=== PATIENT | female | born 1950 | race African-American/Black ===

== ENCOUNTER → 2016-10-09 | Outpatient (CLI) | payer MEDICARE ==
[~2016-10-09] MED LIST: HEPARIN SO5000 UNIT2 SUBQ; LEVEMIR FL100 UNIT/1 SUBQ; MAGNEBIND 3001 EACH PO; NORVASC5 MG ORAL; NOVOLOG100 UNITS1 SUBQ; ROCEPHIN 11 GM/50 ML IVPB
[2016-10-09 16:42] LABS: BASOPHILS % (AUTO) 1.4 % (0.0-2.0); EOSINOPHILS % (AUTO) 0.2 % (0.0-3.0); LYMPHOCYTES % (AUTO) 24.8 % (20.0-45.0); MEAN CORPUSCULAR HEMOGLOBIN 30.6 PG (27.0-31.0); MEAN CORPUSCULAR VOLUME 90 FL (80-99); MEAN PLATELET VOLUME 11.3 FL (6.5-10.1); MONOCYTES % (AUTO) 9.5 % (1.0-10.0); NEUTROPHILS % (AUTO) 64.1 % (45.0-75.0); PLATELET COUNT 177 K/UL (150-450); RED BLOOD COUNT 3.69 M/UL (4.20-5.40); RED CELL DISTRIBUTION WIDTH 11.8 % (11.6-14.8); WHITE BLOOD COUNT 5.4 K/UL (4.8-10.8)
[2016-10-09 16:56] LABS: HEMOGLOBIN A1C 6.2 % (< 6.0)
[2016-10-09 16:57] LABS: CALCIUM 10.1 mg/dL (8.6-10.2); CHOLESTEROL/HDL RATIO 1.8 (3.3-4.4); CREATININE 1.9 mg/dL (0.5-0.9); POTASSIUM 4.6 mEQ/L (3.4-4.9)
[2016-10-09 17:07] LABS: THYROID STIMULATING HORMONE 1.98 uIU/mL (0.300-4.500)
== END | disposition home or self-care (01) ==
LOC: LAB 16:18
DX: I10 Essential (primary) hypertension (principal); E11.9 Type 2 diabetes mellitus without complications
CPT/HCPCS: 36415; 80048; 80061; 83036; 84443; 85025

== ENCOUNTER → 2016-12-04 | Outpatient (CLI) | payer MEDICARE ==
[2016-12-04 14:31] LABS: APPEARANCE,URINE CLEAR; BASOPHILS % (AUTO) 1.1 % (0.0-2.0); EOSINOPHILS % (AUTO) 0.4 % (0.0-3.0); KETONES,URINE NEGATIVE (NEGATIVE); LEUKOCYTE ESTERASE ,URINE 1+ (NEGATIVE); MEAN CORPUSCULAR HEMOGLOBIN 28.6 PG (27.0-31.0); MEAN CORPUSCULAR HGB CONC 31.4 G/DL (32.0-36.0); MEAN CORPUSCULAR VOLUME 91 FL (80-99); MONOCYTES % (AUTO) 10.4 % (1.0-10.0); NEUTROPHILS % (AUTO) 59.1 % (45.0-75.0); NITRITE,URINE NEGATIVE (NEGATIVE); PH,URINE 5 (4.5-8.0); PLATELET COUNT 180 K/UL (150-450); PROTEIN,URINE 2+ (NEGATIVE); RED BLOOD COUNT 3.78 M/UL (4.20-5.40); RED CELL DISTRIBUTION WIDTH 12.3 % (11.6-14.8); UROBILINOGEN,URINE NORMAL MG/DL (0.0-1.0); WHITE BLOOD COUNT 4.5 K/UL (4.8-10.8)
[2016-12-04 14:39] LABS: BACTERIA,URINE FEW /HPF; RBC,URINE 0-2 /HPF (0 - 2); SQUAMOUS EPITHELIAL CELL,UR FEW /LPF (NONE/OCC); WBC,URINE 0-2 /HPF (0 - 2)
[2016-12-04 14:51] LABS: CALCIUM 10.1 mg/dL (8.6-10.2); CREATININE 1.7 mg/dL (0.5-0.9); GLOMERULAR FILTRATION RATE 36.5 mL/min (>60); PHOSPHORUS 3.5 mg/dL (2.5-4.8); POTASSIUM 4.5 mEQ/L (3.4-4.9)
[2016-12-05 11:12] LABS: CALCIUM 9.8 mg/dL (8.7-10.3); PTH INTACT 74 pg/mL (15-65)
== END | disposition home or self-care (01) ==
LOC: LAB 14:03
DX: I12.9 Hypertensive chronic kidney disease with stage 1 through stage 4 chronic kidney disease, or unspecified chronic kidney disease (principal); E11.9 Type 2 diabetes mellitus without complications
CPT/HCPCS: 36415; 80048; 81003; 83970; 84100; 85025

== ENCOUNTER 2017-08-12 13:09 | Outpatient (CLI) | payer MEDICARE ==
[2017-08-12 13:37] LABS: EOSINOPHILS % (AUTO) 0.6 % (0.0-3.0); LYMPHOCYTES % (AUTO) 23.2 % (20.0-45.0); MEAN CORPUSCULAR HEMOGLOBIN 28.7 PG (27.0-31.0); MEAN CORPUSCULAR HGB CONC 31.2 G/DL (32.0-36.0); MEAN CORPUSCULAR VOLUME 92 FL (80-99); MEAN PLATELET VOLUME 10.1 FL (6.5-10.1); MONOCYTES % (AUTO) 8.6 % (1.0-10.0); NEUTROPHILS % (AUTO) 66.6 % (45.0-75.0); PLATELET COUNT 188 K/UL (150-450); RED BLOOD COUNT 3.61 M/UL (4.20-5.40); RED CELL DISTRIBUTION WIDTH 11.1 % (11.6-14.8); WHITE BLOOD COUNT 5.3 K/UL (4.8-10.8)
[2017-08-12 13:48] LABS: HEMOGLOBIN A1C 6.8 % (4.3-6.0)
[2017-08-12 13:59] LABS: ANION GAP 8 mmol/L (5-15); CALCIUM 9.9 MG/DL (8.5-10.1); CARBON DIOXIDE 30 MMOL/L (21-32); CHLORIDE 104 MMOL/L (98-107); CHOLESTEROL 181 MG/DL (< 200); CHOLESTEROL/HDL RATIO 1.8 (3.3-4.4); CREATININE 1.9 MG/DL (0.55-1.30); GLOMERULAR FILTRATION RATE 31.9 mL/min (>60); POTASSIUM 5.2 MMOL/L (3.5-5.1); SODIUM 142 MMOL/L (136-145); THYROID STIMULATING HORMONE 2.163 uiU/mL (0.360-3.740)
== END 2017-08-12 15:09 | disposition home or self-care (01) ==
LOC: LAB 13:09
DX: N18.9 Chronic kidney disease, unspecified (principal)
CPT/HCPCS: 36415; 80048; 80061; 83036; 84443; 85025

== ENCOUNTER 2017-10-07 16:07 | Outpatient (CLI) | payer MEDICARE ==
[2017-10-07 17:09] LABS: BASOPHILS % (AUTO) 1.1 % (0.0-2.0); EOSINOPHILS % (AUTO) 0.5 % (0.0-3.0); HEMATOCRIT 31.9 % (37.0-47.0); HEMOGLOBIN 9.9 G/DL (12.0-16.0); MEAN CORPUSCULAR VOLUME 92 FL (80-99); MONOCYTES % (AUTO) 8.7 % (1.0-10.0); NEUTROPHILS % (AUTO) 70.8 % (45.0-75.0); PLATELET COUNT 189 K/UL (150-450); RED BLOOD COUNT 3.48 M/UL (4.20-5.40); RED CELL DISTRIBUTION WIDTH 11.1 % (11.6-14.8); WHITE BLOOD COUNT 5.4 K/UL (4.8-10.8)
[2017-10-07 17:30] LABS: ANION GAP 9 mmol/L (5-15); BLOOD UREA NITROGEN 41 mg/dL (7-18); CALCIUM 9.6 MG/DL (8.5-10.1); CARBON DIOXIDE 31 MMOL/L (21-32); CHLORIDE 103 MMOL/L (98-107); CHOLESTEROL 206 MG/DL (< 200); CREATININE 2.3 MG/DL (0.55-1.30); HDL CHOLESTEROL 105 MG/DL (40-60); POTASSIUM 4.4 MMOL/L (3.5-5.1); SODIUM 143 MMOL/L (136-145); TRIGLYCERIDES 31 MG/DL (30-150)
== END 2017-10-07 18:07 | disposition home or self-care (01) ==
LOC: LAB 16:07
DX: R53.83 Other fatigue (principal)
CPT/HCPCS: 36415; 80048; 80061; 83036; 84443; 85025

== ENCOUNTER → 2018-01-08 | Outpatient (CLI) | payer MEDICARE ==
[2018-01-08 14:52] LABS: APPEARANCE,URINE CLEAR; BILIRUBIN, URINE NEGATIVE (NEGATIVE); COLOR,URINE PALE YELLOW; GLUCOSE, URINE (UA) NEGATIVE (NEGATIVE); KETONES,URINE NEGATIVE (NEGATIVE); LEUKOCYTE ESTERASE ,URINE 1+ (NEGATIVE); NITRITE,URINE NEGATIVE (NEGATIVE); PH,URINE 6 (4.5-8.0); PROTEIN,URINE 2+ (NEGATIVE); UROBILINOGEN,URINE NORMAL MG/DL (0.0-1.0)
[2018-01-08 15:57] LABS: ANION GAP 8 mmol/L (5-15); BLOOD UREA NITROGEN 32 mg/dL (7-18); CALCIUM 9.4 MG/DL (8.5-10.1); CARBON DIOXIDE 30 MMOL/L (21-32); CHLORIDE 103 MMOL/L (98-107); CREATININE 1.5 MG/DL (0.55-1.30); PHOSPHORUS 3.6 MG/DL (2.5-4.9); SODIUM 140 MMOL/L (136-145)
== END | disposition home or self-care (01) ==
LOC: LAB 14:31
DX: N18.3 Chronic kidney disease, stage 3 (moderate) (principal); E08.22 Diabetes mellitus due to underlying condition with diabetic chronic kidney disease
CPT/HCPCS: 36415; 80048; 81001; 83970; 84100

== ENCOUNTER 2018-04-09 13:37 | Outpatient (CLI) | payer MEDICARE ==
[2018-04-09 14:58] LABS: BASOPHILS % (AUTO) 1.3 % (0.0-2.0); EOSINOPHILS % (AUTO) 0.7 % (0.0-3.0); HEMOGLOBIN 9.5 G/DL (12.0-16.0); LYMPHOCYTES % (AUTO) 22.5 % (20.0-45.0); MEAN CORPUSCULAR VOLUME 88 FL (80-99); MONOCYTES % (AUTO) 7.8 % (1.0-10.0); NEUTROPHILS % (AUTO) 67.8 % (45.0-75.0); PLATELET COUNT 187 K/UL (150-450); RED BLOOD COUNT 3.43 M/UL (4.20-5.40); RED CELL DISTRIBUTION WIDTH 10.7 % (11.6-14.8); WHITE BLOOD COUNT 5.2 K/UL (4.8-10.8)
[2018-04-09 15:12] LABS: ANION GAP 7 mmol/L (5-15); BLOOD UREA NITROGEN 42 mg/dL (7-18); CARBON DIOXIDE 27 MMOL/L (21-32); CHLORIDE 103 MMOL/L (98-107); CHOLESTEROL 172 MG/DL (< 200); CREATININE 1.7 MG/DL (0.55-1.30); HDL CHOLESTEROL 103 MG/DL (40-60); PHOSPHORUS 4.1 MG/DL (2.5-4.9); POTASSIUM 4.4 MMOL/L (3.5-5.1); SODIUM 137 MMOL/L (136-145); TRIGLYCERIDES 19 MG/DL (30-150)
[2018-04-09 15:17] LABS: CALCIUM 9.2 MG/DL (8.5-10.1)
[2018-04-12 15:56] LABS: APPEARANCE,URINE CLEAR; BILIRUBIN, URINE NEGATIVE (NEGATIVE); COLOR,URINE PALE YELLOW; GLUCOSE, URINE (UA) NEGATIVE (NEGATIVE); KETONES,URINE NEGATIVE (NEGATIVE); LEUKOCYTE ESTERASE ,URINE NEGATIVE (NEGATIVE); NITRITE,URINE NEGATIVE (NEGATIVE); PH,URINE 5 (4.5-8.0); PROTEIN,URINE NEGATIVE (NEGATIVE); UROBILINOGEN,URINE NORMAL MG/DL (0.0-1.0)
== END 2018-04-09 15:37 | disposition home or self-care (01) ==
LOC: LAB 13:37
DX: N18.3 Chronic kidney disease, stage 3 (moderate) (principal); R53.1 Weakness; E03.9 Hypothyroidism, unspecified; E11.22 Type 2 diabetes mellitus with diabetic chronic kidney disease
CPT/HCPCS: 36415; 80048; 80061; 81001; 83970; 84100; 85025; 87086; 87181

== ENCOUNTER 2018-05-14 14:39 | Emergency (ER) | payer MEDICARE ==
[~2018-05-14] VITALS: Ht 157.5 cm; Wt 53.5 kg
[2018-05-14] MEDS ORDERED: GLIPIZIDE5 G1 MC (14:46)
[2018-05-14 14:55] VITALS: BP 108/50
[2018-05-14 15:38] LABS: BASOPHILS % (AUTO) 0.8 % (0.0-2.0); HEMATOCRIT 32.5 % (37.0-47.0); HEMOGLOBIN 10.4 G/DL (12.0-16.0); LYMPHOCYTES % (AUTO) 25.8 % (20.0-45.0); MEAN CORPUSCULAR VOLUME 87 FL (80-99); MONOCYTES % (AUTO) 10.7 % (1.0-10.0); NEUTROPHILS % (AUTO) 61.8 % (45.0-75.0); PLATELET COUNT 168 K/UL (150-450); RED BLOOD COUNT 3.73 M/UL (4.20-5.40); WHITE BLOOD COUNT 5.5 K/UL (4.8-10.8)
[2018-05-14 15:45] VITALS: BP 111/57
[2018-05-14 15:50] LABS: ANION GAP 9 mmol/L (5-15); BLOOD UREA NITROGEN 42 mg/dL (7-18); CALCIUM 9.1 MG/DL (8.5-10.1); CARBON DIOXIDE 28 MMOL/L (21-32); CHLORIDE 103 MMOL/L (98-107); CREATININE 1.9 MG/DL (0.55-1.30); POTASSIUM 4.3 MMOL/L (3.5-5.1); SODIUM 140 MMOL/L (136-145)
[2018-05-14 15:55] LABS: ALANINE AMINOTRANSFERASE 19 U/L (12-78); ALBUMIN 3.8 G/DL (3.4-5.0); ALBUMIN/GLOBULIN RATIO 0.8 (1.0-2.7); ALKALINE PHOSPHATASE 85 U/L (46-116); ASPARTATE AMINO TRANSFERASE 26 U/L (15-37); BILIRUBIN,TOTAL 0.2 MG/DL (0.2-1.0)
--- NOTE | 2018-05-14 16:36 | Emergency Room Report ---
History of Present Illness General Chief Complaint: General Complaint Source: Patient Present Illness HPI 67-year-old female presents to ED for evaluation. Patient states she was sent here for lab work. Patient does not know which doctor sent her. Patient does not know what labs to draw. Patient states that she was seen in her PMD office a few days ago and was told to get repeat blood work. States "something about my kidneys". History of diabetes. Accu-Chek within normal limits. States she feels fine. Denies any weakness. No other aggravating relieving factors. Denies any other associated symptoms Allergies: Coded Allergies: SULFA (SULFONAMIDE ANTIBIOTICS) (Verified Allergy, Intermediate, Hives, ) CODEINE (Verified Adverse Reaction, Mild, vomiting, 08/12/13) Patient History Past Medical History: DM, HTN, CVA/TIA Past Surgical History: none Pertinent Family History: none Social History: Denies: smoking, alcohol use, drug use Now: No Immunizations: UTD Reviewed Nursing Documentation: PMH: Agreed; PSxH: Agreed Nursing Documentation-PMH Hx Cardiac Problems: Yes Hx Hypertension: Yes Hx Diabetes: Yes Hx Cancer: No Hx Gastrointestinal Problems: No Hx Neurological Problems: Yes Hx Cerebrovascular Accident: Yes Physical Exam Vital Signs Date Time Temp Pulse Resp B/P (MAP) Pulse Ox O2 Delivery O2 Flow Rate FiO2 05/14/18 14:40 98.5 71 18 108/50 99 Room Air 98.4 Sp02 EP Interpretation: reviewed, normal General Appearance: no apparent distress, alert, GCS 15, non-toxic Head: normocephalic, atraumatic Eyes: bilateral eye normal inspection, bilateral eye PERRL ENT: hearing grossly normal, normal pharynx, no angioedema, normal voice Neck: full range of motion, supple/symm/no masses Respiratory: chest non-tender, lungs clear, normal breath sounds, speaking full sentences Cardiovascular #1: regular rate, rhythm, no edema Cardiovascular #2: 2+ carotid (R), 2+ carotid (L), 2+ radial (R), 2+ radial (L) , 2+ dorsalis pedis (R), 2+ dorsalis pedis (L) Gastrointestinal: normal bowel sounds, non tender, soft, non-distended, no guarding, no rebound Rectal: deferred Genitourinary: normal inspection, no CVA tenderness Musculoskeletal: back normal, gait/station normal, normal range of motion, non- tender Neurologic: alert, oriented x3, responsive, motor strength/tone normal, sensory intact, speech normal Psychiatric: judgement/insight normal, memory normal, mood/affect normal, no suicidal/homicidal ideation Reflexes: 3+ bicep (R), 3+ bicep (L), 3+ tricep (R), 3+ tricep (L), 3+ knee (R) , 3+ knee (L) Skin: normal color, no rash, warm/dry, well hydrated Lymphatic: no adenopathy Medical Decision Making Diagnostic Impression: Primary Impression: renal insufficiency Additional Impression: Encounter for generalized patient complaints ER Course Hospital Course 67-year-old female referred to ED for lab draw. history of diabetes Differential diagnoses include: dehydration, hyperglycemia, DKA Clinical course Patient placed on stretcher. On termite helper. After initial history and physical I ordered labs Labs-glucose WNL, no anion gap, bicarbonate normal, Cr 1.9. no leukocytosis. On prior lab draw in March creatinine 1.7. Patient made aware of findings. States she'll follow-up with her PMD i. I feel this is a highly complex case requiring extensive working including EKG/Rhythm strip, Xray/CT/US, Blood/urine lab work, repeat exams while in ED, and administration of strong opiates/narcotics for pain control, admission to hospital or close patient follow up. diagnosis -renal insufficiency, encounter for generalized patient complaints Stable and discharged to home. Followup with PMD. Return to ED if symptoms recur or worsen Labs Test 05/14/18 15:25 White Blood Count 5.5 K/UL (4.8-10.8) Red Blood Count 3.73 M/UL (4.20-5.40) Hemoglobin 10.4 G/DL (12.0-16.0) Hematocrit 32.5 % (37.0-47.0) Mean Corpuscular Volume 87 FL (80-99) Mean Corpuscular Hemoglobin 27.9 PG (27.0-31.0) Mean Corpuscular Hemoglobin Concent 32.1 G/DL (32.0-36.0) Red Cell Distribution Width 11.0 % (11.6-14.8) Platelet Count 168 K/UL (150-450) Mean Platelet Volume 11.0 FL (6.5-10.1) Neutrophils (%) (Auto) 61.8 % (45.0-75.0) Lymphocytes (%) (Auto) 25.8 % (20.0-45.0) Monocytes (%) (Auto) 10.7 % (1.0-10.0) Eosinophils (%) (Auto) 1.0 % (0.0-3.0) Basophils (%) (Auto) 0.8 % (0.0-2.0) Sodium Level 140 MMOL/L (136-145) Potassium Level 4.3 MMOL/L (3.5-5.1) Chloride Level 103 MMOL/L (98-107) Carbon Dioxide Level 28 MMOL/L (21-32) Anion Gap 9 mmol/L (5-15) Blood Urea Nitrogen 42 mg/dL (7-18) Creatinine 1.9 MG/DL (0.55-1.30) Estimat Glomerular Filtration Rate 31.9 mL/min (>60) Glucose Level 72 MG/DL (74-106) Calcium Level 9.1 MG/DL (8.5-10.1) Total Bilirubin 0.2 MG/DL (0.2-1.0) Aspartate Amino Transf (AST/SGOT) 26 U/L (15-37) Alanine Aminotransferase (ALT/SGPT) 19 U/L (12-78) Alkaline Phosphatase 85 U/L (46-116) Total Protein 8.3 G/DL (6.4-8.2) Albumin 3.8 G/DL (3.4-5.0) Globulin 4.5 g/dL Albumin/Globulin Ratio 0.8 (1.0-2.7) Last Vital Signs Date Time Temp Pulse Resp B/P (MAP) Pulse Ox O2 Delivery O2 Flow Rate FiO2 05/14/18 15:45 98.4 18 111/57 99 Room Air 98.4 05/14/18 14:40 71 Status: improved Disposition: HOME, SELF-CARE Condition: Stable Patient Instructions: Diabetes and Exercise Harshal Hardwick MD May 14, 2018 16:36
== END 2018-05-14 15:46 | disposition home or self-care (01) ==
LOC: EMR 15:20
DX: N28.9 Disorder of kidney and ureter, unspecified (principal); E11.9 Type 2 diabetes mellitus without complications; I10 Essential (primary) hypertension; Z86.73 Personal history of transient ischemic attack (TIA), and cerebral infarction without residual deficits
CPT/HCPCS: 36415; 80053; 85025; 99283

== ENCOUNTER 2018-11-10 20:51 | Inpatient (IN) | payer MEDICARE ==
[~2018-11-10] VITALS: Ht 160 cm; Wt 55.3 kg
[~2018-11-10 20:51] MED LIST changes: +GLIPIZIDE5 G1 MC
[2018-11-10 21:05] VITALS: BP 104/68
--- NOTE | 2018-11-10 21:05 | NUR ---
ED Nurse Note: Pt states she had chest pressure and SOB 1 hour ago. Pt states no pain now, and she just wants to check out herself.. pt connect to monitor with vital signs within normal limits. ermd on bedside. will continue to monitor.
--- NOTE | 2018-11-10 21:39 | Emergency Room Report ---
History of Present Illness General Chief Complaint: Chest Pain Source: Patient Present Illness HPI Patient present with complaints of midsternal chest pain and heaviness reports that it happened about one hour prior to arrival Patient was standing when she felt this discomfort Reports that after sitting and rest slowly started to dissipate Denies any active pain Denies any dyspnea or shortness of breath denies any vomiting or diarrhea Denies any change with position Pain was 4 out of 10 heavy Denies any other radiation Allergies: Coded Allergies: SULFA (SULFONAMIDE ANTIBIOTICS) (Verified Allergy, Intermediate, Hives, ) CODEINE (Verified Adverse Reaction, Mild, vomiting, 08/12/13) Patient History Past Medical History: see triage record Pertinent Family History: none Now: No Reviewed Nursing Documentation: PMH: Agreed; PSxH: Agreed Nursing Documentation-PMH Hx Cardiac Problems: Yes Hx Hypertension: Yes Hx Diabetes: Yes Hx Cancer: No Hx Gastrointestinal Problems: No Hx Neurological Problems: Yes Hx Cerebrovascular Accident: Yes Review of Systems All Other Systems: negative except mentioned in HPI Physical Exam Vital Signs Date Time Temp Pulse Resp B/P (MAP) Pulse Ox O2 Delivery O2 Flow Rate FiO2 11/10/18 20:56 98.6 81 18 104/68 99 Room Air Sp02 EP Interpretation: reviewed, normal General Appearance: well appearing, no apparent distress Head: normocephalic, atraumatic Eyes: bilateral eye PERRL, bilateral eye EOMI ENT: hearing grossly normal, normal pharynx, TMs + canals normal, uvula midline Neck: full range of motion, supple, no meningismus, no bony tend Respiratory: lungs clear, normal breath sounds, no rhonchi, no respiratory distress, no retraction, no accessory muscle use Cardiovascular #1: normal peripheral pulses, regular rate, rhythm, no edema, no gallop, no JVD, no murmur Gastrointestinal: normal bowel sounds, non tender, soft, no mass, no organomegaly, non-distended, no guarding, no hernia, no pulsatile mass, no rebound Genitourinary: no CVA tenderness Musculoskeletal: normal inspection Neurologic: oriented x3, responsive, director mobile media solutions III-XII nml as tested, motor strength/ tone normal, sensory intact Psychiatric: mood/affect normal Skin: normal color, no rash, warm/dry, palpation normal Lymphatic: normal inspection, no adenopathy Medical Decision Making Diagnostic Impression: Primary Impression: ACS (acute coronary syndrome) Additional Impression: Hypertensive urgency ER Course Patient is a fairly complex patient with multiple differential to consideration including but not limited to cardiac cardiopulmonary and vascular emergencies Patient's blood work reveals renal insufficiency at this time remains pain-free and otherwise asymptomatic given a description of the pain and presentation given the EKG patient admitted for further care Labs Test 11/10/18 21:20 White Blood Count 6.4 K/UL (4.8-10.8) Red Blood Count 3.94 M/UL (4.20-5.40) Hemoglobin 11.1 G/DL (12.0-16.0) Hematocrit 35.0 % (37.0-47.0) Mean Corpuscular Volume 89 FL (80-99) Mean Corpuscular Hemoglobin 28.1 PG (27.0-31.0) Mean Corpuscular Hemoglobin Concent 31.6 G/DL (32.0-36.0) Red Cell Distribution Width 11.5 % (11.6-14.8) Platelet Count 188 K/UL (150-450) Mean Platelet Volume 8.8 FL (6.5-10.1) Neutrophils (%) (Auto) 58.3 % (45.0-75.0) Lymphocytes (%) (Auto) 29.2 % (20.0-45.0) Monocytes (%) (Auto) 10.0 % (1.0-10.0) Eosinophils (%) (Auto) 1.1 % (0.0-3.0) Basophils (%) (Auto) 1.4 % (0.0-2.0) Sodium Level 139 MMOL/L (136-145) Potassium Level 4.5 MMOL/L (3.5-5.1) Chloride Level 102 MMOL/L (98-107) Carbon Dioxide Level 30 MMOL/L (21-32) Anion Gap 8 mmol/L (5-15) Blood Urea Nitrogen 26 mg/dL (7-18) Creatinine 1.7 MG/DL (0.55-1.30) Estimat Glomerular Filtration Rate 36.2 mL/min (>60) Glucose Level 122 MG/DL (74-106) Calcium Level 9.7 MG/DL (8.5-10.1) Total Bilirubin 0.3 MG/DL (0.2-1.0) Aspartate Amino Transf (AST/SGOT) 24 U/L (15-37) Alanine Aminotransferase (ALT/SGPT) 22 U/L (12-78) Alkaline Phosphatase 93 U/L (46-116) Total Creatine Kinase 112 U/L (26-308) Creatine Kinase MB 0.7 NG/ML (0.0-3.6) Creatine Kinase MB Relative Index 0.6 Troponin I 0.000 ng/mL (0.000-0.056) Total Protein 8.1 G/DL (6.4-8.2) Albumin 3.6 G/DL (3.4-5.0) Globulin 4.5 g/dL Albumin/Globulin Ratio 0.8 (1.0-2.7) EKG Diagnostic Results Rate: normal Rhythm: NSR ST Segments: other - Nonspecific ST/T-wave changes Rhythm Strip Diag. Results EP Interpretation: yes Rate: 66 Rhythm: NSR, no PVC's, no ectopy Chest X-Ray Diagnostic Results Chest X-Ray Diagnostic Results : Chest X-Ray Ordered: Yes # of Views/Limited/Complete: 1 View Indication: Chest Pain EP Interpretation: Yes Interpretation: no consolidation, no effusion, no pneumothorax Impression: No acute disease Electronically Signed by: Venus Watson DO Last Vital Signs Date Time Temp Pulse Resp B/P (MAP) Pulse Ox O2 Delivery O2 Flow Rate FiO2 11/10/18 20:56 98.6 81 18 104/68 99 Room Air Status: improved Disposition: ADMITTED INPATIENT Condition: Serious Venus Watson DO Nov 10, 2018 21:39
[2018-11-10 21:40] LABS: BASOPHILS % (AUTO) 1.4 % (0.0-2.0); EOSINOPHILS % (AUTO) 1.1 % (0.0-3.0); HEMOGLOBIN 11.1 G/DL (12.0-16.0); LYMPHOCYTES % (AUTO) 29.2 % (20.0-45.0); MEAN CORPUSCULAR VOLUME 89 FL (80-99); NEUTROPHILS % (AUTO) 58.3 % (45.0-75.0); PLATELET COUNT 188 K/UL (150-450); RED BLOOD COUNT 3.94 M/UL (4.20-5.40); RED CELL DISTRIBUTION WIDTH 11.5 % (11.6-14.8); WHITE BLOOD COUNT 6.4 K/UL (4.8-10.8)
[2018-11-10 21:46] LABS: ANION GAP 8 mmol/L (5-15); BLOOD UREA NITROGEN 26 mg/dL (7-18); CALCIUM 9.7 MG/DL (8.5-10.1); CARBON DIOXIDE 30 MMOL/L (21-32); CHLORIDE 102 MMOL/L (98-107); CREATININE 1.7 MG/DL (0.55-1.30); POTASSIUM 4.5 MMOL/L (3.5-5.1); SODIUM 139 MMOL/L (136-145)
[2018-11-10 22:00] LABS: ALANINE AMINOTRANSFERASE 22 U/L (12-78); ALBUMIN 3.6 G/DL (3.4-5.0); ALBUMIN/GLOBULIN RATIO 0.8 (1.0-2.7); ALKALINE PHOSPHATASE 93 U/L (46-116); ASPARTATE AMINO TRANSFERASE 24 U/L (15-37); BILIRUBIN,TOTAL 0.3 MG/DL (0.2-1.0); CKMB 0.7 NG/ML (0.0-3.6); CREATINE KINASE 112 U/L (26-308)
[2018-11-10] MEDS ORDERED: Enalaprilat 2.5mg/2ml Inj IV ONE (23:30)
[2018-11-10 23:37] VITALS: BP 155/61
[2018-11-10] MEDS ORDERED: JANUVIA100 MG ORAL (23:39)
[2018-11-10] MEDS ORDERED: STARLIX120 MG ORAL (23:39)
[2018-11-10] MEDS ORDERED: VITAMIN D400 INTLU ORAL (23:39)
--- NOTE | 2018-11-10 23:58 | NUR ---
pt was admitted to the ed, pt transfered to tele, report given to halima velasco.
--- NOTE | 2018-11-10 23:59 | NUR ---
NURSE NOTES: Received report from Jaxson Correia RN. Patient transferred to TELE floor from ED, arrived via gurney and transferred to bed with minimal staff assist. Belongings received and checked at bedside with accompanying ED RN and patient. Cardiac monitoring placed per protocol. No complaints of discomfort or chest pain noted at this time, head to toe assessment done at bedside. Will notify primary physician MD Tiffany for admit orders. Will continue to monitor
[2018-11-11] VITALS: BP 104/68
--- NOTE | 2018-11-11 01:30 | NUR ---
NURSE NOTES: Called and left message for MD Tiffany. regarding admit orders. Awaiting call back, will F/U.
[2018-11-11] MEDS ORDERED: Morphine Sulfate 4mg/ml Inj (IV/IM USE ONLY) IVP PRN (02:00)
[2018-11-11] MEDS ORDERED: Morphine Sulfate 2mg/ml Inj IVP PRN (02:00)
--- NOTE | 2018-11-11 02:06 | NUR ---
NURSE NOTES: Received call back from MD Tiffany. New orders received and carried out. Will continue to monitor
--- NOTE | 2018-11-11 02:30 | NUR ---
NURSE NOTES: Patient in bed asleep, in stable condition. Will continue to monitor
[2018-11-11 04:00] VITALS: BP 110/66
--- NOTE | 2018-11-11 04:16 | NUR ---
NURSE NOTES: Spoke with Abril, from [facility] Transfer center per MD Giana. No vacant bed available at this time. Will keep patient on floor and continue plan of care UFO. Addendum: 11/11/18 at 0420 by SUMMER MITCHELL RN Charted on wrong patient. Error in charting. Disregard above charting
[2018-11-11 05:30] LABS: ALANINE AMINOTRANSFERASE 10 U/L (12-78); ALBUMIN 2.9 G/DL (3.4-5.0); ALBUMIN/GLOBULIN RATIO 0.8 (1.0-2.7); ALKALINE PHOSPHATASE 75 U/L (46-116); ANION GAP 5 mmol/L (5-15); ASPARTATE AMINO TRANSFERASE 17 U/L (15-37); BILIRUBIN,TOTAL 0.3 MG/DL (0.2-1.0); BLOOD UREA NITROGEN 29 mg/dL (7-18); CALCIUM 9.1 MG/DL (8.5-10.1); CARBON DIOXIDE 31 MMOL/L (21-32); CHLORIDE 107 MMOL/L (98-107); CHOLESTEROL 200 MG/DL (< 200); CREATININE 1.8 MG/DL (0.55-1.30); HDL CHOLESTEROL 83 MG/DL (40-60); POTASSIUM 3.6 MMOL/L (3.5-5.1); SODIUM 143 MMOL/L (136-145); TRIGLYCERIDES 27 MG/DL (30-150)
[2018-11-11] MEDS: GlipiZIDE 5mg tab ORAL SCH (06:14)
[2018-11-11] MEDS ORDERED: NovoLOG Insulin Flexpen SUBQ SCH (06:30)
[2018-11-11] MEDS: Levemir Flexpen SUBQ SCH ×2 (06:42→16:30)
[2018-11-11] MEDS: NovoLOG Insulin Flexpen SUBQ SCH ×4 (06:43→21:00)
--- NOTE | 2018-11-11 07:29 | NUR ---
HAND-OFF: Report given to Jerry Almazan RN. Patient in stable condition, endorsed plan of care..
[2018-11-11 08:00] VITALS: BP 100/53
--- NOTE | 2018-11-11 08:49 | NUR ---
NURSE NOTES: received patient report from dao velasco. patient is on bed asleep. not in acute distress. sr on the monitor. no report of arrythmias last night. bed is low an dlocked for safety. will continue to monitor.
[2018-11-11] MEDS: Vitamin D 400 INTLU TAB ORAL SCH (09:44)
[2018-11-11] MEDS: Heparin 5000 units/ml inj SUBQ SCH ×2 (09:46→21:25)
[2018-11-11] MEDS: Aspirin Baby 81mg ORAL SCH (10:18)
--- NOTE | 2018-11-11 10:46 | Diagnostic Imaging Report ---
Indication: Chest pain Technique: One view of the chest Comparison: 12/04/2014 Findings: Patella foreign bodies, presumably external to the patient, overlies the lower central chest. Lungs and pleural spaces are clear. The heart size is normal. There is minimal upper thoracic scoliotic deformity. Impression: No acute process
--- NOTE | 2018-11-11 11:45 | NUR ---
NURSE NOTES: report given to jose velasco
--- NOTE | 2018-11-11 11:50 | NUR ---
NURSE NOTES: Pt received from JAMIE Payton alert and oriented x4 with no s/s of acute distress. IV site asymptomatic and patent. Bed in lowest position, call light andn belongings within reach.
--- NOTE | 2018-11-11 14:02 | History & Physical ---
History and Physical History & Physicial Pt was seen and examined. dictation service is not working. will try later Pk Allen MD Nov 11, 2018 14:02
--- NOTE | 2018-11-11 14:26 | History & Physical ---
History and Physical History & Physicial dictated # [id number] Pk Allen MD Nov 11, 2018 14:26
--- NOTE | 2018-11-11 17:30 | History and Physical Report ---
DATE OF ADMISSION: 11/10/2018 CHIEF COMPLAINT: Chest pain. HISTORY OF PRESENT ILLNESS: This is a 67-year-old female who is known to me from followup in my office. The patient has history of CKD, stage 3 and she was in her usual state of health until yesterday. She was cooking in the kitchen when she started having severe chest pressure and shortness of breath that lasted a few minutes. The patient's son took the patient to the emergency room here at the [facility] and she was admitted. She does not have any previous history of heart disease. PAST MEDICAL HISTORY: Includes history of diabetes mellitus, hypertension, previous history of strokes on both sides, and the patient is still able to ambulate with a cane. MEDICATIONS: Reviewed in the EMR. SOCIAL HISTORY: No history of smoking or alcohol abuse. ALLERGIES: No known drug allergies. REVIEW OF SYSTEMS: Noncontributory. PHYSICAL EXAMINATION: GENERAL: The patient is an elderly female, in no acute distress. VITAL SIGNS: Blood pressure is 100/53, pulse is 63, temperature 97.9, and respiratory rate is 16. HEENT: [place] conjunctivae. Anicteric sclerae. NECK: Supple. LUNGS: Clear to auscultation. HEART: S1 and S2 without murmurs or rubs. ABDOMEN: Soft and nontender. No masses. EXTREMITIES: No cyanosis or edema. LABORATORY FINDINGS: CBC shows WBC of 6200, hematocrit is 35, hemoglobin is 11.1, and platelet is 188,000. Chemistry panel shows a serum sodium of 143, potassium 3.6, chloride 107, CO2 31, BUN is 29, creatinine 1.8, glucose is 180, and hemoglobin A1c is 6.6. Troponins were negative x3. Albumin is 2.9. Triglycerides 27. LDL is 109 and HDL is 83. ASSESSMENT: This is a 67-year-old female who was admitted with chest pain, which appears to be atypical risk factor besides her age. She has diabetes and hypertension. So, acute coronary syndrome is ruled out. PLAN: The patient is seen by test engineer nuclear equipment, Dr. Dewitt, stress test is ordered. I will start the patient on statins because diabetes and LDL is more than 100. Diabetic medication . Case was discussed with the patient as well as son who is at bedside. Pk Allen M.D. DR: LAKISHA JOB#: [id number] CC:
--- NOTE | 2018-11-11 17:37 | NUR ---
CASE MANAGEMENT: INITIAL REVIEW 11/11/2018 67 YO F PRESENTED TO OUR ED FROM HOME CC: DAJUAN PMHx: HTN. DM. CVA. SI:ACS. HYPERTENSIVE URGENCY. T 98.6 HR 81 RR 18 B/P 104/68 SATS 99% ON RA BUN 26 CR 1.7 GLU 122 IS: CXR (-) PATIENT ADMITTED TO TELE 11/10/2018 @ 1875 DCP: PATIENT TO BE DISCHARGED TO HOME ONCE MEDICALLY CLEARED. PLAN OF CARE: CARDIO EVAL >> STRESS TEST Addendum: 11/13/18 at 0746 by Kinza Brooks CM INTERQUAL MET FOR OBS
--- NOTE | 2018-11-11 19:25 | NUR ---
HAND-OFF: Report given to Victor Manuel Sandoval RN.
--- NOTE | 2018-11-11 19:30 | NUR ---
NURSE NOTES: Received report from Jaxson Huerta RN. Patient in bed AAO X4 with HOB elevated at semi fowlers with no complaints of acute pain at this time. Kept clean, dry and comfortable in bed and is currently on R/A tolerating well and SP02 at 95-96% with no S/S of respiratory distress. IV line intact and patent SL, also placed on continuous cardiac monitoring per protocol. Safety precaution in place; siderails x3 up, call light within reach, bed in lowest position, brakes and alarm on at all times. Needs and wants anticipated and attended. Will continue plan of care and monitor for any changes noted
[2018-11-11 20:00] VITALS: BP 144/68
[2018-11-11] MEDS ORDERED: Atorvastatin 20mg tab ORAL SCH (21:00)
--- NOTE | 2018-11-11 21:13 | Cardiology Progress Note ---
Assessment/Plan Assessment/Plan [id number] dc home to fu as outo for mpi Objective Last 24 Hour Vital Signs Date Time Temp Pulse Resp B/P (MAP) Pulse Ox O2 Delivery O2 Flow Rate FiO2 11/11/18 16:00 68 11/11/18 12:00 68 11/11/18 09:00 63 100/53 11/11/18 08:00 Room Air 11/11/18 08:00 73 11/11/18 08:00 97.9 63 16 100/53 (69) 98 11/11/18 00:48 Room Air 11/11/18 00:00 79 11/11/18 00:00 98.0 81 18 104/68 (80) 99 11/10/18 23:58 98.0 82 14 155/61 100 Room Air 82 11/10/18 23:37 82 14 155/61 100 Room Air 82 11/10/18 23:27 181/75 Intake and Output 11/10/18 11/11/18 19:00 07:00 Intake Total 120 ml Balance 120 ml Intake Oral 120 ml # Voids 2 # Bowel Movements 1 Laboratory Tests Test 11/10/18 21:20 11/11/18 03:50 11/11/18 11:50 White Blood Count 6.4 K/UL (4.8-10.8) Red Blood Count 3.94 M/UL (4.20-5.40) L Hemoglobin 11.1 G/DL (12.0-16.0) L Hematocrit 35.0 % (37.0-47.0) L Mean Corpuscular Volume 89 FL (80-99) Mean Corpuscular Hemoglobin 28.1 PG (27.0-31.0) Mean Corpuscular Hemoglobin Concent 31.6 G/DL (32.0-36.0) L Red Cell Distribution Width 11.5 % (11.6-14.8) L Platelet Count 188 K/UL (150-450) Mean Platelet Volume 8.8 FL (6.5-10.1) Neutrophils (%) (Auto) 58.3 % (45.0-75.0) Lymphocytes (%) (Auto) 29.2 % (20.0-45.0) Monocytes (%) (Auto) 10.0 % (1.0-10.0) Eosinophils (%) (Auto) 1.1 % (0.0-3.0) Basophils (%) (Auto) 1.4 % (0.0-2.0) Sodium Level 139 MMOL/L (136-145) 143 MMOL/L (136-145) Potassium Level 4.5 MMOL/L (3.5-5.1) 3.6 MMOL/L (3.5-5.1) Chloride Level 102 MMOL/L (98-107) 107 MMOL/L (98-107) Carbon Dioxide Level 30 MMOL/L (21-32) 31 MMOL/L (21-32) Anion Gap 8 mmol/L (5-15) 5 mmol/L (5-15) Blood Urea Nitrogen 26 mg/dL (7-18) H 29 mg/dL (7-18) H Creatinine 1.7 MG/DL (0.55-1.30) H 1.8 MG/DL (0.55-1.30) H Estimat Glomerular Filtration Rate 36.2 mL/min (>60) 33.9 mL/min (>60) Glucose Level 122 MG/DL (74-106) H 180 MG/DL (74-106) H Calcium Level 9.7 MG/DL (8.5-10.1) 9.1 MG/DL (8.5-10.1) Total Bilirubin 0.3 MG/DL (0.2-1.0) 0.3 MG/DL (0.2-1.0) Aspartate Amino Transf (AST/SGOT) 24 U/L (15-37) 17 U/L (15-37) Alanine Aminotransferase (ALT/SGPT) 22 U/L (12-78) 10 U/L (12-78) L Alkaline Phosphatase 93 U/L (46-116) 75 U/L (46-116) Total Creatine Kinase 112 U/L (26-308) Creatine Kinase MB 0.7 NG/ML (0.0-3.6) Creatine Kinase MB Relative Index 0.6 Troponin I 0.000 ng/mL (0.000-0.056) 0.000 ng/mL (0.000-0.056) 0.000 ng/mL (0.000-0.056) Total Protein 8.1 G/DL (6.4-8.2) 6.5 G/DL (6.4-8.2) Albumin 3.6 G/DL (3.4-5.0) 2.9 G/DL (3.4-5.0) L Globulin 4.5 g/dL 3.6 g/dL Albumin/Globulin Ratio 0.8 (1.0-2.7) L 0.8 (1.0-2.7) L Hemoglobin A1c 6.6 % (4.3-6.0) H Triglycerides Level 27 MG/DL (30-150) L Cholesterol Level 200 MG/DL (< 200) LDL Cholesterol 109 mg/dL (<100) H HDL Cholesterol 83 MG/DL (40-60) H Cholesterol/HDL Ratio 2.4 (3.3-4.4) L Nir Dewitt MD Nov 11, 2018 21:13
[2018-11-12] VITALS: BP 136/66
--- NOTE | 2018-11-12 03:00 | NUR ---
NURSE NOTES: Patient in bed asleep with no S/S of distress noted. Will continue to monitor
[2018-11-12 04:00] VITALS: BP 132/59
--- NOTE | 2018-11-12 05:15 | Consultation ---
DATE OF CONSULTATION: 11/11/2018 CARDIOLOGY CONSULTATION CONSULTING PHYSICIAN: Nir Dewitt M.D. REFERRING PHYSICIAN: Pk Allen M.D. REASON FOR REFERRAL: Chest pain. HISTORY OF PRESENT ILLNESS: This is an elderly female, who is a patient of Dr. Allen, who has renal insufficiency, who presented to the hospital because of the chest pain. She tells me that she has got a pain above the left breast, below the clavicle, has lasted whole day. She does not have the pain at this time although the pain gradually got better. There is no relieving or exacerbating factors noticed by the patient. The pain just gradually got better over a day she states. There is no PND or orthopnea. She uses one pillow. There is no dizziness or lightheadedness on standing. She has occasional palpitations. PAST MEDICAL HISTORY: Positive for diabetes. She has a history of high blood pressure at times. There is no heart attack. She has a history of cervical cancer. No stroke. No hepatitis. She does have history of tuberculosis, although she was treated as a child. She has rheumatoid arthritis and she has chronic renal insufficiency. No thyroid problems. No anemia, HIV/AIDS, or any blood clots according to herself. ALLERGIES: She is allergic to sulfa and codeine. SOCIAL HISTORY: Never smoked. Never drank. She lives at home. She has apparently her son that lives around here. Her daughter lives in [place]. REVIEW OF SYSTEMS: GASTROINTESTINAL: She is positive for constipation. GENITOURINARY: Negative. PULMONARY: Occasional coughing. CONSTITUTIONAL: Negative. NEUROLOGIC: Negative. She walks with the help of a cane. PHYSICAL EXAMINATION: GENERAL: Shows to be elderly female, in no respiratory distress. HEENT: Unremarkable. NECK: Supple. No jugular venous distention. No abdominojugular reflux noted. LUNGS: Clear to auscultation and percussion. CARDIAC: S1 is normal. S2 is normal. Regular rate and rhythm. No heaves, thrills, gallops, or rubs are noted. ABDOMEN: Soft, nontender. Positive bowel sounds. EXTREMITIES: There is no clubbing, cyanosis, nor is there any edema. NEUROLOGICAL: She is awake, alert, and responsive, in no apparent respiratory distress. LABORATORY AND DIAGNOSTIC DATA: Laboratory values, three sets of cardiac enzymes are all zero. Sodium 142, potassium 3.6, chloride 107, bicarb 31, BUN of 29, creatinine 1.8, and glucose of 180. A1c of 6.6, calcium is 9.1. Liver function tests are normal. Albumin of 2.9. Total cholesterol 200, LDL of 109, HDL of 83. Her white count is 6.4, hemoglobin 11, and platelet count of 188. She did have an x-ray performed in the emergency room that shows no acute process. Her EKG showed normal sinus rhythm, no ST or T-wave abnormalities. An echocardiogram performed preliminary report appears to show normal LV systolic function. No significant other valvular problems. ASSESSMENT AND PLAN: 1. Atypical chest pain. 2. Diabetes. 3. Hypertension. 4. Hyperlipidemia. 5. Chronic renal insufficiency. Dr. Allen, this patient was seen in cardiac consultation. The patient's chest pain is somewhat atypical. Despite the fact that she had chest pain for 24 hours, her cardiac enzymes are completely negative. Her EKG is negative. Her echocardiogram is negative. Her chest x-ray is negative. She does however have multiple risk factors for coronary artery disease. I think at some point that she should undergo myocardial perfusion imaging in a state where she has better chances of getting more accurate response. This will be arranged for her as an outpatient. She has my card and she was told to make an appointment to follow up with me so I can make those arrangements for her. In the meantime, she should continue on aspirin and Lipitor and her diabetic medications and follow up with me as an outpatient. Nir Dewitt M.D. DR: JUAN FRANCISCO JOB#: [id number] CC:
[2018-11-12] MEDS: NovoLOG Insulin Flexpen SUBQ SCH ×2 (05:42→11:30)
[2018-11-12] MEDS: Levemir Flexpen SUBQ SCH (05:43)
--- NOTE | 2018-11-12 05:44 | NUR ---
NURSE NOTES: Amy 8u held. BS is borderline hypoglycemic.
[2018-11-12] MEDS: GlipiZIDE 5mg tab ORAL SCH (06:19)
[2018-11-12] MEDS ORDERED: sitaGLIPtin 50mg tab ORAL SCH (06:30)
--- NOTE | 2018-11-12 07:20 | NUR ---
Received bedside report from Victor Manuel. Pt A/O x4, ambulates with assistance, reported no pain. Bed on lowest position with brakes on. Call light within reach. IV is intact and patent no sign of infection.
--- NOTE | 2018-11-12 07:25 | NUR ---
HAND-OFF: Report given to Jerry Almazan RN. Patient in stable condition, endorsed plan of care
[2018-11-12 08:00] VITALS: BP 155/76
[2018-11-12] MEDS ORDERED: Tums 500mg ORAL SCH (09:00)
[2018-11-12] MEDS ORDERED: Magnesium Oxide 400mg tab ORAL SCH (09:00)
[2018-11-12] MEDS: Aspirin Baby 81mg ORAL SCH (09:36)
[2018-11-12] MEDS: Vitamin D 400 INTLU TAB ORAL SCH (09:36)
[2018-11-12] MEDS: Heparin 5000 units/ml inj SUBQ SCH (09:37)
[2018-11-12 12:00] VITALS: BP 152/86
[2018-11-12] MEDS ORDERED: ASPIRIN81 MG ORAL (14:26)
--- NOTE | 2018-11-12 14:31 | General Progress Note ---
Assessment/Plan Problem List: (1) CKD stage 3 due to type 2 diabetes mellitus ICD Codes: E11.22 - Type 2 diabetes mellitus with diabetic chronic kidney disease; N18.3 - Chronic kidney disease, stage 3 (moderate) SNOMED: 30853146, 334388302963 (2) ACS (acute coronary syndrome) ICD Codes: I24.9 - Acute ischemic heart disease, unspecified SNOMED: 729020100 (3) Diabetes ICD Codes: E11.9 - Type 2 diabetes mellitus without complications SNOMED: 44767058 Assessment/Plan Dc today Stress test as outpt Subjective Allergies: Coded Allergies: SULFA (SULFONAMIDE ANTIBIOTICS) (Verified Allergy, Intermediate, Hives, ) CODEINE (Verified Adverse Reaction, Mild, vomiting, 08/12/13) Subjective feels ok Objective Last 24 Hour Vital Signs Date Time Temp Pulse Resp B/P (MAP) Pulse Ox O2 Delivery O2 Flow Rate FiO2 11/12/18 09:00 Room Air 11/12/18 08:00 97.7 75 18 155/76 (102) 99 11/12/18 04:00 98.2 59 18 132/59 (83) 99 11/12/18 04:00 56 11/12/18 00:00 98.4 57 18 136/66 (89) 99 11/12/18 00:00 60 11/11/18 21:00 Room Air 11/11/18 20:00 98.1 68 18 144/68 (93) 99 11/11/18 20:00 77 11/11/18 16:00 68 Intake and Output 11/11/18 11/12/18 19:00 07:00 Intake Total 360 ml 120 ml Balance 360 ml 120 ml Intake Oral 360 ml 120 ml # Voids 2 1 # Bowel Movements 1 1 Height (Feet): 5 Height (Inches): 3.00 Weight (Pounds): 122 Cardiovascular: normal rate Respiratory/Chest: lungs clear Pk Allen MD Nov 12, 2018 14:31
--- NOTE | 2018-11-13 16:15 | Cardiology Report ---
APPROVED REPORT EKG Measurement Heart [id number] HI [id number] Normal sinus rhythm Possible Left atrial enlargement Low voltage QRS Borderline ECG
--- NOTE | 2018-11-15 10:50 | Discharge Summary ---
Discharge Summary Discharge Summary _ DATE OF ADMISSION: 11/10/2018 DATE OF DISCHARGE: 11/12/2018 DISCHARGED BY: Dr. Allen REASON FOR ADMISSION: 67 years old female with past medical history of diabetes mellitus, hypertension , prior history of stroke on both sides, history of chronic kidney disease stage III , presented to emergency room for evaluation from home due to chest pressure and shortness of breath episode that lasted few minutes. Patient denied previous history of heart disease. Upon evaluation vital signs were stable, laboratory workup revealed no leukocytosis , mild anemia with hemoglobin 11.1 and hematocrit 35. Troponin was negative. EKG revealed sinus rhythm, no acute ischemic changes. BUN 26, creatinine 1.7, consistent with known history of chronic kidney disease stage III. Stable electrolytes, LFT . Chest x-ray revealed no acute cardiopulmonary pathology. Patient was admitted to telemetry floor for further management. CONSULTANTS: labor and employment paralegal Dr. Dewitt [facility] COURSE: Patient admitted to telemetry floor. Patient was started on antiplatelet therapy with aspirin. Cardiology consulted. Serial troponin were negative. EKG revealed no acute ischemic changes. Patient was ruled out for acute myocardial infarction . Echocardiogram revealed preserved ejection fraction with mild left ventricular hypertrophy. No evidence of wall motion abnormality. Right ventricular systolic pressure of 34. Lipid panel revealed elevated LDL of 109. Stable total cholesterol and triglycerides. Statin was continued. Patient was educated on diabetic low-fat low-cholesterol diet. Blood sugar was managed with oral Starlix and Glucotrol, long-acting Levemir. and short acting sliding scale of insulin implemented as needed. hemoglobin A1c-6.6, at goal. DVT prophylaxis provided. Blood pressure was managed with calcium channel jt, and remained stable. Per labor and employment paralegal , patient had atypical chest pain. But due to the fact, that the patient had multiply risk factors for coronary artery disease, he recommended to undergo myocardial perfusion imaging that could be done as an outpatient, sine all troponin were negative, and ECG was unremarkable, without acute ischemic changes. Pulse oximetry was stable on room air. No further chest pain. Patient was stable for discharge home with outpatient follow-up with labor and employment paralegal for myocardial perfusion scan. FINAL DIAGNOSES: Atypical chest pain with multiply risk factor for coronary artery disease Possible acute coronary syndrome Hypertension Diabetes mellitus Chronic kidney disease stage III due to type 2 diabetes mellitus Hyperlipidemia DISCHARGE MEDICATIONS: See Medication Reconciliation list. DISCHARGE INSTRUCTIONS: Patient was discharged home . Follow up with primary care provider in one week. Follow-up with a labor and employment paralegal as outpatient for myocardial perfusion scan. I have been assigned to dictate discharge summary for this account. I was not involved in the patient's management. Lore Schreiber NP Nov 15, 2018 10:50
--- NOTE | 2018-11-15 13:01 | Cardiology Report ---
APPROVED REPORT EXAM: Two-dimensional and M-mode echocardiogram with Doppler and color Doppler. INDICATION Left ventricular function. M-Mode DIMENSIONS IVSd1.0 (0.7-1.1cm)Left Atrium (MM)2.9 (1.6-4.0cm) LVDd3.6 (3.5-5.6cm)Aortic Root2.2 (2.0-3.7cm) PWd0.9 (0.7-1.1cm)Aortic Cusp Exc.1.7 (1.5-2.0cm) IVSs1.5 cm LVDs2.3 (2.5-4.0cm) PWs1.7 cm Normal left ventricular chamber size, systolic function and wall motion. Left ventricular ejection fraction estimated to be 60-65 %. Mild left ventricular hypertrophy by 2D. No evidence of pericardial effusion All other cardiac chamber sizes are within normal limits. Focal aortic valve sclerosis with adequate cusp excursion. Thickened mitral valve leaflets with normal excursion. Mitral annulus and aortic root calcification. Pulmonic valve not well visualized. Normal tricuspid valve structure. IVC measured at 2.1 cm with slight physiologic collapse. A color flow and spectral Doppler study was performed and revealed: No aortic regurgitation. Trace mitral regurgitation. Mitral diastolic velocities suggest reduced left ventricular relaxation c/w mild LV diastolic dysfunction (Grade I) Trace to mild tricuspid regurgitation. Tricuspid systolic velocities suggests peak right ventricular systolic pressure of 34 mmHg. Pulmonic regurgitation present.
== END 2018-11-12 17:59 | disposition home or self-care (01) | DRG 311 ==
LOC: EMR 21:30 → 2E 22:09 → EDBEDREQ 23:10
DX: I24.9 Acute ischemic heart disease, unspecified (principal); I12.9 Hypertensive chronic kidney disease with stage 1 through stage 4 chronic kidney disease, or unspecified chronic kidney disease; E11.22 Type 2 diabetes mellitus with diabetic chronic kidney disease; R07.89 Other chest pain; N18.3 Chronic kidney disease, stage 3 (moderate); E78.5 Hyperlipidemia, unspecified; M06.9 Rheumatoid arthritis, unspecified; Z85.41 Personal history of malignant neoplasm of cervix uteri; Z86.11 Personal history of tuberculosis; Z88.6 Allergy status to analgesic agent; Z88.2 Allergy status to sulfonamides
CPT/HCPCS: 36415; 71045; 80053; 80061; 82550; 82553; 82962; 83036; 84484; 85025; 93005; 93306; 96374; 99285; J1815; S5561

== ENCOUNTER 2018-12-16 11:33 | Outpatient (CLI) | payer MEDICARE ==
[~2018-12-16 11:33] MED LIST changes: +ASPIRIN81 MG ORAL; +JANUVIA100 MG ORAL; +STARLIX120 MG ORAL; +VITAMIN D400 INTLU ORAL
[2018-12-16 12:30] LABS: APPEARANCE,URINE CLEAR; BASOPHILS % (AUTO) 1.6 % (0.0-2.0); BILIRUBIN, URINE NEGATIVE (NEGATIVE); COLOR,URINE PALE YELLOW; EOSINOPHILS % (AUTO) 1.2 % (0.0-3.0); GLUCOSE, URINE (UA) NEGATIVE (NEGATIVE); HEMATOCRIT 34.2 % (37.0-47.0); KETONES,URINE NEGATIVE (NEGATIVE); LEUKOCYTE ESTERASE ,URINE NEGATIVE (NEGATIVE); LYMPHOCYTES % (AUTO) 33.5 % (20.0-45.0); MEAN CORPUSCULAR VOLUME 89 FL (80-99); MONOCYTES % (AUTO) 11.8 % (1.0-10.0); NEUTROPHILS % (AUTO) 51.9 % (45.0-75.0); NITRITE,URINE NEGATIVE (NEGATIVE); PH,URINE 7 (4.5-8.0); PLATELET COUNT 172 K/UL (150-450); PROTEIN,URINE 1+ (NEGATIVE); RED BLOOD COUNT 3.86 M/UL (4.20-5.40); RED CELL DISTRIBUTION WIDTH 11.9 % (11.6-14.8); UROBILINOGEN,URINE NORMAL MG/DL (0.0-1.0); WHITE BLOOD COUNT 7.5 K/UL (4.8-10.8)
[2018-12-16 12:59] LABS: ANION GAP 8 mmol/L (5-15); BLOOD UREA NITROGEN 36 mg/dL (7-18); CALCIUM 9.4 MG/DL (8.5-10.1); CARBON DIOXIDE 30 MMOL/L (21-32); CHLORIDE 104 MMOL/L (98-107); CHOLESTEROL 218 MG/DL (< 200); CREATININE 1.6 MG/DL (0.55-1.30); HDL CHOLESTEROL 98 MG/DL (40-60); PHOSPHORUS 3.7 MG/DL (2.5-4.9); POTASSIUM 3.5 MMOL/L (3.5-5.1); SODIUM 142 MMOL/L (136-145); TRIGLYCERIDES 38 MG/DL (30-150)
== END 2018-12-16 13:33 | disposition home or self-care (01) ==
LOC: LAB 11:33
DX: I12.9 Hypertensive chronic kidney disease with stage 1 through stage 4 chronic kidney disease, or unspecified chronic kidney disease (principal); N18.3 Chronic kidney disease, stage 3 (moderate)
CPT/HCPCS: 36415; 80048; 80061; 81003; 83970; 84100; 85025

== ENCOUNTER 2019-03-09 17:16 | Outpatient (CLI) | payer MEDICARE ==
[2019-03-09 17:43] LABS: BASOPHILS % (AUTO) 1.4 % (0.0-2.0); EOSINOPHILS % (AUTO) 1.2 % (0.0-3.0); HEMATOCRIT 35.9 % (37.0-47.0); HEMOGLOBIN 11.5 G/DL (12.0-16.0); LYMPHOCYTES % (AUTO) 30.3 % (20.0-45.0); MEAN CORPUSCULAR VOLUME 86 FL (80-99); MONOCYTES % (AUTO) 10.7 % (1.0-10.0); NEUTROPHILS % (AUTO) 56.4 % (45.0-75.0); PLATELET COUNT 195 K/UL (150-450); RED CELL DISTRIBUTION WIDTH 11.4 % (11.6-14.8); WHITE BLOOD COUNT 5.4 K/UL (4.8-10.8)
[2019-03-09 18:41] LABS: ALANINE AMINOTRANSFERASE 23 U/L (12-78); ALBUMIN 4.2 G/DL (3.4-5.0); ALBUMIN/GLOBULIN RATIO 1.1 (1.0-2.7); ALKALINE PHOSPHATASE 89 U/L (46-116); ANION GAP 9 mmol/L (5-15); ASPARTATE AMINO TRANSFERASE 25 U/L (15-37); BILIRUBIN,TOTAL 0.2 MG/DL (0.2-1.0); BLOOD UREA NITROGEN 23 mg/dL (7-18); CALCIUM 9.7 MG/DL (8.5-10.1); CARBON DIOXIDE 32 MMOL/L (21-32); CHLORIDE 100 MMOL/L (98-107); CHOLESTEROL 224 MG/DL (< 200); CREATININE 1.3 MG/DL (0.55-1.30); HDL CHOLESTEROL 103 MG/DL (40-60); POTASSIUM 3.8 MMOL/L (3.5-5.1); SODIUM 141 MMOL/L (136-145); TRIGLYCERIDES 43 MG/DL (30-150)
== END 2019-03-09 19:16 | disposition home or self-care (01) ==
LOC: LAB 17:16
DX: E11.9 Type 2 diabetes mellitus without complications (principal)
CPT/HCPCS: 36415; 80053; 80061; 82306; 82607; 83036; 84443; 85025

== ENCOUNTER 2019-05-19 11:12 | Inpatient (IN) | payer MEDICARE ==
[~2019-05-19] VITALS: Ht 160 cm; Wt 54.9 kg
--- NOTE | 2019-05-19 11:25 | NUR ---
ED Nurse Note: PT WALKED IN TO ER TODAY FROM HOME. AOX3 - NOT ORIENTED TO TIME. DAUGHTER AT BEDSIDE. PER PT'S DAUGHTER, PT WAS SENT TO ER TODAY BY DR JUAREZ DUE TO WORSENING OF DEMENTIA. PT'S DAUGHTER STATES SHE IS VISITING AND WOULD LIKE ASSISTANCE WITH PLACEMENT FOR HER MOTHER BEFORE SHE HEADS BACK HOME. PT STATES SHE HAS NO COMPLAINTS AND IS "FEELING FINE."
--- NOTE | 2019-05-19 11:26 | NUR ---
ED Nurse Note: PT'S DAUGHTER STATES PT WAS ADMITTED TO [facility] FOR STROKE AND WAS DISCHARGED 05/12/19. NO OBVIOUS DEFICITS. PT ABLE TO AMBULATE WITH OUT USE OF ASSISTANCE OR ASSISTIVE DEVICE.
--- NOTE | 2019-05-19 11:40 | NUR ---
ED Nurse Note: PT TO CT VIA ORTIZ.
[2019-05-19 11:43] VITALS: BP 146/78
--- NOTE | 2019-05-19 11:53 | NUR ---
ED Nurse Note: PT BACK FROM CT VIA ORTIZ.
--- NOTE | 2019-05-19 12:07 | Diagnostic Imaging Report ---
Indications: Altered mental status Technique: Spiral acquisitions obtained through the brain. Angled axial and coronal 5 x 5 mm slices were reconstructed. Total dose length product 1305.71 mGycm. CTDI vol(s) 70.38 mGy. Dose reduction achieved using automated exposure control Comparison: 08/12/2013 Findings: No acute intracranial hemorrhage or edema. No mass effect nor midline shift. There is mild age-related enlargement of the ventricles and extra-axial CSF spaces. There is periventricular deep white matter low-attenuation, consistent with chronic microvascular ischemic changes. Normal jonas-white differentiation. Old lacunar infarcts are seen in the basal ganglia bilaterally. The included orbits are unremarkable. The included sinuses are unremarkable. The mastoids are clear. There is no significant interim change Impression: Chronic age-related changes, including old bilateral basal ganglia lacunar infarcts Negative for acute intracranial bleed or mass effect The CT scanner at [facility] is accredited by the [employer] and the scans are performed using protocols designed to limit radiation exposure to as low as reasonably achievable to attain images of sufficient resolution adequate for diagnostic evaluation.
--- NOTE | 2019-05-19 12:15 | NUR ---
ED Nurse Note: PT AMBULATED TO BATHROOM AND WAS ASKED TO PROVIDE URINE SAMPLE. PT WAS UNABLE TO PROVIDE SAMPLE. PT ASKED OF STRAIGHT CATHETER IS OKAY WITH HER TO OBTAIN SAMPLE. PT REFUSED. DR CRISTIANA LOPEZ.
[2019-05-19 12:47] LABS: INR 0.9 (0.9-1.1)
[2019-05-19 12:48] LABS: BASOPHILS % (AUTO) 2.1 % (0.0-2.0); EOSINOPHILS % (AUTO) 0.5 % (0.0-3.0); HEMATOCRIT 35.5 % (37.0-47.0); LYMPHOCYTES % (AUTO) 28.7 % (20.0-45.0); MEAN CORPUSCULAR VOLUME 85 FL (80-99); MONOCYTES % (AUTO) 8.3 % (1.0-10.0); NEUTROPHILS % (AUTO) 60.3 % (45.0-75.0); PLATELET COUNT 183 K/UL (150-450); RED BLOOD COUNT 4.15 M/UL (4.20-5.40); RED CELL DISTRIBUTION WIDTH 13.4 % (11.6-14.8)
[2019-05-19 12:51] LABS: ANION GAP 4 mmol/L (5-15); BLOOD UREA NITROGEN 36 mg/dL (7-18); CALCIUM 9.7 MG/DL (8.5-10.1); CARBON DIOXIDE 32 MMOL/L (21-32); CHLORIDE 104 MMOL/L (98-107); CREATININE 1.5 MG/DL (0.55-1.30); POTASSIUM 4.2 MMOL/L (3.5-5.1); SODIUM 140 MMOL/L (136-145)
[2019-05-19 12:56] LABS: ALANINE AMINOTRANSFERASE 20 U/L (12-78); ALBUMIN 3.7 G/DL (3.4-5.0); ALBUMIN/GLOBULIN RATIO 0.8 (1.0-2.7); ALKALINE PHOSPHATASE 82 U/L (46-116); ASPARTATE AMINO TRANSFERASE 22 U/L (15-37); BILIRUBIN,TOTAL 0.3 MG/DL (0.2-1.0)
--- NOTE | 2019-05-19 13:03 | Emergency Room Report ---
History of Present Illness General Chief Complaint: General Complaint Source: Patient, Family Member, Medical Record Present Illness HPI This patient is accompanied by her daughter. The patient suffered a CVA a few weeks ago and was seen at [facility]. She was discharged 2 weeks ago. Her daughter states that she lives alone and has been unable to do her activities of daily living. She seems to have more severe forgetfulness that is concerning for worsening dementia. The patient herself is very afraid and although does have some home health is very afraid at night. The daughter states she cannot live with her at this time. She brings her in for concern of the safety of her mother and her inability to do her activities of daily living. Allergies: Coded Allergies: SULFA (SULFONAMIDE ANTIBIOTICS) (Verified Allergy, Intermediate, Hives, ) CODEINE (Verified Adverse Reaction, Mild, vomiting, 08/12/13) Patient History Past Medical History: see triage record, DM, HTN, CVA/TIA Social History: Denies: smoking, alcohol use, drug use Reviewed Nursing Documentation: PMH: Agreed; PSxH: Agreed Nursing Documentation-PMH Past Medical History: No History, Except For Hx Cardiac Problems: Yes Hx Hypertension: Yes Hx Diabetes: Yes Hx Cancer: No Hx Gastrointestinal Problems: No Hx Neurological Problems: Yes Hx Cerebrovascular Accident: Yes - STROKE RIGHT SIDE OF THE BODY. Review of Systems All Other Systems: negative except mentioned in HPI Physical Exam Vital Signs Date Time Temp Pulse Resp B/P (MAP) Pulse Ox O2 Delivery O2 Flow Rate FiO2 05/19/19 11:21 98.1 77 18 151/76 (101) 98 Room Air Sp02 EP Interpretation: reviewed, normal General Appearance: no apparent distress, alert, GCS 15, non-toxic Head: normocephalic, atraumatic Eyes: bilateral eye normal inspection, bilateral eye PERRL ENT: hearing grossly normal, normal pharynx, no angioedema, normal voice Neck: full range of motion, supple/symm/no masses Respiratory: chest non-tender, lungs clear, normal breath sounds, no respiratory distress, no retraction, no accessory muscle use, speaking full sentences Cardiovascular #1: regular rate, rhythm, no edema Gastrointestinal: normal bowel sounds, non tender, soft, non-distended, no guarding, no rebound Rectal: deferred Musculoskeletal: back normal, gait/station normal, normal range of motion, non- tender Neurologic: alert, oriented x3, responsive, speech normal, other - R. sided weakness (baseline) Psychiatric: judgement/insight normal, memory normal, mood/affect normal, no suicidal/homicidal ideation Skin: no rash, normal color Medical Decision Making Diagnostic Impression: Primary Impression: CVA (cerebrovascular accident) Additional Impressions: Failure to thrive Impaired mobility and ADLs ER Course This patient has a recent CVA. She is unable to do her activities of daily living and is not safe to live alone. She also has had progression of her symptoms and forgetfulness. CT of the head shows no acute findings at this time. Laboratory work-up is unremarkable. The patient is admitted for further evaluation for deficient ADLs and progressive dementia. Laboratory Tests Test 05/19/19 11:55 White Blood Count 5.0 K/UL (4.8-10.8) Red Blood Count 4.15 M/UL (4.20-5.40) L Hemoglobin 12.0 G/DL (12.0-16.0) Hematocrit 35.5 % (37.0-47.0) L Mean Corpuscular Volume 85 FL (80-99) Mean Corpuscular Hemoglobin 28.9 PG (27.0-31.0) Mean Corpuscular Hemoglobin Concent 33.8 G/DL (32.0-36.0) Red Cell Distribution Width 13.4 % (11.6-14.8) Platelet Count 183 K/UL (150-450) Mean Platelet Volume 8.4 FL (6.5-10.1) Neutrophils (%) (Auto) 60.3 % (45.0-75.0) Lymphocytes (%) (Auto) 28.7 % (20.0-45.0) Monocytes (%) (Auto) 8.3 % (1.0-10.0) Eosinophils (%) (Auto) 0.5 % (0.0-3.0) Basophils (%) (Auto) 2.1 % (0.0-2.0) H Prothrombin Time 10.1 SEC (9.30-11.50) Prothrombin Time INR 0.9 (0.9-1.1) PTT 19 SEC (23-33) L Sodium Level 140 MMOL/L (136-145) Potassium Level 4.2 MMOL/L (3.5-5.1) Chloride Level 104 MMOL/L (98-107) Carbon Dioxide Level 32 MMOL/L (21-32) Anion Gap 4 mmol/L (5-15) L Blood Urea Nitrogen 36 mg/dL (7-18) H Creatinine 1.5 MG/DL (0.55-1.30) H Estimate Glomerular Filtration Rate 41.7 mL/min (>60) Glucose Level 130 MG/DL (74-106) H Calcium Level 9.7 MG/DL (8.5-10.1) Total Bilirubin Pending Aspartate Amino Transferase (AST) Pending Alanine Aminotransferase (ALT) Pending Alkaline Phosphatase Pending Total Protein Pending Albumin Pending Globulin Pending EKG Diagnostic Results Rate: normal Rhythm: NSR ST Segments: no acute changes Rhythm Strip Diag. Results EP Interpretation: yes Rate: 70's Rhythm: NSR, no PVC's, no ectopy CT/MRI/US Diagnostic Results CT/MRI/US Diagnostic Results : Imaging Test Ordered: CT head Impression No acute findings. Specifically no intracranial bleed, mass effect or edema. See official report. Last Vital Signs Date Time Temp Pulse Resp B/P (MAP) Pulse Ox O2 Delivery O2 Flow Rate FiO2 05/19/19 11:43 98.2 74 16 146/78 99 Room Air Disposition: ADMITTED INPATIENT Condition: Serious Referrals: Vidal Diaz MD (PCP) Mari Walker DO May 19, 2019 13:03
[2019-05-19] MEDS ORDERED: Miralax 17gm pkt ORAL PRN (13:15)
[2019-05-19] MEDS ORDERED: LORazepam Inj 2mg/ml 1ml IV PRN (13:15)
[2019-05-19] MEDS ORDERED: Nitroglycerin Subl 0.4mg tab SL PRN (13:15)
[2019-05-19] MEDS ORDERED: Albuterol/Ipratropium 3ml neb HHN PRN (13:15)
--- NOTE | 2019-05-19 13:22 | NUR ---
NURSE NOTES: Received telephone report from Daljit AYALA in ED. Patient is not yet on the unit.
--- NOTE | 2019-05-19 13:23 | NUR ---
ED Nurse Note: [facility] CALLED FOR PT REPORT. REPORT GIVEN TO JAMIE DELANEY. PT TAKEN UP TO [facility] VIA GURNEY WITH ALL BELONGINGS ACCOMPANIED BY EMT. VSS.
--- NOTE | 2019-05-19 13:25 | History and Physical ---
History of Present Illness General Date patient seen: May 19, 2019 Reason for Hospitalization: General Complaint Present Illness HPI 68 year of female with hx of HTN, DM, recent CVA, treated at [facility] [place], was brought in to ER by her son, since she is becoming more forgetful and can't take care of herself at home. Allergies: Coded Allergies: SULFA (SULFONAMIDE ANTIBIOTICS) (Verified Allergy, Intermediate, Hives, ) CODEINE (Verified Adverse Reaction, Mild, vomiting, 08/12/13) Medication History Scheduled Amlodipine Besylate (Norvasc), 2.5 MG ORAL DAILY, (Reported) Aspirin* (Aspirin*), 81 MG ORAL DAILY Glipizide* (Glipizide*), 5 MG ORAL DAILY, (Reported) Lisinopril (Lisinopril*), 5 MG ORAL DAILY, (Reported) Nateglinide (Starlix), 120 MG ORAL THREE TIMES A DAY, (Reported) Sitagliptin (Januvia), 100 MG ORAL DAILY, (Reported) Vitamin D (Vitamin D3), 400 UNITS ORAL DAILY, (Reported) Patient History Healthcare decision maker Resuscitation status Advanced Directive on File Past Medical/Surgical History Past Medical/Surgical History: (1) CVA (cerebral vascular accident) (2) Diabetes (3) CKD stage 3 due to type 2 diabetes mellitus (4) Uncontrolled diabetes mellitus Review of Systems Eye: Reports: no symptoms ENT: Reports: hearing loss Cardiovascular: Reports: no symptoms Gastrointestinal: Reports: no symptoms Physical Exam General Appearance: WD/WN Neck: non-tender, normal alignment, supple Respiratory/Chest: chest wall non-tender, lungs clear, normal breath sounds Breasts: no masses Cardiovascular/Chest: normal peripheral pulses Abdomen: normal bowel sounds Last 24 Hour Vital Signs Date Time Temp Pulse Resp B/P (MAP) Pulse Ox O2 Delivery O2 Flow Rate FiO2 05/19/19 11:43 98.2 74 16 146/78 99 Room Air 05/19/19 11:43 74 16 Room Air 05/19/19 11:21 98.1 77 18 151/76 (101) 98 Room Air Laboratory Tests Test 05/19/19 11:55 White Blood Count 5.0 K/UL (4.8-10.8) Red Blood Count 4.15 M/UL (4.20-5.40) L Hemoglobin 12.0 G/DL (12.0-16.0) Hematocrit 35.5 % (37.0-47.0) L Mean Corpuscular Volume 85 FL (80-99) Mean Corpuscular Hemoglobin 28.9 PG (27.0-31.0) Mean Corpuscular Hemoglobin Concent 33.8 G/DL (32.0-36.0) Red Cell Distribution Width 13.4 % (11.6-14.8) Platelet Count 183 K/UL (150-450) Mean Platelet Volume 8.4 FL (6.5-10.1) Neutrophils (%) (Auto) 60.3 % (45.0-75.0) Lymphocytes (%) (Auto) 28.7 % (20.0-45.0) Monocytes (%) (Auto) 8.3 % (1.0-10.0) Eosinophils (%) (Auto) 0.5 % (0.0-3.0) Basophils (%) (Auto) 2.1 % (0.0-2.0) H Prothrombin Time 10.1 SEC (9.30-11.50) Prothromb Time International Ratio 0.9 (0.9-1.1) Activated Partial Thromboplast Time 19 SEC (23-33) L Sodium Level 140 MMOL/L (136-145) Potassium Level 4.2 MMOL/L (3.5-5.1) Chloride Level 104 MMOL/L (98-107) Carbon Dioxide Level 32 MMOL/L (21-32) Anion Gap 4 mmol/L (5-15) L Blood Urea Nitrogen 36 mg/dL (7-18) H Creatinine 1.5 MG/DL (0.55-1.30) H Estimat Glomerular Filtration Rate 41.7 mL/min (>60) Glucose Level 130 MG/DL (74-106) H Calcium Level 9.7 MG/DL (8.5-10.1) Total Bilirubin 0.3 MG/DL (0.2-1.0) Aspartate Amino Transf (AST/SGOT) 22 U/L (15-37) Alanine Aminotransferase (ALT/SGPT) 20 U/L (12-78) Alkaline Phosphatase 82 U/L (46-116) Total Protein 8.2 G/DL (6.4-8.2) Albumin 3.7 G/DL (3.4-5.0) Globulin 4.5 g/dL Albumin/Globulin Ratio 0.8 (1.0-2.7) L Height (Feet): 5 Height (Inches): 3.00 Weight (Pounds): 118 Medications Current Medications Medications (Trade) Dose Ordered Sig/Harjit Route PRN Reason Start Time Stop Time Status Last Admin Dose Admin Acetaminophen (Tylenol) 650 mg Q4H PRN ORAL fever 05/19/19 13:15 06/18/19 13:14 Albuterol/ Ipratropium (Albuterol/ Ipratropium) 3 ml Q4H PRN HHN Shortness of Breath 05/19/19 13:15 05/24/19 13:14 Aspirin (ASA) 81 mg DAILY ORAL 05/20/19 09:00 06/19/19 08:59 Clonidine HCl (Catapres Tab) 0.1 mg Q4H PRN ORAL For High Blood Pressure 05/19/19 13:15 06/18/19 13:14 Dextrose (Dextrose 50%) 25 ml Q30M PRN IV Hypoglycemia 05/19/19 13:15 06/18/19 13:14 Dextrose (Dextrose 50%) 50 ml Q30M PRN IV Hypoglycemia 05/19/19 13:15 06/18/19 13:14 Heparin Sodium (Porcine) (Heparin 5000 units/ml) 5,000 units EVERY 12 HOURS SUBQ 05/19/19 21:00 06/18/19 20:59 Insulin Aspart (NovoLOG) BEFORE MEALS AND HS SUBQ 05/19/19 16:30 06/18/19 16:29 Lorazepam (Ativan 2mg/ml 1ml) 0.5 mg Q4H PRN IV For Anxiety 05/19/19 13:15 05/26/19 13:14 Nateglinide (Starlix) 120 mg THREE TIMES A DAY ORAL 05/19/19 18:00 06/18/19 17:59 Nitroglycerin (Ntg) 0.4 mg Q5M X 3 DOSES PRN SL Prn Chest Pain 05/19/19 13:15 06/18/19 13:14 Ondansetron HCl (Zofran) 4 mg Q6H PRN IVP Nausea & Vomiting 05/19/19 13:15 06/18/19 13:14 Polyethylene Glycol (Miralax) 17 gm HSPRN PRN ORAL Constipation 05/19/19 13:15 06/18/19 13:14 Sitagliptin Phosphate (Januvia) 100 mg DAILY ORAL 05/20/19 09:00 06/19/19 08:59 Temazepam (Restoril) 15 mg HSPRN PRN ORAL Insomnia 05/19/19 13:15 05/26/19 13:14 Assessment/Plan Problem List: (1) ATN (acute tubular necrosis) ICD Codes: N17.0 - Acute kidney failure with tubular necrosis SNOMED: 30055364 (2) Impaired mobility and ADLs ICD Codes: Z74.09 - Other reduced mobility SNOMED: 205726331, 04889707, 752425601 (3) CVA (cerebrovascular accident) ICD Codes: I63.9 - Cerebral infarction, unspecified SNOMED: 203447252, 27098951, 368826997 (4) Failure to thrive SNOMED: 25061791, 76738790, 326843712 (5) CVA (cerebral vascular accident) ICD Codes: I63.9 - Cerebral infarction, unspecified SNOMED: 389266526 (6) Diabetes ICD Codes: E11.9 - Type 2 diabetes mellitus without complications SNOMED: 01318467 (7) Cachexia ICD Codes: R64 - Cachexia SNOMED: 542035666 Assessment/Plan: pt./ot renal evaluation neurology to see sliding scale diabetic diet Vidal Diaz MD May 19, 2019 13:24
[2019-05-19 13:29] LABS: APPEARANCE,URINE CLEAR; BILIRUBIN, URINE NEGATIVE (NEGATIVE); COLOR,URINE PALE YELLOW; GLUCOSE, URINE (UA) NEGATIVE (NEGATIVE); KETONES,URINE NEGATIVE (NEGATIVE); LEUKOCYTE ESTERASE ,URINE NEGATIVE (NEGATIVE); NITRITE,URINE NEGATIVE (NEGATIVE); PH,URINE 7 (4.5-8.0); PROTEIN,URINE 1+ (NEGATIVE); UROBILINOGEN,URINE NORMAL MG/DL (0.0-1.0)
[2019-05-19 14:00] VITALS: BP 149/74
--- NOTE | 2019-05-19 14:00 | NUR ---
NURSE NOTES: Patient arrived to unit via wheelchair, accompanied by preschool special education teacher and patient's daughter Vanessa. Patient's daughter states patient was brought in due to worsening dementia. Patient is awake and oriented x2, no acute distress noted, VS stable. Patient is reporting no pain. Patient is ambulatory with steady gait, no physical deficits noted from CVA history. History provided by patient and her daughter. LAC IV site intact. Patient oriented to room. Patient reports no difficulty with swallowing. Fall precautions implemented. Side rails upx3, bed low and locked, call light in reach. Will continue to monitor.
[2019-05-19 14:13] LABS: CREATINE KINASE 117 U/L (26-308)
[2019-05-19] MEDS ORDERED: LISINOPRIL5 MG ORAL (14:22)
[2019-05-19] MEDS ORDERED: NORVASC2.5 MG ORAL (14:22)
[2019-05-19] MEDS ORDERED: GLIPIZIDE5 MG ORAL (14:22)
--- NOTE | 2019-05-19 15:25 | NUR ---
NURSE NOTES: Informed Dr. Diaz of patient's home medications amlodipine and lisinopril. Received order from MD to continue patient's amlodipine 2.5mg PO daily. Order entered.
[2019-05-19 16:00] VITALS: BP 159/74
[2019-05-19] MEDS: NovoLOG Insulin Flexpen SUBQ SCH ×2 (16:46→21:00)
[2019-05-19 16:49] LABS: APPEARANCE,URINE CLEAR; BILIRUBIN, URINE NEGATIVE (NEGATIVE); COLOR,URINE PALE YELLOW; GLUCOSE, URINE (UA) NEGATIVE (NEGATIVE); KETONES,URINE NEGATIVE (NEGATIVE); LEUKOCYTE ESTERASE ,URINE NEGATIVE (NEGATIVE); NITRITE,URINE NEGATIVE (NEGATIVE); PH,URINE 7 (4.5-8.0); PROTEIN,URINE NEGATIVE (NEGATIVE); UROBILINOGEN,URINE NORMAL MG/DL (0.0-1.0)
--- NOTE | 2019-05-19 16:57 | Diagnostic Imaging Report ---
Indication: Abnormal renal function tests Technique: Grayscale and duplex images of the kidneys, retroperitoneum, and bladder were obtained. Comparison: 12/07/2014 Findings: Right kidney measures 10 cm in length. Left kidney measures 11.6 cm in length. Right kidney demonstrates slightly increased echogenicity. There is mild fullness of the left renal collecting system and mild proximal left hydroureter. This was not evident previously Cysts are seen on the right kidney. Normal inferior vena cava. Bladder is normal. . Previously demonstrated urinary bladder trabeculations are not appreciated currently. Bilateral urinary jets are noted There is incidental finding of gallstones Impression: Mild left renal collecting system fullness and mild proximal left hydroureter. Significance uncertain, downstream obstruction possible. Note however that presence of a left ureteral jet makes this less likely but not completely excludable Mild increased right renal echogenicity, could indicate medical renal disease Incidental finding right renal cysts Cholelithiasis.
--- NOTE | 2019-05-19 18:43 | Cardiology Progress Note ---
Assessment/Plan Assessment/Plan [id number] Objective Last 24 Hour Vital Signs Date Time Temp Pulse Resp B/P (MAP) Pulse Ox O2 Delivery O2 Flow Rate FiO2 05/19/19 16:00 98.9 79 16 159/74 (102) 97 05/19/19 14:00 Room Air 05/19/19 14:00 97.6 74 16 149/74 (99) 99 05/19/19 13:24 98.3 75 17 142/80 100 Room Air 05/19/19 11:43 98.2 74 16 146/78 99 Room Air 05/19/19 11:43 74 16 Room Air 05/19/19 11:21 98.1 77 18 151/76 (101) 98 Room Air Laboratory Tests Test 05/19/19 11:54 05/19/19 11:55 05/19/19 16:00 Urine Color Pale yellow Pale yellow Urine Appearance Clear Clear Urine pH 7 (4.5-8.0) 7 (4.5-8.0) Urine Specific [place] 1.005 (1.005-1.035) 1.005 (1.005-1.035) Urine Protein 1+ (NEGATIVE) H Negative (NEGATIVE) Urine Glucose (UA) Negative (NEGATIVE) Negative (NEGATIVE) Urine Ketones Negative (NEGATIVE) Negative (NEGATIVE) Urine Blood Negative (NEGATIVE) Negative (NEGATIVE) Urine Nitrite Negative (NEGATIVE) Negative (NEGATIVE) Urine Bilirubin Negative (NEGATIVE) Negative (NEGATIVE) Urine Urobilinogen Normal MG/DL (0.0-1.0) Normal MG/DL (0.0-1.0) Urine Leukocyte Esterase Negative (NEGATIVE) Negative (NEGATIVE) Urine RBC 0 /HPF (0 - 2) 0 /HPF (0 - 2) Urine WBC 0 /HPF (0 - 2) 0 /HPF (0 - 2) Urine Squamous Epithelial Cells Occasional /LPF None /LPF (NONE/OCC) Urine Bacteria None /HPF (NONE) None /HPF (NONE) White Blood Count 5.0 K/UL (4.8-10.8) Red Blood Count 4.15 M/UL (4.20-5.40) L Hemoglobin 12.0 G/DL (12.0-16.0) Hematocrit 35.5 % (37.0-47.0) L Mean Corpuscular Volume 85 FL (80-99) Mean Corpuscular Hemoglobin 28.9 PG (27.0-31.0) Mean Corpuscular Hemoglobin Concent 33.8 G/DL (32.0-36.0) Red Cell Distribution Width 13.4 % (11.6-14.8) Platelet Count 183 K/UL (150-450) Mean Platelet Volume 8.4 FL (6.5-10.1) Neutrophils (%) (Auto) 60.3 % (45.0-75.0) Lymphocytes (%) (Auto) 28.7 % (20.0-45.0) Monocytes (%) (Auto) 8.3 % (1.0-10.0) Eosinophils (%) (Auto) 0.5 % (0.0-3.0) Basophils (%) (Auto) 2.1 % (0.0-2.0) H Prothrombin Time 10.1 SEC (9.30-11.50) Prothromb Time International Ratio 0.9 (0.9-1.1) Activated Partial Thromboplast Time 19 SEC (23-33) L Sodium Level 140 MMOL/L (136-145) Potassium Level 4.2 MMOL/L (3.5-5.1) Chloride Level 104 MMOL/L (98-107) Carbon Dioxide Level 32 MMOL/L (21-32) Anion Gap 4 mmol/L (5-15) L Blood Urea Nitrogen 36 mg/dL (7-18) H Creatinine 1.5 MG/DL (0.55-1.30) H Estimat Glomerular Filtration Rate 41.7 mL/min (>60) Glucose Level 130 MG/DL (74-106) H Uric Acid 6.0 MG/DL (2.6-7.2) Calcium Level 9.7 MG/DL (8.5-10.1) Total Bilirubin 0.3 MG/DL (0.2-1.0) Aspartate Amino Transf (AST/SGOT) 22 U/L (15-37) Alanine Aminotransferase (ALT/SGPT) 20 U/L (12-78) Alkaline Phosphatase 82 U/L (46-116) Total Creatine Kinase 117 U/L (26-308) Total Protein 8.2 G/DL (6.4-8.2) Albumin 3.7 G/DL (3.4-5.0) Globulin 4.5 g/dL Albumin/Globulin Ratio 0.8 (1.0-2.7) L Urine Eosinophils None seen (NONE SEEN) Urine Osmolality 235 mOsm/kg (429-449) L Urine Random Creatinine Pending Urine Random Microalbumin Pending Urine Random Sodium 69 mmol/L (20-110) Urine Microalbumin/Creatinine Ratio Pending Microbiology Date/Time Source Procedure Growth Status 05/19/19 13:30 Rectum Received Nir Dewitt MD May 19, 2019 18:43
--- NOTE | 2019-05-19 19:30 | NUR ---
HAND-OFF: Report given to Radha AYALA. Patient is in stable condition.
[2019-05-19 20:00] VITALS: BP 153/68
--- NOTE | 2019-05-19 20:00 | Consultation ---
DATE OF CONSULTATION: 05/19/2019 CARDIOLOGY CONSULTATION CONSULTING PHYSICIAN: Nir Dewitt M.D. REFERRING PHYSICIAN: Vidal Diaz M.D. REASON FOR REFERRAL: History of hypertension. HISTORY OF PRESENT ILLNESS: This is an elderly female, who is known to me from prior evaluation. The patient was last seen back in October of 2018 she never followed up with me as outpatient. Nevertheless, she apparently had a stroke as I understand talking with the daughter who lives in [place]. She was hospitalized and treated at [facility] in [place] and was subsequently discharged home. At home, her daughter found that she is not able to take care of herself . Her memory is deteriorated. She is not able to use a phone and she is not able to put on her own clothing according to her daughter, and so the patient was brought to the emergency room, noted to be elevated blood pressure. This consultation is requested. The patient denies any chest pain or pressure. No shortness of breath. No PND. No orthopnea. No palpitations. No dizziness or lightheadedness. PAST MEDICAL HISTORY: Positive for history of diabetes mellitus, high blood pressure, and cervical cancer. There is a history of tuberculosis, she was treated as a child. She has rheumatoid arthritis and chronic renal insufficiency. She has had some atypical chest pains, which she was ruled out during last hospitalization here. ALLERGIES: She is allergic to sulfa. SOCIAL HISTORY: She does not smoke. Never did drinking. She lives at home although at the present time she is with some family members that are not around her. Her daughter is actually visiting from [place]. REVIEW OF SYSTEMS: GASTROINTESTINAL: Negative. GENITOURINARY: Negative. PULMONARY: She does have a cough. CONSTITUTIONAL: Negative. NEUROLOGIC: She is not able to provide any meaningful information to extended degree. PHYSICAL EXAMINATION: GENERAL: Shows to be elderly female, in no respiratory distress. HEENT: Unremarkable. NECK: Supple. No jugular venous distention. No abdominojugular reflux noted. LUNGS: Clear to auscultation and percussion. CARDIAC: S1 is normal. S2 is normal. Regular rate and rhythm. No heaves, thrills, or gallops noted. ABDOMEN: Soft, nontender. Positive bowel sounds. EXTREMITIES: There is no clubbing, cyanosis, nor is there any edema. NEUROLOGIC: She seems to be moving all four extremities. LABORATORY VALUES: Obtained. White count of 5, hemoglobin 12, and platelet count 183. Sodium 140, potassium 4.2, chloride 104, bicarb 32, BUN 36, creatinine 1.5, glucose of 130. Uric acid of 6. Calcium is 9.7. CK of 150. Liver function tests are normal. Her urinalysis is fairly unremarkable. She has had a CT scan of her head that shows chronic age-related changes including old bilateral basal ganglia lacunar infarctions. Ultrasound of the kidneys has been performed that shows mild left renal collecting system fullness, mild proximal left hydroureter, significance uncertain. An echocardiogram previously has been performed in October 2013 showed normal left ventricular systolic function. ASSESSMENT AND PLAN: 1. History of stroke. 2. History of hypertension. 3. History of hyperlipidemia. 4. History of diabetes mellitus. Dr. Diaz, this patient was seen in cardiac consultation. The patient is not able to provide a full history. Medications for blood pressure will be resumed including amlodipine and Norvasc. Further recommendation provided as become necessary. Nir Dewitt M.D. DR: IFEANYI JOB#: [id number] CC:
[2019-05-19] MEDS: Heparin 5000 units/ml inj SUBQ SCH (21:38)
[2019-05-20] VITALS: BP 128/50
[2019-05-20 04:00] VITALS: BP 141/70
[2019-05-20] MEDS: NovoLOG Insulin Flexpen SUBQ SCH ×4 (06:17→20:54)
[2019-05-20 06:29] LABS: BASOPHILS % (AUTO) 1.1 % (0.0-2.0); EOSINOPHILS % (AUTO) 0.7 % (0.0-3.0); HEMATOCRIT 33.9 % (37.0-47.0); LYMPHOCYTES % (AUTO) 30.1 % (20.0-45.0); MEAN CORPUSCULAR VOLUME 89 FL (80-99); MONOCYTES % (AUTO) 12.2 % (1.0-10.0); NEUTROPHILS % (AUTO) 55.8 % (45.0-75.0); PLATELET COUNT 183 K/UL (150-450); RED BLOOD COUNT 3.82 M/UL (4.20-5.40); RED CELL DISTRIBUTION WIDTH 11.2 % (11.6-14.8); WHITE BLOOD COUNT 5.1 K/UL (4.8-10.8)
[2019-05-20 06:57] LABS: ALANINE AMINOTRANSFERASE 17 U/L (12-78); ALBUMIN 3.2 G/DL (3.4-5.0); ALBUMIN/GLOBULIN RATIO 0.8 (1.0-2.7); ALKALINE PHOSPHATASE 66 U/L (46-116); ANION GAP 4 mmol/L (5-15); ASPARTATE AMINO TRANSFERASE 19 U/L (15-37); BILIRUBIN,TOTAL 0.3 MG/DL (0.2-1.0); BLOOD UREA NITROGEN 31 mg/dL (7-18); CALCIUM 9.2 MG/DL (8.5-10.1); CARBON DIOXIDE 29 MMOL/L (21-32); CHLORIDE 107 MMOL/L (98-107); CHOLESTEROL 209 MG/DL (< 200); CREATININE 1.4 MG/DL (0.55-1.30); HDL CHOLESTEROL 83 MG/DL (40-60); POTASSIUM 3.9 MMOL/L (3.5-5.1); SODIUM 140 MMOL/L (136-145); TRIGLYCERIDES 31 MG/DL (30-150)
--- NOTE | 2019-05-20 07:50 | NUR ---
NURSE NOTES: Pt was sitting up eating, abruptly stopped took her dentures, out and began brushing her teeth. Pt qued on breakfast. 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 " I had enough of that "
[2019-05-20 08:00] VITALS: BP 121/62
--- NOTE | 2019-05-20 08:12 | NUR ---
NURSE NOTES: Call light in reach anticipated needs may require to be met 2 to baseline.
--- NOTE | 2019-05-20 08:40 | NUR ---
PT EVALUATION NOTE Patient seen for initial evaluation, see complete evaluation for details. Patient presents with generalized weakness and impaired balance which affects patient's ability to perform mobility tasks. Patient requires SBA for transfers and ambulation with a FWW due to impaired balance and is a fall risk. Patient will benefit from skilled inpatient PT intervention to address strength, balance, safety and functional mobility. Recommend discharge to SNF for further rehab once medically cleared by the MD as patient was living alone and is a fall risk. Recommend FWW for ambulation. Addendum: 05/20/19 at 1245 by DANIEL MCCLELLAN PT Amended: Links added.
[2019-05-20] MEDS: Aspirin Baby 81mg ORAL SCH (10:25)
[2019-05-20] MEDS: Heparin 5000 units/ml inj SUBQ SCH ×2 (10:28→20:57)
--- NOTE | 2019-05-20 11:18 | Pulmonology Progress Note ---
Assessment/Plan Problems: (1) ATN (acute tubular necrosis) (2) Impaired mobility and ADLs (3) Dementia (4) Diabetes (5) CVA (cerebral vascular accident) (6) Failure to thrive Assessment/Plan add Namenda sliding scale diabetic diet pt/ot might need placement' watch BP Subjective ROS Limited/Unobtainable: No Constitutional: Reports: no symptoms HEENT: Repors: no symptoms Respiratory: Reports: no symptoms Allergies: Coded Allergies: SULFA (SULFONAMIDE ANTIBIOTICS) (Verified Allergy, Intermediate, Hives, ) CODEINE (Verified Adverse Reaction, Mild, vomiting, 08/12/13) Objective Last 24 Hour Vital Signs Date Time Temp Pulse Resp B/P (MAP) Pulse Ox O2 Delivery O2 Flow Rate FiO2 05/20/19 10:25 67 121/62 05/20/19 08:00 98.4 67 18 121/62 (81) 05/20/19 07:40 76 18 96 Room Air 21 05/20/19 04:00 98.6 75 18 141/70 (93) 98 05/20/19 00:00 98.3 62 18 128/50 (76) 96 05/19/19 21:33 72 18 97 Room Air 21 05/19/19 21:30 70 153/68 05/19/19 21:00 Room Air 05/19/19 20:00 97.8 70 18 153/68 (96) 99 05/19/19 16:00 98.9 79 16 159/74 (102) 97 05/19/19 14:00 Room Air 05/19/19 14:00 97.6 74 16 149/74 (99) 99 05/19/19 13:24 98.3 75 17 142/80 100 Room Air 05/19/19 11:43 98.2 74 16 146/78 99 Room Air 05/19/19 11:43 74 16 Room Air 05/19/19 11:21 98.1 77 18 151/76 (101) 98 Room Air Intake and Output 05/19/19 05/20/19 18:59 06:59 Intake Total 400 ml Balance 400 ml Intake Oral 400 ml # Voids 4 2 General Appearance: WD/WN HEENT: normocephalic, atraumatic Respiratory/Chest: chest wall non-tender, lungs clear Breasts: no masses Cardiovascular: normal peripheral pulses Abdomen: normal bowel sounds, soft, non tender Genitourinary: normal external genitalia Extremities: no cyanosis Skin: no rash 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5L , Mean Corpuscular Volume 85, Mean Corpuscular Hemoglobin 28.9, Mean Corpuscular Hemoglobin Concent 33.8, Red Cell Distribution Width 13.4, Platelet Count 183, Mean Platelet Volume 8.4, Neutrophils (%) (Auto) 60.3, Lymphocytes (% ) (Auto) 28.7, Monocytes (%) (Auto) 8.3, Eosinophils (%) (Auto) 0.5, Basophils ( %) (Auto) 2.1H, Prothrombin Time 10.1, Prothromb Time International Ratio 0.9, Activated Partial Thromboplast Time 19L, Sodium Level 140, Potassium Level 4.2, Chloride Level 104, Carbon Dioxide Level 32, Anion Gap 4L, Blood Urea Nitrogen 36H, Creatinine 1.5H, Estimat Glomerular Filtration Rate 41.7, Glucose Level 130H, Uric Acid 6.0, Calcium Level 9.7, Total Bilirubin 0.3, Aspartate Amino Transf (AST/SGOT) 22, Alanine Aminotransferase (ALT/SGPT) 20, Alkaline Phosphatase 82, Total Creatine Kinase 117, Total Protein 8.2, Albumin 3.7, Globulin 4.5, Albumin/Globulin Ratio 0.8L 05/19/19 16:00: Urine Color Pale yellow, Urine Appearance Clear, Urine pH 7, Urine Specific [place] 1.005, Urine Protein Negative, Urine Glucose (UA) Negative, Urine Ketones Negative, Urine Blood Negative, Urine Nitrite Negative, Urine Bilirubin Negative, Urine Urobilinogen Normal, Urine Leukocyte Esterase Negative, Urine RBC 0, Urine WBC 0, Urine Squamous Epithelial Cells None, Urine Bacteria None, Urine Eosinophils None seen, Urine Osmolality 235L, Urine Random Creatinine [ Pending], Urine Random Microalbumin [Pending], Urine Random Sodium 69, Urine Microalbumin/Creatinine Ratio [Pending] 05/20/19 05:10: White Blood Count 5.1, Red Blood Count 3.82L, Hemoglobin 11.0L, Hematocrit 33.9L , Mean Corpuscular Volume 89, Mean Corpuscular Hemoglobin 28.7, Mean Corpuscular Hemoglobin Concent 32.3, Red Cell Distribution Width 11.2L, Platelet Count 183, Mean Platelet Volume 9.7, Neutrophils (%) (Auto) 55.8, Lymphocytes (%) (Auto) 30.1, Monocytes (%) (Auto) 12.2H, Eosinophils (%) (Auto) 0.7, Basophils (%) (Auto) 1.1, Prothrombin Time 10.3, Prothromb Time International Ratio 1.0, Activated Partial Thromboplast Time 26, Sodium Level 140, Potassium Level 3.9, Chloride Level 107, Carbon Dioxide Level 29, Anion Gap 4L, Blood Urea Nitrogen 31H, Creatinine 1.4H, Estimat Glomerular Filtration Rate 45.1, Glucose Level 101, Calcium Level 9.2, Total Bilirubin 0.3, Aspartate Amino Transf (AST/SGOT) 19, Alanine Aminotransferase (ALT/SGPT) 17, Alkaline Phosphatase 66, Total Protein 7.1, Albumin 3.2L, Globulin 3.9, Albumin/Globulin Ratio 0.8L, Triglycerides Level 31, Cholesterol Level 209H, LDL Cholesterol 119H , HDL Cholesterol 83H, Cholesterol/HDL Ratio 2.5L, Thyroid Stimulating Hormone ( TSH) 3.093 Current Medications Medications (Trade) Dose Ordered Sig/Harjit Route PRN Reason Start Time Stop Time Status Last Admin Dose Admin Acetaminophen (Tylenol) 650 mg Q4H PRN ORAL fever 05/19/19 13:15 06/18/19 13:14 Albuterol/ Ipratropium (Albuterol/ Ipratropium) 3 ml Q4H PRN HHN Shortness of Breath 05/19/19 13:15 05/24/19 13:14 Amlodipine Besylate (Norvasc) 2.5 mg BID ORAL 05/19/19 20:00 06/18/19 19:59 05/20/19 10:25 Aspirin (ASA) 81 mg DAILY ORAL 05/20/19 09:00 06/19/19 08:59 05/20/19 10:25 Clonidine HCl (Catapres Tab) 0.1 mg Q4H PRN ORAL For High Blood Pressure 05/19/19 13:15 06/18/19 13:14 Dextrose (Dextrose 50%) 25 ml Q30M PRN IV Hypoglycemia 05/19/19 13:15 06/18/19 13:14 Dextrose (Dextrose 50%) 50 ml Q30M PRN IV Hypoglycemia 05/19/19 13:15 06/18/19 13:14 Heparin Sodium (Porcine) (Heparin 5000 units/ml) 5,000 units EVERY 12 HOURS SUBQ 05/19/19 21:00 06/18/19 20:59 05/20/19 10:28 Insulin Aspart (NovoLOG) BEFORE MEALS AND HS SUBQ 05/19/19 16:30 06/18/19 16:29 05/19/19 16:46 Lorazepam (Ativan 2mg/ml 1ml) 0.5 mg Q4H PRN IV For Anxiety 05/19/19 13:15 05/26/19 13:14 Nateglinide (Starlix) 120 mg THREE TIMES A DAY ORAL 05/19/19 18:00 06/18/19 17:59 05/20/19 10:25 Nitroglycerin (Ntg) 0.4 mg Q5M X 3 DOSES PRN SL Prn Chest Pain 05/19/19 13:15 06/18/19 13:14 Ondansetron HCl (Zofran) 4 mg Q6H PRN IVP Nausea & Vomiting 05/19/19 13:15 06/18/19 13:14 Polyethylene Glycol (Miralax) 17 gm HSPRN PRN ORAL Constipation 05/19/19 13:15 06/18/19 13:14 Sitagliptin Phosphate (Januvia) 100 mg DAILY ORAL 05/20/19 09:00 06/19/19 08:59 05/20/19 10:25 Temazepam (Restoril) 15 mg HSPRN PRN ORAL Insomnia 05/19/19 13:15 05/26/19 13:14 Vidal Diaz MD May 20, 2019 11:18
[2019-05-20 12:00] VITALS: BP 153/68
--- NOTE | 2019-05-20 13:30 | Cardiology Report ---
APPROVED REPORT EXAM: Two-dimensional and M-mode echocardiogram with Doppler and color Doppler. INDICATION Left Ventricular Function M-Mode DIMENSIONS IVSd1.4 (0.7-1.1cm)Left Atrium (MM)2.8 (1.6-4.0cm) LVDd3.4 (3.5-5.6cm)Aortic Root2.5 (2.0-3.7cm) PWd1.0 (0.7-1.1cm)Aortic Cusp Exc.1.5 (1.5-2.0cm) LVDs2.0 (2.5-4.0cm) PWs1.2 cm Normal left ventricular chamber size, systolic function and wall motion. Left ventricular ejection fraction estimated to be 65%. Moderate to severe left ventricular hypertrophy. Anterior Echo-free space, may be due to pericardial fat or effusion. All other cardiac chamber sizes are within normal limits. Focal aortic valve sclerosis with adequate cusp excursion. Thickened mitral valve leaflets with normal excursion. Mitral annulus and aortic root calcification. Normal pulmonic valve structure. Normal tricuspid valve structure. IVC at normal size with physiologic collapse. A color flow and spectral Doppler study was performed and revealed: Trace aortic insufficiency. Trace mitral regurgitation. Mitral diastolic velocities suggest reduced left ventricular relaxation c/w mild LV diastolic dysfunction (Grade I ). Trace tricuspid regurgitation. Tricuspid systolic velocities suggests peak right ventricular systolic pressure of 11 mmHg. Pulmonic regurgitation present.
--- NOTE | 2019-05-20 13:54 | NUR ---
SPEECH PATHOLOGY:BEDSIDE SWALLOW EVALUATION COMPLETED POST CHART REVIEW AND INTERVIEW WITH JAMIE MESA. PER POLST: FULL TREATMENT DYSPHAGIA RISK FACTORS FOR THIS 68 Y.O. FEMALE: DECREASED MENTATION, HX OF PRIOR CVA, UNPRODUCTIVE COUGH, INITIAL IMPRESSION: MODERATE COGNITIVE IMPAIRMENT PER COGNITIVE SCREEN AT RISK FOR LIVING INDEPENDENTLY UNDETERMINED EXTENT OF OROPHARYNGEAL DYSPHAGIA PRESENTS SAFE FOR CURRENT DIET WITH SUPERVISION/SET UP ASSIST APPEARED TO GROSSLY TOLERATE THIN LIQUIDS PRESENTED IN 5 ML AMOUNTS VIA SPOON NO OVERT S/S OF ASPIRATION DURING THIS ASSESSMENT. RECOMMENDATIONS: VIDEO SWALLOW STUDY TO FURTHWER ASSESS SWALLOW EFFICACY AND RULE OUT SILENT ASPIRATION. CONTINUE CURRENT DIET WITH SUPERVISION/SET UP ASSIST PILLS TOLERATED SWALLOW TX AND MANAGEMENT COGNITIVE/LINGUISTIC ASSESSMENT WHICH WILL VERIFY NEED FOR SUPPORTED LIVING ENVIRONMENT.
[2019-05-20 16:00] VITALS: BP 137/87
--- NOTE | 2019-05-20 16:01 | NUR ---
CASE MANAGEMENT: INITIAL REVIEW 68 YO F PRESENTED TO OUR ED FROM HOME CC: WORSENING DEMENTIA PMHx: HTN. DM. CVA/TIA. SI:CVA T 98.1 HR 77 RR 18 B/P 151/76 SATS 98% ON RA BUN 36 CR 1.5 GLU 130 IS: HEAD CT (-) US RENAL Impression: Mild left renal collecting system fullness and mild proximal left hydroureter. Significance uncertain, downstream obstruction possible. Note however that presence of a left ureteral jet makes this less likely but not completely excludable. Mild increased right renal echogenicity, could indicate medical renal disease Incidental finding right renal cysts. Cholelithiasis. 2D ECHO EF 65% PATIENT ADMITTED TO MED/SURG 05/19/2019 @ 1223 DCP: PATIENT TO BE DISCHARGED TO SNF ONCE MEDICALLY CLEARED. PLAN OF CARE: CARDIO EVAL Addendum: 05/20/19 at 1636 by Kinza Brooks CM INTERQUAL MET
--- NOTE | 2019-05-20 18:00 | NUR ---
NURSE NOTES: Pt daughter has been at bedside. Per pt has not had a bm in 5 days. Abdomen soft non distended, bowel sounds active, breathe free from odor, Prune juice provided. requires monitoring for safety, due to unstable gait. Blood sugar in normal range 70 for dinner time, no coverage required. Call light is in reach , due to intermittent confusion, all anticipated needs require to be met.
--- NOTE | 2019-05-20 18:41 | Cardiology Progress Note ---
Assessment/Plan Assessment/Plan 1. History of stroke. 2. History of hypertension. 3. History of hyperlipidemia. 4. History of diabetes mellitus doign well bp seem fine labs ntoed statin food too salty will check orthostatic vitals Subjective Cardiovascular: Denies: chest pain Respiratory: Denies: shortness of breath Gastrointestinal/Abdominal: Denies: abdominal pain Genitourinary: Denies: burning Objective Last 24 Hour Vital Signs Date Time Temp Pulse Resp B/P (MAP) Pulse Ox O2 Delivery O2 Flow Rate FiO2 05/20/19 17:55 72 120/62 05/20/19 16:00 97.8 72 137/87 (104) 05/20/19 12:00 97.8 70 18 153/68 (96) 05/20/19 10:25 67 121/62 05/20/19 09:00 Room Air 05/20/19 08:00 98.4 67 18 121/62 (81) 05/20/19 07:40 76 18 96 Room Air 21 05/20/19 04:00 98.6 75 18 141/70 (93) 98 05/20/19 00:00 98.3 62 18 128/50 (76) 96 05/19/19 21:33 72 18 97 Room Air 21 05/19/19 21:30 70 153/68 05/19/19 21:00 Room Air 05/19/19 20:00 97.8 70 18 153/68 (96) 99 General Appearance: alert Neck: supple Cardiovascular: normal rate Respiratory/Chest: lungs clear Abdomen: normal bowel sounds, non tender, soft Extremities: no swelling Intake and Output 05/19/19 05/20/19 19:00 07:00 Intake Total 400 ml Balance 400 ml Intake Oral 400 ml # Voids 4 2 Laboratory Tests Test 05/20/19 05:10 White Blood Count 5.1 K/UL (4.8-10.8) Red Blood Count 3.82 M/UL (4.20-5.40) L Hemoglobin 11.0 G/DL (12.0-16.0) L Hematocrit 33.9 % (37.0-47.0) L Mean Corpuscular Volume 89 FL (80-99) Mean Corpuscular Hemoglobin 28.7 PG (27.0-31.0) Mean Corpuscular Hemoglobin Concent 32.3 G/DL (32.0-36.0) Red Cell Distribution Width 11.2 % (11.6-14.8) L Platelet Count 183 K/UL (150-450) Mean Platelet Volume 9.7 FL (6.5-10.1) Neutrophils (%) (Auto) 55.8 % (45.0-75.0) Lymphocytes (%) (Auto) 30.1 % (20.0-45.0) Monocytes (%) (Auto) 12.2 % (1.0-10.0) H Eosinophils (%) (Auto) 0.7 % (0.0-3.0) Basophils (%) (Auto) 1.1 % (0.0-2.0) Prothrombin Time 10.3 SEC (9.30-11.50) Prothromb Time International Ratio 1.0 (0.9-1.1) Activated Partial Thromboplast Time 26 SEC (23-33) Sodium Level 140 MMOL/L (136-145) Potassium Level 3.9 MMOL/L (3.5-5.1) Chloride Level 107 MMOL/L (98-107) Carbon Dioxide Level 29 MMOL/L (21-32) Anion Gap 4 mmol/L (5-15) L Blood Urea Nitrogen 31 mg/dL (7-18) H Creatinine 1.4 MG/DL (0.55-1.30) H Estimat Glomerular Filtration Rate 45.1 mL/min (>60) Glucose Level 101 MG/DL (74-106) Calcium Level 9.2 MG/DL (8.5-10.1) Total Bilirubin 0.3 MG/DL (0.2-1.0) Aspartate Amino Transf (AST/SGOT) 19 U/L (15-37) Alanine Aminotransferase (ALT/SGPT) 17 U/L (12-78) Alkaline Phosphatase 66 U/L (46-116) Total Protein 7.1 G/DL (6.4-8.2) Albumin 3.2 G/DL (3.4-5.0) L Globulin 3.9 g/dL Albumin/Globulin Ratio 0.8 (1.0-2.7) L Triglycerides Level 31 MG/DL (30-150) Cholesterol Level 209 MG/DL (< 200) H LDL Cholesterol 119 mg/dL (<100) H HDL Cholesterol 83 MG/DL (40-60) H Cholesterol/HDL Ratio 2.5 (3.3-4.4) L Thyroid Stimulating Hormone (TSH) 3.093 uiU/mL (0.358-3.740) Microbiology Date/Time Source Procedure Growth Status 05/19/19 13:30 Rectum Received Nir Dewitt MD May 20, 2019 18:41
--- NOTE | 2019-05-20 19:31 | NUR ---
NURSE NOTES: Received report & pt from JAMIE العراقي. Pt lying in bed, a&ox3, in room air. No s/s of acute distress & no c/o pain at this time. IV site intact & S/L'd. Skin intact. Bed in lowest position, call light within reach. Will continue to monitor.
[2019-05-20 20:00] VITALS: BP 139/67
[2019-05-20] MEDS: Atorvastatin 20mg tab ORAL SCH (20:54)
[2019-05-21 00:47] VITALS: BP 124/55
[2019-05-21 03:53] VITALS: BP 126/59
[2019-05-21] MEDS: NovoLOG Insulin Flexpen SUBQ SCH ×4 (05:44→20:13)
--- NOTE | 2019-05-21 06:00 | NUR ---
NURSE NOTES: PATIENT ASLEEP, V/S STABLE, NO DISTRESS NOTED.
--- NOTE | 2019-05-21 07:18 | NUR ---
HAND-OFF: Report given to MARJAN Schultz RN.
--- NOTE | 2019-05-21 07:19 | NUR ---
NURSE NOTES: AWAKE/ALERT. . NO C/O PAIN, IN NO DISTRESS.
[2019-05-21 08:00] VITALS: BP 130/63
[2019-05-21] MEDS: Memantine 5 MG TAB ORAL SCH (08:27)
[2019-05-21] MEDS: Aspirin Baby 81mg ORAL SCH (08:27)
[2019-05-21] MEDS: Heparin 5000 units/ml inj SUBQ SCH ×2 (08:28→20:12)
--- NOTE | 2019-05-21 09:32 | NUR ---
NURSE NOTES: DR Maya MCCRAY CALLED RE ORTHOSTATIC BP WITH NEW ORDER.
--- NOTE | 2019-05-21 11:35 | NUR ---
NURSE NOTES: ACCUCHECK 65. OJ WITH SUGAR GIVEN . WILL RECHECK AND MONITER BLOOD SUGAR.
[2019-05-21 12:00] VITALS: BP 129/61
[2019-05-21 16:00] VITALS: BP 126/87
--- NOTE | 2019-05-21 17:15 | Cardiology Progress Note ---
Assessment/Plan Assessment/Plan stable from cardiac standpoint, will follow Subjective Subjective The patient is resting in bed, family present she feels better and her neurologic issues are improving Objective Last 24 Hour Vital Signs Date Time Temp Pulse Resp B/P (MAP) Pulse Ox O2 Delivery O2 Flow Rate FiO2 05/21/19 16:00 98.0 77 17 126/87 (100) 99 05/21/19 12:00 98.2 64 17 129/61 (83) 99 05/21/19 09:00 65 127 81 05/21/19 08:27 79 130/63 05/21/19 08:07 Room Air 05/21/19 08:00 98.0 79 16 130/63 (85) 98 05/21/19 07:00 71 20 99 Room Air 21 05/21/19 03:53 98.6 70 18 126/59 (81) 98 05/21/19 00:47 98.8 66 18 124/55 (78) 100 05/20/19 21:00 Room Air 05/20/19 20:46 72 18 95 Room Air 21 05/20/19 20:00 98.2 72 18 139/67 (91) 98 05/20/19 17:55 72 120/62 General Appearance: no apparent distress EENT: PERRL/EOMI Neck: no JVD Rhythm: NSR Cardiovascular: systolic murmur Respiratory/Chest: crackles/rales - few Abdomen: soft Extremities: no calf tenderness Intake and Output 05/20/19 05/21/19 18:59 06:59 Intake Total 480 ml 240 ml Balance 480 ml 240 ml Intake Oral 480 ml 240 ml # Voids 2 Microbiology Date/Time Source Procedure Growth Status 05/19/19 13:30 Nasal Nares MRSA Culture - Final NO METHICILLIN RESISTANT STAPH AUREUS... Complete 05/19/19 13:30 Rectum VRE Culture - Final NO VANCOMYCIN RESISTANT ENTEROCOCCUS ... Complete 05/19/19 13:30 Rectum - Final NO CARBAPENEM-RESISTANT ENTEROBACTERI... Complete Sidra Ramos MD May 21, 2019 17:15
--- NOTE | 2019-05-21 18:58 | NUR ---
NURSE NOTES: condition stable. in no apparent distress.
--- NOTE | 2019-05-21 18:58 | NUR ---
HAND-OFF: Report given to Maya SHAW LVN.
--- NOTE | 2019-05-21 18:58 | NUR ---
NURSE NOTES Patient received from Fanta John Patient A/A/OX4. Patient denies any pain at this time . no s/s of distress noted . LAC G # 20 NS @ 100CC/ HR infusing well. safety / fall precautions . Call light within reach . Bed in low position at all times . Will continue to monitor .
--- NOTE | 2019-05-21 19:29 | NUR ---
NURSE NOTES:Patient accidentally pull out her IV Line in LAC G#20 .Explained to patient She needs IV fluids and to insert a new IV line . Patient agreed . Will continue to monitor .
[2019-05-21 20:00] VITALS: BP 133/58
[2019-05-21] MEDS: Atorvastatin 20mg tab ORAL SCH (20:11)
--- NOTE | 2019-05-21 22:03 | Pulmonology Progress Note ---
Assessment/Plan Problems: (1) ATN (acute tubular necrosis) (2) Impaired mobility and ADLs (3) Dementia (4) Diabetes (5) CVA (cerebral vascular accident) (6) Failure to thrive Assessment/Plan \on Namenda sliding scale diabetic diet pt/ot might need placement' watch BP Subjective ROS Limited/Unobtainable: No Constitutional: Reports: no symptoms HEENT: Repors: no symptoms Respiratory: Reports: no symptoms Allergies: Coded Allergies: SULFA (SULFONAMIDE ANTIBIOTICS) (Verified Allergy, Intermediate, Hives, ) CODEINE (Verified Adverse Reaction, Mild, vomiting, 08/12/13) Objective Last 24 Hour Vital Signs Date Time Temp Pulse Resp B/P (MAP) Pulse Ox O2 Delivery O2 Flow Rate FiO2 05/21/19 20:00 75 70 70 05/21/19 20:00 98.7 75 18 133/58 (83) 99 05/21/19 17:32 77 126/87 05/21/19 16:00 98.0 77 17 126/87 (100) 99 05/21/19 12:00 98.2 64 17 129/61 (83) 99 05/21/19 09:00 65 127 81 05/21/19 08:27 79 130/63 05/21/19 08:07 Room Air 05/21/19 08:00 98.0 79 16 130/63 (85) 98 05/21/19 07:00 71 20 99 Room Air 21 05/21/19 03:53 98.6 70 18 126/59 (81) 98 05/21/19 00:47 98.8 66 18 124/55 (78) 100 Intake and Output 05/20/19 05/21/19 19:00 07:00 Intake Total 480 ml 240 ml Balance 480 ml 240 ml Intake Oral 480 ml 240 ml # Voids 2 Objective General Appearance: WD/WN HEENT: normocephalic, atraumatic Respiratory/Chest: chest wall non-tender, lungs clear Cardiovascular: normal peripheral pulses, normal rate Abdomen: normal bowel sounds, soft, non tender Genitourinary: normal external genitalia Extremities: no clubbing Skin: no rash, no ulcers Neurologic/Psychiatric: information resource consultant II-XII grossly normal Musculoskeletal: normal muscle bulk Microbiology Date/Time Source Procedure Growth Status 05/19/19 13:30 Nasal Nares MRSA Culture - Final NO METHICILLIN RESISTANT STAPH AUREUS... Complete 05/19/19 13:30 Rectum VRE Culture - Final NO VANCOMYCIN RESISTANT ENTEROCOCCUS ... Complete 05/19/19 13:30 Rectum - Final NO CARBAPENEM-RESISTANT ENTEROBACTERI... Complete Current Medications Medications (Trade) Dose Ordered Sig/Harjit Route PRN Reason Start Time Stop Time Status Last Admin Dose Admin Acetaminophen (Tylenol) 650 mg Q4H PRN ORAL fever 05/19/19 13:15 06/18/19 13:14 Albuterol/ Ipratropium (Albuterol/ Ipratropium) 3 ml Q4H PRN HHN Shortness of Breath 05/19/19 13:15 05/24/19 13:14 Amlodipine Besylate (Norvasc) 2.5 mg BID ORAL 05/19/19 20:00 06/18/19 19:59 05/21/19 17:32 Aspirin (ASA) 81 mg DAILY ORAL 05/20/19 09:00 06/19/19 08:59 05/21/19 08:27 Atorvastatin Calcium (Lipitor) 40 mg BEDTIME ORAL 05/20/19 21:00 06/19/19 20:59 05/21/19 20:11 Clonidine HCl (Catapres Tab) 0.1 mg Q4H PRN ORAL For High Blood Pressure 05/19/19 13:15 06/18/19 13:14 Dextrose (Dextrose 50%) 25 ml Q30M PRN IV Hypoglycemia 05/19/19 13:15 06/18/19 13:14 Dextrose (Dextrose 50%) 50 ml Q30M PRN IV Hypoglycemia 05/19/19 13:15 06/18/19 13:14 Heparin Sodium (Porcine) (Heparin 5000 units/ml) 5,000 units EVERY 12 HOURS SUBQ 05/19/19 21:00 06/18/19 20:59 05/21/19 20:12 Insulin Aspart (NovoLOG) BEFORE MEALS AND HS SUBQ 05/19/19 16:30 06/18/19 16:29 05/21/19 20:13 Lorazepam (Ativan 2mg/ml 1ml) 0.5 mg Q4H PRN IV For Anxiety 05/19/19 13:15 05/26/19 13:14 Memantine (Namenda) 5 mg DAILY ORAL 05/21/19 09:00 06/20/19 08:59 05/21/19 08:27 Nateglinide (Starlix) 120 mg THREE TIMES A DAY ORAL 05/19/19 18:00 06/18/19 17:59 05/21/19 17:32 Nitroglycerin (Ntg) 0.4 mg Q5M X 3 DOSES PRN SL Prn Chest Pain 05/19/19 13:15 06/18/19 13:14 Ondansetron HCl (Zofran) 4 mg Q6H PRN IVP Nausea & Vomiting 05/19/19 13:15 06/18/19 13:14 Polyethylene Glycol (Miralax) 17 gm HSPRN PRN ORAL Constipation 05/19/19 13:15 06/18/19 13:14 Sitagliptin Phosphate (Januvia) 100 mg DAILY ORAL 05/20/19 09:00 06/19/19 08:59 05/21/19 08:27 Temazepam (Restoril) 15 mg HSPRN PRN ORAL Insomnia 05/19/19 13:15 05/26/19 13:14 Vidal Diaz MD May 21, 2019 22:03
--- NOTE | 2019-05-21 22:20 | NUR ---
NURSE NOTES:New IV Line inserted on left forearm g#22 . Will continue to monitor .
[2019-05-22] VITALS (7 sets, daily range): BP systolic 124–142; BP diastolic 61–91
--- NOTE | 2019-05-22 03:12 | NUR ---
HAND-OFF: Report given to Christen John Addendum: 05/22/19 at 0316 by TITO SHAW LVN Patient in stable conditions.
[2019-05-22] MEDS: NovoLOG Insulin Flexpen SUBQ SCH ×4 (06:30→20:52)
--- NOTE | 2019-05-22 07:23 | NUR ---
HAND OFF Report given to Fanta. Pt is stable.
--- NOTE | 2019-05-22 07:26 | NUR ---
NURSE NOTES: AWAKE/ALERT.NO C/O PAIN. IN NO DISTRESS.
[2019-05-22] MEDS: Memantine 5 MG TAB ORAL SCH (08:37)
[2019-05-22] MEDS: Aspirin Baby 81mg ORAL SCH (08:37)
[2019-05-22] MEDS: Heparin 5000 units/ml inj SUBQ SCH ×2 (08:38→20:54)
--- NOTE | 2019-05-22 09:00 | NUR ---
NURSE NOTES: ambulated out in the kruse tolerated.
--- NOTE | 2019-05-22 09:59 | Cardiology Progress Note ---
Assessment/Plan Assessment/Plan stable from cardiac standpoint, will follow Subjective Subjective The patient is resting in bed, family present she feels better and her neurologic issues are improving Objective Last 24 Hour Vital Signs Date Time Temp Pulse Resp B/P (MAP) Pulse Ox O2 Delivery O2 Flow Rate FiO2 05/22/19 09:18 Room Air 05/22/19 09:00 77 79 83 05/22/19 08:37 82 126/69 05/22/19 08:00 97.3 82 17 124/69 (87) 99 05/22/19 07:45 78 15 97 Room Air 21 05/22/19 04:24 99.2 75 18 140/67 (91) 100 05/22/19 00:00 98.4 61 18 124/63 (83) 100 05/21/19 21:00 Room Air 05/21/19 20:00 75 70 70 05/21/19 20:00 98.7 75 18 133/58 (83) 99 05/21/19 19:30 66 20 98 Room Air 21 05/21/19 17:32 77 126/87 05/21/19 16:00 98.0 77 17 126/87 (100) 99 05/21/19 12:00 98.2 64 17 129/61 (83) 99 General Appearance: no apparent distress EENT: PERRL/EOMI Neck: non-tender Rhythm: NSR, SB Cardiovascular: normal rate Respiratory/Chest: lungs clear Abdomen: non tender Intake and Output 05/21/19 05/22/19 19:00 07:00 Intake Total 1420 ml 1680 ml Balance 1420 ml 1680 ml Intake Oral 520 ml 1580 ml IV Total 900 ml 100 ml # Voids 3 5 # Bowel Movements 1 Microbiology Date/Time Source Procedure Growth Status 05/19/19 13:30 Nasal Nares MRSA Culture - Final NO METHICILLIN RESISTANT STAPH AUREUS... Complete 05/19/19 13:30 Rectum VRE Culture - Final NO VANCOMYCIN RESISTANT ENTEROCOCCUS ... Complete 05/19/19 13:30 Rectum - Final NO CARBAPENEM-RESISTANT ENTEROBACTERI... Complete Sidra Ramos MD May 22, 2019 09:59
--- NOTE | 2019-05-22 12:35 | NUR ---
NURSE NOTES: SEEN BY PT. ORTHOSTATIC BP TAKEN. DR Maya MCCRAY CALLED , LEFT MESSAGE TO RETURN CALL
--- NOTE | 2019-05-22 13:01 | NUR ---
NURSE NOTES: DR Roberto PEREZ CALLED WITH ORTHOSTATIC BP. WILL CALL BACK FOR ORDERS.
--- NOTE | 2019-05-22 13:12 | Cardiology Report ---
APPROVED REPORT EKG Measurement Heart [id number] Normal sinus rhythm Right atrial enlargement Rightward axis Pulmonary disease pattern Abnormal ECG
--- NOTE | 2019-05-22 13:34 | NUR ---
NURSE NOTES: NS 500CC IV BOLUS STARTED ORDERED. WILL MONITOR PT'S ORTHOSTATIC BP.
--- NOTE | 2019-05-22 15:55 | NUR ---
NURSE NOTES: NS IV BOLUS COMPLETED. ORTHOSTATIC BP TAKEN AND RECORDED. PT IN NO DISTRESS.
--- NOTE | 2019-05-22 19:02 | NUR ---
NURSE NOTES: RESTING IN BED. IN NO DISTRESS.
--- NOTE | 2019-05-22 19:05 | NUR ---
HAND-OFF: Report given to Maya DAVID RN.
[2019-05-22] MEDS: Atorvastatin 20mg tab ORAL SCH (20:53)
[2019-05-23 04:00] VITALS: BP 151/77
--- NOTE | 2019-05-23 04:36 | NUR ---
NURSE NOTE: Pt is A/Ox4 with stable VS. Physical assessment completed and orders reviewed. Skin is intact. Left forearm 22g PIV is patent and dressing is clean, dry, and intact. Pt does not call to get out of bed despite education. Bed alarm remains on and bed is low and locked. Call lobo remains within reach. Pt does not complain any pain. Will continue to follow plan of care.
[2019-05-23] MEDS: NovoLOG Insulin Flexpen SUBQ SCH ×2 (06:30→11:53)
--- NOTE | 2019-05-23 07:15 | General Progress Note ---
Assessment/Plan Problem List: (1) CKD stage 3 due to type 2 diabetes mellitus ICD Codes: E11.22 - Type 2 diabetes mellitus with diabetic chronic kidney disease; N18.3 - Chronic kidney disease, stage 3 (moderate) SNOMED: 18489603, 872216819355 (2) Uncontrolled diabetes mellitus ICD Codes: E11.65 - Uncontrolled diabetes mellitus SNOMED: 304523285 (3) Dementia ICD Codes: F03.90 - Unspecified dementia without behavioral disturbance SNOMED: 39417543 Assessment/Plan: continue to hold and do not resume Glipizide continue Starlix and Januvia continue NISS ac / hs Subjective Allergies: Coded Allergies: SULFA (SULFONAMIDE ANTIBIOTICS) (Verified Allergy, Intermediate, Hives, ) CODEINE (Verified Adverse Reaction, Mild, vomiting, 08/12/13) All Systems: reviewed and negative except above Subjective events noted fair glycemic control Item Value Date Time Bedside Blood Glucose 85 mg/dl 05/23/19 0634 Bedside Blood Glucose 110 mg/dl 05/22/19 2110 Bedside Blood Glucose 85 mg/dl 05/22/19 1644 Bedside Blood Glucose 121 mg/dl H 05/22/19 1212 Bedside Blood Glucose 96 mg/dl 05/22/19 0630 Objective Last 24 Hour Vital Signs Date Time Temp Pulse Resp B/P (MAP) Pulse Ox O2 Delivery O2 Flow Rate FiO2 05/23/19 04:00 98.6 79 17 151/77 (101) 97 05/22/19 23:48 98.5 78 17 137/66 (89) 100 05/22/19 21:15 Room Air 05/22/19 20:14 74 15 99 Room Air 21 05/22/19 20:00 98.7 73 18 142/68 (92) 100 05/22/19 15:59 98.1 78 16 129/61 (83) 99 05/22/19 15:54 70 78 81 05/22/19 12:30 66 75 69 05/22/19 12:00 97.9 80 17 128/91 (103) 80 05/22/19 09:18 Room Air 05/22/19 09:00 77 79 83 05/22/19 08:37 82 126/69 05/22/19 08:00 97.3 82 17 124/69 (87) 99 8/25/19 07:45 78 15 97 Room Air 21 Intake and Output 05/22/19 05/23/19 19:00 07:00 Intake Total 1700 ml 360 ml Balance 1700 ml 360 ml Intake Oral 1200 ml 360 ml IV Total 500 ml # Voids 2 4 # Bowel Movements 1 Height (Feet): 5 Height (Inches): 3.00 Weight (Pounds): 121 General Appearance: no apparent distress Neck: normal alignment Cardiovascular: regular rhythm Respiratory/Chest: lungs clear Abdomen: normal bowel sounds Objective Current Medications Medications (Trade) Dose Ordered Sig/Harjit Route PRN Reason Start Time Stop Time Status Last Admin Dose Admin Acetaminophen (Tylenol) 650 mg Q4H PRN ORAL fever 05/19/19 13:15 06/18/19 13:14 Albuterol/ Ipratropium (Albuterol/ Ipratropium) 3 ml Q4H PRN HHN Shortness of Breath 05/19/19 13:15 05/24/19 13:14 Aspirin (ASA) 81 mg DAILY ORAL 05/20/19 09:00 06/19/19 08:59 05/22/19 08:37 Atorvastatin Calcium (Lipitor) 40 mg BEDTIME ORAL 05/20/19 21:00 06/19/19 20:59 05/22/19 20:53 Clonidine HCl (Catapres Tab) 0.1 mg Q4H PRN ORAL For High Blood Pressure 05/19/19 13:15 06/18/19 13:14 Dextrose (Dextrose 50%) 25 ml Q30M PRN IV Hypoglycemia 05/19/19 13:15 06/18/19 13:14 Dextrose (Dextrose 50%) 50 ml Q30M PRN IV Hypoglycemia 05/19/19 13:15 06/18/19 13:14 Heparin Sodium (Porcine) (Heparin 5000 units/ml) 5,000 units EVERY 12 HOURS SUBQ 05/19/19 21:00 06/18/19 20:59 05/22/19 20:54 Insulin Aspart (NovoLOG) BEFORE MEALS AND HS SUBQ 05/19/19 16:30 06/18/19 16:29 05/22/19 12:12 Lorazepam (Ativan 2mg/ml 1ml) 0.5 mg Q4H PRN IV For Anxiety 05/19/19 13:15 05/26/19 13:14 Memantine (Namenda) 5 mg DAILY ORAL 05/21/19 09:00 06/20/19 08:59 05/22/19 08:37 Nateglinide (Starlix) 120 mg THREE TIMES A DAY ORAL 05/19/19 18:00 06/18/19 17:59 05/22/19 17:17 Nitroglycerin (Ntg) 0.4 mg Q5M X 3 DOSES PRN SL Prn Chest Pain 05/19/19 13:15 06/18/19 13:14 Ondansetron HCl (Zofran) 4 mg Q6H PRN IVP Nausea & Vomiting 05/19/19 13:15 06/18/19 13:14 Polyethylene Glycol (Miralax) 17 gm HSPRN PRN ORAL Constipation 05/19/19 13:15 06/18/19 13:14 Sitagliptin Phosphate (Januvia) 100 mg DAILY ORAL 05/20/19 09:00 06/19/19 08:59 05/22/19 08:37 Temazepam (Restoril) 15 mg HSPRN PRN ORAL Insomnia 05/19/19 13:15 05/26/19 13:14 Ilya Lopez MD May 23, 2019 07:15
--- NOTE | 2019-05-23 07:30 | NUR ---
NURSE NOTES: Patient is in bed awake and able to verbalize needs. Stable. Denies pain or SOB at this time. Patient encouraged to use call light for assistance, verbalized understanding. Patient is in bed in locked and lowest position with call light within reach. All safety measures provided. Will continue to monitor.
--- NOTE | 2019-05-23 07:33 | NUR ---
HAND-OFF: Report given to Radha. Pt is stable. Endorsed plan of care.
[2019-05-23 08:00] VITALS: BP 141/66
[2019-05-23] MEDS ORDERED: Miralax 17gm pkt ORAL PRN (08:00)
[2019-05-23] MEDS: Aspirin Baby 81mg ORAL SCH (08:36)
[2019-05-23] MEDS: Memantine 5 MG TAB ORAL SCH (08:37)
[2019-05-23] MEDS: Heparin 5000 units/ml inj SUBQ SCH (08:39)
--- NOTE | 2019-05-23 09:24 | NUR ---
DISCHARGE PLANNING: NOTE PATIENT HAS BEEN ACCEPTED TO ROOM 228B AT [facility]
[2019-05-23] MEDS ORDERED: NS 500ML ONE (10:42)
--- NOTE | 2019-05-23 11:14 | Pulmonology Progress Note ---
Assessment/Plan Problems: (1) ATN (acute tubular necrosis) (2) Impaired mobility and ADLs (3) Dementia (4) Diabetes (5) CVA (cerebral vascular accident) (6) Failure to thrive Assessment/Plan doing better sliding scale diabetic diet pt/ot watch BP dc today to a rehab facility Subjective ROS Limited/Unobtainable: No Constitutional: Reports: no symptoms HEENT: Repors: no symptoms Respiratory: Reports: no symptoms Allergies: Coded Allergies: SULFA (SULFONAMIDE ANTIBIOTICS) (Verified Allergy, Intermediate, Hives, ) CODEINE (Verified Adverse Reaction, Mild, vomiting, 08/12/13) Objective Last 24 Hour Vital Signs Date Time Temp Pulse Resp B/P (MAP) Pulse Ox O2 Delivery O2 Flow Rate FiO2 05/23/19 09:00 83 82 87 05/23/19 09:00 Room Air 05/23/19 08:00 98.5 71 20 141/66 (91) 100 05/23/19 04:00 98.6 79 17 151/77 (101) 97 05/22/19 23:48 98.5 78 17 137/66 (89) 100 05/22/19 21:15 Room Air 05/22/19 20:14 74 15 99 Room Air 21 05/22/19 20:00 98.7 73 18 142/68 (92) 100 05/22/19 15:59 98.1 78 16 129/61 (83) 99 05/22/19 15:54 70 78 81 05/22/19 12:30 66 75 69 05/22/19 12:00 97.9 80 17 128/91 (103) 80 Intake and Output 05/22/19 05/23/19 19:00 07:00 Intake Total 1700 ml 360 ml Balance 1700 ml 360 ml Intake Oral 1200 ml 360 ml IV Total 500 ml # Voids 2 4 # Bowel Movements 1 Objective General Appearance: WD/WN HEENT: normocephalic, atraumatic Respiratory/Chest: chest wall non-tender, lungs clear Cardiovascular: normal peripheral pulses, normal rate Abdomen: normal bowel sounds, soft, non tender Genitourinary: normal external genitalia Extremities: no clubbing Skin: no rash, no ulcers Neurologic/Psychiatric: machine stonecutter II-XII grossly normal Musculoskeletal: normal muscle bulk Current Medications Medications (Trade) Dose Ordered Sig/Harjit Route PRN Reason Start Time Stop Time Status Last Admin Dose Admin Acetaminophen (Tylenol) 650 mg Q4H PRN ORAL fever 05/19/19 13:15 06/18/19 13:14 Albuterol/ Ipratropium (Albuterol/ Ipratropium) 3 ml Q4H PRN HHN Shortness of Breath 05/19/19 13:15 05/24/19 13:14 Aspirin (ASA) 81 mg DAILY ORAL 05/20/19 09:00 06/19/19 08:59 05/23/19 08:36 Atorvastatin Calcium (Lipitor) 40 mg BEDTIME ORAL 05/20/19 21:00 06/19/19 20:59 05/22/19 20:53 Clonidine HCl (Catapres Tab) 0.1 mg Q4H PRN ORAL For High Blood Pressure 05/19/19 13:15 06/18/19 13:14 Dextrose (Dextrose 50%) 25 ml Q30M PRN IV Hypoglycemia 05/19/19 13:15 06/18/19 13:14 Dextrose (Dextrose 50%) 50 ml Q30M PRN IV Hypoglycemia 05/19/19 13:15 06/18/19 13:14 Heparin Sodium (Porcine) (Heparin 5000 units/ml) 5,000 units EVERY 12 HOURS SUBQ 05/19/19 21:00 06/18/19 20:59 05/23/19 08:39 Insulin Aspart (NovoLOG) BEFORE MEALS AND HS SUBQ 05/19/19 16:30 06/18/19 16:29 05/22/19 12:12 Lorazepam (Ativan 2mg/ml 1ml) 0.5 mg Q4H PRN IV For Anxiety 05/19/19 13:15 05/26/19 13:14 Memantine (Namenda) 5 mg DAILY ORAL 05/21/19 09:00 06/20/19 08:59 05/23/19 08:37 Nateglinide (Starlix) 120 mg THREE TIMES A DAY ORAL 05/19/19 18:00 06/18/19 17:59 05/23/19 08:37 Nitroglycerin (Ntg) 0.4 mg Q5M X 3 DOSES PRN SL Prn Chest Pain 05/19/19 13:15 06/18/19 13:14 Ondansetron HCl (Zofran) 4 mg Q6H PRN IVP Nausea & Vomiting 05/19/19 13:15 06/18/19 13:14 Polyethylene Glycol (Miralax) 17 gm DAILYPRN PRN ORAL Constipation 05/23/19 08:00 06/22/19 07:59 05/23/19 08:37 Sitagliptin Phosphate (Januvia) 100 mg DAILY ORAL 05/20/19 09:00 06/19/19 08:59 05/23/19 08:36 Temazepam (Restoril) 15 mg HSPRN PRN ORAL Insomnia 05/19/19 13:15 05/26/19 13:14 Vidal Diaz MD May 23, 2019 11:14
[2019-05-23] MEDS ORDERED: NAMENDA10 MG ORAL (11:52)
[2019-05-23 12:00] VITALS: BP 127/63
--- NOTE | 2019-05-23 12:05 | NUR ---
DISCHARGE PLANNING PATIENT HAS BEEN ACCEPTED AT AND GOING TO [facility] ROOM 12A SKILLED T: [phone] FOR NURSE TO NURSE REPORT [facility] HAS BEEN ARRANGED FOR 1400 GRADUATE ASSISTANT ATHLETIC TRAINER
--- NOTE | 2019-05-23 13:41 | NUR ---
NURSE NOTES: Report given to Jeffy AYALA at [facility].
--- NOTE | 2019-05-23 14:25 | NUR ---
NURSE NOTES: Patient discharged to [facility] as ordered. Stable. Denies pain or SOB. Patient taken by jia with EMT Sher mcclellan from [facility]. Patient has all belongings. Paperwork given to EMT. All medication reconciliation included with discharge instructions and transfer sheet. No IV access. Skin is clean, dry, and intact. Patient's son aware of patient's transfer.
--- NOTE | 2019-05-24 09:53 | Discharge Summary ---
Discharge Summary Discharge Summary _ DATE OF ADMISSION: 05/19/2019 DATE OF DISCHARGE: 05/23/2019 DISCHARGED BY: Dr. Diaz REASON FOR ADMISSION: 68 years old female with past medical history of hypertension, CVA, diabetes mellitus, recent CVA few weeks ago ( hospitalized at [facility] [place] 2 weeks ago) was brought by her daughter due to severe forgetfulness and inability to provide activities of daily livings , along with worsening dementia. Patient had home health services at home , but lives alone and reported being afraid at night. Per daughter, she could not live with the patient at this time. Daughter brought the patient due to concern for mother safety and inability to perform activities of daily living. Upon evaluation vital signs were stable Laboratory work-up revealed no leukocytosis, stable hemoglobin and hematocrit. Stable electrolytes. BUN 36 creatinine 1.5. Glucose 130. EKG reveals sinus rhythm no acute ischemic changes. CT of the head demonstrated no acute intracranial bleeding or mass-effect. Chronic age-related changes, including old bilateral basal ganglia lacunar infarcts noted. Patient admitted for further evaluation . CONSULTANTS: development chemist Dr. Dewitt data entry supervisor Dr. Lopez [facility] COURSE: Patient admitted to medical surgical floor. Patient started on gentle IV fluids. Renal parameters and electrolytes were closely monitored, electrolytes corrected as needed and nephrotoxins were avoided. Renal ultrasound demonstrated mild increased right renal echogenicity , possibly indicative medical renal disease. Incidental finding of gallstones. Creatinine from 1.5 down to 1.4 upon discharge Transit Mixer Driver seen and evaluated patient . Blood pressure was managed with amlodipine. Echocardiogram demonstrated preserved ejection fraction of 65% with moderate to severe left ventricular hypertrophy. No evidence of wall motion abnormality. Right ventricular systolic pressure of 11. Lipid panel demonstrated elevated LDL 119 , elevated total cholesterol 209 , and stable triglyceride. TSH was within normal limits. Patient was continued on statin. Antiplatelet therapy with aspirin continued. Patient provided with low-fat low-cholesterol diabetic diet. Supplemental oxygen was on board as needed to keep pulse oximetry above 92%. Bronchodilator therapy was on board as needed. Pulse oximetry was stable on room air. DVT prophylaxis provided. Filter Plant Supervisor seen patient for uncontrolled blood sugar. Per data entry supervisor , patient had chronic kidney disease stage III , likely due to type 2 diabetes mellitus / GFR 45. He recommended not to resume glipizide , which was on hold from admission . Starlix and Januvia were continued along with sliding scale of insulin as needed. Patient was working with physical therapist. Fall precaution maintained. Supportive care provided. Bowel regimen instituted. Placement was found and secured at the care home facility . Patient was stable for transfer. FINAL DIAGNOSES: Cerebrovascular accident / recent 2 weeks ago Chronic kidney disease stage III due to type 2 diabetes mellitus Acute tubular necrosis Uncontrolled diabetes mellitus Dementia DISCHARGE MEDICATIONS: See Medication Reconciliation list. DISCHARGE INSTRUCTIONS: Patient was discharged to the care home facility. Follow up with medical doctor at the facility. I have been assigned to dictate discharge summary for this account. I was not involved in the patient's management. Lore Schreiber NP May 24, 2019 09:53
== END 2019-05-23 14:18 | DRG 884 ==
LOC: EMR 11:40 → 3E 12:23 → EDBEDREQ 12:55 → 3E 13:49
DX: F03.90 Unspecified dementia, unspecified severity, without behavioral disturbance, psychotic disturbance, mood disturbance, and anxiety (principal); N17.0 Acute kidney failure with tubular necrosis; R64 Cachexia; E11.22 Type 2 diabetes mellitus with diabetic chronic kidney disease; Z88.6 Allergy status to analgesic agent; Z88.2 Allergy status to sulfonamides; Z86.73 Personal history of transient ischemic attack (TIA), and cerebral infarction without residual deficits; I12.9 Hypertensive chronic kidney disease with stage 1 through stage 4 chronic kidney disease, or unspecified chronic kidney disease; E11.65 Type 2 diabetes mellitus with hyperglycemia; N18.3 Chronic kidney disease, stage 3 (moderate); Z74.09 Other reduced mobility; R62.7 Adult failure to thrive; Z60.2 Problems related to living alone; Z85.41 Personal history of malignant neoplasm of cervix uteri; Z86.11 Personal history of tuberculosis; E78.5 Hyperlipidemia, unspecified
CPT/HCPCS: 36415; 70450; 76770; 80053; 80061; 81001; 81003; 82043; 82550; 82962; 83935; 84300; 84443; 84550; 85025; 85610; 85730; 87081; 89050; 93005; 93306; 93880; 93970; 94664; 99285; J1815

== ENCOUNTER 2019-09-07 16:38 | Inpatient (IN) | payer MEDICARE ==
[~2019-09-07] VITALS: Ht 160 cm; Wt 57.6 kg
[~2019-09-07 16:38] MED LIST changes: +GLIPIZIDE5 MG ORAL; +LISINOPRIL5 MG ORAL; +NAMENDA10 MG ORAL; +NORVASC2.5 MG ORAL
[2019-09-07 16:50] VITALS: BP 180/75
[2019-09-07] MEDS ORDERED: NATEGLINIDE60 MG PO (16:56)
--- NOTE | 2019-09-07 17:03 | NUR ---
ED Nurse Note: pt ambulated to bathroom with slow but steady gait.
--- NOTE | 2019-09-07 17:07 | NUR ---
ED Nurse Note: Pt admitted and walked with a cane into ED. Pt came in for elevated blood pressure at the doctor's office; patient reported systole was over 200mmHg. ERMD at bedside. XRAY at bedside. Patient aa0 x4, calm, cooporative. Pt is in gown and on cardio monitor.
--- NOTE | 2019-09-07 17:27 | Emergency Room Report ---
History of Present Illness General Chief Complaint: Hypertension Source: Patient, Medical Record Present Illness HPI Patient reports that she has been somewhat noncompliant with her medications including blood pressure medication over the past several weeks and had a routine follow-up with her primary physician was found to have an elevated blood pressure and sent to the emergency room Patient denies any other symptoms denies any headache denies any chest pain Denies any back or flank pain denies any focal weakness Allergies: Coded Allergies: SULFA (SULFONAMIDE ANTIBIOTICS) (Verified Allergy, Intermediate, Hives, ) CODEINE (Verified Adverse Reaction, Mild, vomiting, 08/12/13) Patient History Past Medical History: see triage record Reviewed Nursing Documentation: PMH: Agreed; PSxH: Agreed Nursing Documentation-PMH Past Medical History: No History, Except For Hx Cardiac Problems: Yes Hx Hypertension: Yes Hx Diabetes: Yes Hx Cancer: No Hx Gastrointestinal Problems: No Hx Neurological Problems: Yes Hx Cerebrovascular Accident: Yes - April 2019 Hx Dementia: Yes Review of Systems All Other Systems: negative except mentioned in HPI Physical Exam Vital Signs Date Time Temp Pulse Resp B/P (MAP) Pulse Ox O2 Delivery O2 Flow Rate FiO2 09/07/19 16:44 98.1 81 16 184/73 (110) 99 Room Air Sp02 EP Interpretation: reviewed, normal General Appearance: well appearing, no apparent distress Head: normocephalic, atraumatic Eyes: bilateral eye PERRL, bilateral eye EOMI ENT: hearing grossly normal, normal pharynx, TMs + canals normal, uvula midline Neck: full range of motion, supple, no meningismus, no bony tend Respiratory: lungs clear, normal breath sounds, no rhonchi, no respiratory distress, no retraction, no accessory muscle use Cardiovascular #1: normal peripheral pulses, regular rate, rhythm, no edema, no gallop, no JVD, no murmur Gastrointestinal: normal bowel sounds, non tender, soft, no mass, no organomegaly, non-distended, no guarding, no hernia, no pulsatile mass, no rebound Genitourinary: no CVA tenderness Musculoskeletal: normal inspection Neurologic: motor strength/tone normal, 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, oriented x3 , sensory intact, responsive Psychiatric: mood/affect normal Skin: no rash Lymphatic: normal inspection, no adenopathy Medical Decision Making Diagnostic Impression: Primary Impression: Hypertensive urgency, malignant ER Course Multiple differentials and consideration including but not limited to cardiac, neurologic, neurosurgical process entertained after discussion with primary physician He reports concern regarding the patient's confusion as well Initial blood work and imaging is appropriate and patient admitted for further care Labs Test 09/07/19 17:15 09/08/19 07:50 09/08/19 16:50 White Blood Count 5.9 K/UL (4.8-10.8) 6.0 K/UL (4.8-10.8) Red Blood Count 4.06 M/UL (4.20-5.40) 3.82 M/UL (4.20-5.40) Hemoglobin 11.7 G/DL (12.0-16.0) 10.8 G/DL (12.0-16.0) Hematocrit 34.5 % (37.0-47.0) 33.7 % (37.0-47.0) Mean Corpuscular Volume 85 FL (80-99) 88 FL (80-99) Mean Corpuscular Hemoglobin 28.9 PG (27.0-31.0) 28.2 PG (27.0-31.0) Mean Corpuscular Hemoglobin Concent 33.9 G/DL (32.0-36.0) 31.9 G/DL (32.0-36.0) Red Cell Distribution Width 10.3 % (11.6-14.8) 11.7 % (11.6-14.8) Platelet Count 199 K/UL (150-450) 180 K/UL (150-450) Mean Platelet Volume 9.4 FL (6.5-10.1) 9.5 FL (6.5-10.1) Neutrophils (%) (Auto) 56.5 % (45.0-75.0) 63.3 % (45.0-75.0) Lymphocytes (%) (Auto) 29.4 % (20.0-45.0) 23.1 % (20.0-45.0) Monocytes (%) (Auto) 11.3 % (1.0-10.0) 11.3 % (1.0-10.0) Eosinophils (%) (Auto) 1.4 % (0.0-3.0) 1.3 % (0.0-3.0) Basophils (%) (Auto) 1.3 % (0.0-2.0) 0.9 % (0.0-2.0) Sodium Level 139 MMOL/L (136-145) Potassium Level 4.0 MMOL/L (3.5-5.1) Chloride Level 101 MMOL/L (98-107) Carbon Dioxide Level 31 MMOL/L (21-32) Anion Gap 7 mmol/L (5-15) Blood Urea Nitrogen 27 mg/dL (7-18) Creatinine 1.3 MG/DL (0.55-1.30) Estimat Glomerular Filtration Rate 49.2 mL/min (>60) Glucose Level 159 MG/DL (74-106) Calcium Level 9.6 MG/DL (8.5-10.1) Total Bilirubin 0.3 MG/DL (0.2-1.0) Aspartate Amino Transf (AST/SGOT) 23 U/L (15-37) Alanine Aminotransferase (ALT/SGPT) 26 U/L (12-78) Alkaline Phosphatase 94 U/L (46-116) Troponin I 0.000 ng/mL (0.000-0.056) 0.019 ng/mL (0.000-0.056) Total Protein 8.8 G/DL (6.4-8.2) Albumin 4.1 G/DL (3.4-5.0) Globulin 4.7 g/dL Albumin/Globulin Ratio 0.9 (1.0-2.7) Prothrombin Time 10.5 SEC (9.30-11.50) Prothromb Time International Ratio 1.0 (0.9-1.1) Activated Partial Thromboplast Time 24 SEC (23-33) Hemoglobin A1c 7.4 % (4.3-6.0) C-Reactive Protein, Quantitative < 0.4 mg/dL (0.00-0.90) Triglycerides Level 42 MG/DL (30-150) Cholesterol Level 215 MG/DL (< 200) LDL Cholesterol 109 mg/dL (<100) HDL Cholesterol 93 MG/DL (40-60) Cholesterol/HDL Ratio 2.3 (3.3-4.4) Thyroid Stimulating Hormone (TSH) 3.734 uiU/mL (0.358-3.740) Rhythm Strip Diag. Results EP Interpretation: yes Rate: 88 Rhythm: NSR, no PVC's, no ectopy Chest X-Ray Diagnostic Results Chest X-Ray Diagnostic Results : Chest X-Ray Ordered: Yes # of Views/Limited/Complete: 1 View Indication: Chest Pain EP Interpretation: Yes Interpretation: no consolidation, no effusion, no pneumothorax Impression: No acute disease Electronically Signed by: Venus Watson DO CT/MRI/US Diagnostic Results CT/MRI/US Diagnostic Results : Impression CT headImpression: No evidence of acute intracranial hemorrhage, mass effect or cortical edema. MRI may be obtained for more sensitive evaluation as clinically indicated. Atrophy and nonspecific periventricular hypoattenuation suggestive of chronic ischemic microvascular changes. Chronic lacunar infarcts in the bilateral basal ganglia. Last Vital Signs Date Time Temp Pulse Resp B/P (MAP) Pulse Ox O2 Delivery O2 Flow Rate FiO2 09/07/19 16:44 98.1 81 16 184/73 (110) 99 Room Air Status: improved Disposition: ADMITTED INPATIENT Condition: Serious Referrals: Vidal Diaz MD (PCP) Venus Watson DO Sep 07, 2019 17:27
[2019-09-07] MEDS ORDERED: Miralax 17gm pkt ORAL PRN (17:45)
[2019-09-07] MEDS ORDERED: Labetalol 5mg/ml 20ml vial IV PRN (17:45)
[2019-09-07] MEDS ORDERED: Enalaprilat 2.5mg/2ml Inj IV PRN (17:45)
[2019-09-07] MEDS ORDERED: dilTIAZem HCl 25mg/5ml Inj IV PRN (17:45)
[2019-09-07] MEDS ORDERED: Nitroglycerin Subl 0.4mg tab SL PRN (17:45)
[2019-09-07] MEDS ORDERED: Albuterol/Ipratropium 3ml neb HHN PRN (17:45)
[2019-09-07 17:50] LABS: ANION GAP 7 mmol/L (5-15); BLOOD UREA NITROGEN 27 mg/dL (7-18); CALCIUM 9.6 MG/DL (8.5-10.1); CARBON DIOXIDE 31 MMOL/L (21-32); CHLORIDE 101 MMOL/L (98-107); CREATININE 1.3 MG/DL (0.55-1.30); SODIUM 139 MMOL/L (136-145)
[2019-09-07 17:54] LABS: BASOPHILS % (AUTO) 1.3 % (0.0-2.0); EOSINOPHILS % (AUTO) 1.4 % (0.0-3.0); HEMATOCRIT 34.5 % (37.0-47.0); HEMOGLOBIN 11.7 G/DL (12.0-16.0); LYMPHOCYTES % (AUTO) 29.4 % (20.0-45.0); MEAN CORPUSCULAR VOLUME 85 FL (80-99); MONOCYTES % (AUTO) 11.3 % (1.0-10.0); NEUTROPHILS % (AUTO) 56.5 % (45.0-75.0); PLATELET COUNT 199 K/UL (150-450); RED BLOOD COUNT 4.06 M/UL (4.20-5.40); RED CELL DISTRIBUTION WIDTH 10.3 % (11.6-14.8); WHITE BLOOD COUNT 5.9 K/UL (4.8-10.8)
[2019-09-07 18:02] LABS: ALANINE AMINOTRANSFERASE 26 U/L (12-78); ALBUMIN 4.1 G/DL (3.4-5.0); ALBUMIN/GLOBULIN RATIO 0.9 (1.0-2.7); ALKALINE PHOSPHATASE 94 U/L (46-116); ASPARTATE AMINO TRANSFERASE 23 U/L (15-37); BILIRUBIN,TOTAL 0.3 MG/DL (0.2-1.0)
--- NOTE | 2019-09-07 18:08 | NUR ---
ED Nurse Note: Pt taken to CT in stable condition.
--- NOTE | 2019-09-07 18:14 | NUR ---
ED Nurse Note: pt came back from CT in stable condition.
--- NOTE | 2019-09-07 18:24 | Diagnostic Imaging Report ---
Indication: Altered mental status Technique: Continuous helical CT scanning of the head was performed utilizing automated exposure control without intravenous contrast material. Axial and coronal reconstructions were obtained. Comparison: 05/19/2019 CT dose: Total DLP 1274.1 mGycm; CTDI vol XT mGy Findings: There is no acute intracranial hemorrhage, mass effect or cortical edema. There is no shift of midline structures. Chronic lacunar infarcts again noted in the bilateral basal ganglia similar to the prior exam. The ventricles, cisterns and sulci are mildly prominent consistent with atrophy. Periventricular hypoattenuation is seen, a nonspecific finding. There are atherosclerotic vascular calcifications. Visualized mastoid air cells and paranasal sinuses are unremarkable. No focal lesions of the bony calvarium or soft tissues of the scalp are seen. Impression: No evidence of acute intracranial hemorrhage, mass effect or cortical edema. MRI may be obtained for more sensitive evaluation as clinically indicated. Atrophy and nonspecific periventricular hypoattenuation suggestive of chronic ischemic microvascular changes. Chronic lacunar infarcts in the bilateral basal ganglia. The CT scanner at [facility] is accredited by the [employer] and the scans are performed using protocols designed to limit radiation exposure to as low as reasonably achievable to attain images of sufficient resolution adequate for diagnostic evaluation.
--- NOTE | 2019-09-07 18:53 | NUR ---
ED Nurse Note: report given to JAMIE Johnson
--- NOTE | 2019-09-07 19:09 | NUR ---
HAND-OFF: Report given to JAMIE Longoria. BP needs to be checked prior to transfer.
[2019-09-07] MEDS ORDERED: Enalaprilat 2.5mg/2ml Inj IV ONE (19:30)
[2019-09-07 19:50] VITALS: BP 154/78
[2019-09-07 19:52] VITALS: BP 154/78
[2019-09-07 19:56] VITALS: BP 142/66
--- NOTE | 2019-09-07 19:56 | NUR ---
NURSE NOTES: Patient arrived to tele unit via gurney, staff member assist to bed without incident. Patient AOx4, able to make needs known. No signs of distress, pain, or shortness of breath noted. Son at bedside. Belongings list checked, signed by patient and son. Son (Bruno) taking money and cellphone home. Patient placed on tele box, tolerated well. Skin assessed, intact. IV site checked, intact and patent, no signs of redness, infiltration, or bleeding noted. Patient oriented to room. Bed in lowest position, brakes on, side rails up x2, and call light within reach. Will continue with plan of care.
[2019-09-07] MEDS: Heparin 5000 units/ml inj SUBQ SCH (20:52)
[2019-09-08] VITALS: BP 106/57
[2019-09-08 04:00] VITALS: BP 112/51
--- NOTE | 2019-09-08 07:18 | NUR ---
HAND-OFF: Report given to JAMIE Arrington. Patient in stable condition, plan of care endorsed.
--- NOTE | 2019-09-08 07:20 | NUR ---
NURSE NOTES: Received patient and report from JAMIE Reddy. Patient was on the commode, assisted back to bed and position comfortably in bed. Denies any pain at this time, no s/s of respiratory distress or SOB noted at this time. Bed is in lowest position with bedside rails up X3. Call light is within reach. Will continue with the plan of care.
[2019-09-08 08:00] VITALS: BP 107/52
[2019-09-08 08:43] LABS: HEMATOCRIT 33.7 % (37.0-47.0); HEMOGLOBIN 10.8 G/DL (12.0-16.0); MEAN CORPUSCULAR VOLUME 88 FL (80-99); RED BLOOD COUNT 3.82 M/UL (4.20-5.40)
[2019-09-08 08:44] LABS: BASOPHILS % (AUTO) 0.9 % (0.0-2.0); EOSINOPHILS % (AUTO) 1.3 % (0.0-3.0); LYMPHOCYTES % (AUTO) 23.1 % (20.0-45.0); MONOCYTES % (AUTO) 11.3 % (1.0-10.0); NEUTROPHILS % (AUTO) 63.3 % (45.0-75.0); PLATELET COUNT 180 K/UL (150-450); RED CELL DISTRIBUTION WIDTH 11.7 % (11.6-14.8)
[2019-09-08] MEDS: Heparin 5000 units/ml inj SUBQ SCH ×2 (08:49→21:11)
[2019-09-08 09:26] LABS: CHOLESTEROL 215 MG/DL (< 200); HDL CHOLESTEROL 93 MG/DL (40-60); TRIGLYCERIDES 42 MG/DL (30-150)
--- NOTE | 2019-09-08 10:51 | Diagnostic Imaging Report ---
Indication: Chest pain Technique: XRAY Chest 1v Comparison: 11/10/2018 Findings: Borderline cardiomegaly is stable compared to the prior exam. Mediastinal contours are sharp. There are atherosclerotic vascular calcifications. There is no focal airspace consolidation, pneumothorax or pleural effusion. . There is scoliosis and degenerative changes of the spine. Osseous structures demonstrate no acute abnormality. Metallic foreign body in the shape of a safety clip projecting over the right abdomen likely external to the patient. Impression: No radiographic evidence of acute cardiopulmonary disease.
[2019-09-08 12:00] VITALS: BP 112/57
--- NOTE | 2019-09-08 12:45 | Cardiology Report ---
APPROVED REPORT EKG Measurement Heart [id number] AL [id number] Normal sinus rhythm Possible Left atrial enlargement Borderline ECG
--- NOTE | 2019-09-08 12:48 | Consultation ---
History of Present Illness General Date patient seen: Sep 08, 2019 Chief Complaint: Hypertension Present Illness HPI 68 year of female with hx of HTN, DM, recent CVA, was send to ER by my PA, since she has stopped taking her meds and her bp shoot up. she stopped taking her diabetic meds too. Allergies: Coded Allergies: SULFA (SULFONAMIDE ANTIBIOTICS) (Verified Allergy, Intermediate, Hives, ) CODEINE (Verified Adverse Reaction, Mild, vomiting, 08/12/13) Medication History Scheduled Amlodipine Besylate (Norvasc), 2.5 MG ORAL DAILY, (Reported) Lisinopril (Lisinopril*), 5 MG ORAL DAILY, (Reported) Nateglinide (Nateglinide), 60 MG PO DAILY, (Reported) Sitagliptin (Januvia), 100 MG ORAL DAILY, (Reported) Discontinued Medications Aspirin* (Aspirin*), 81 MG ORAL DAILY Discontinued Reason: MD discontinued med Glipizide* (Glipizide*), 5 MG ORAL DAILY, (Reported) Discontinued Reason: MD discontinued med Memantine Hcl* (Namenda*), 5 MG ORAL DAILY Discontinued Reason: MD discontinued med Nateglinide (Starlix), 120 MG ORAL THREE TIMES A DAY, (Reported) Discontinued Reason: Medication dose changed Vitamin D (Vitamin D3), 400 UNITS ORAL DAILY, (Reported) Discontinued Reason: MD discontinued med Patient History Healthcare decision maker Resuscitation status Full Code Advanced Directive on File No Past Medical/Surgical History Past Medical/Surgical History: (1) CVA (cerebral vascular accident) (2) Diabetes (3) CKD stage 3 due to type 2 diabetes mellitus (4) Dementia Review of Systems All Other Systems: negative except mentioned in HPI Physical Exam General Appearance: thin Lines, tubes and drains: peripheral HEENT: normocephalic, atraumatic Neck: non-tender, normal alignment Respiratory/Chest: chest wall non-tender, lungs clear Breasts: no masses Cardiovascular/Chest: normal peripheral pulses Abdomen: normal bowel sounds, non tender Genitourinary/Rectal: normal genital exam Extremities: normal range of motion Skin Exam: normal pigmentation 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 Last 24 Hour Vital Signs Date Time Temp Pulse Resp B/P (MAP) Pulse Ox O2 Delivery O2 Flow Rate FiO2 09/08/19 09:00 Room Air 09/08/19 08:00 80 09/08/19 08:00 97.9 80 18 107/52 (70) 98 09/08/19 04:00 99.0 66 17 112/51 (71) 97 09/08/19 04:00 61 09/08/19 00:00 97.7 70 18 106/57 (73) 96 09/08/19 00:00 78 09/07/19 22:06 Room Air 09/07/19 20:51 142/66 09/07/19 20:00 88 09/07/19 19:56 97.5 85 19 142/66 (91) 99 09/07/19 19:52 98.1 90 18 154/78 99 Room Air 09/07/19 19:50 98.1 90 18 154/78 99 Room Air 09/07/19 19:50 98.1 90 18 154/78 99 Room Air 09/07/19 18:43 193/89 09/07/19 16:50 98.1 73 16 180/75 99 Room Air 09/07/19 16:50 73 16 Room Air 09/07/19 16:44 98.1 81 16 184/73 (110) 99 Room Air Intake and Output 09/07/19 09/08/19 18:59 06:59 Intake Total 0 ml 480 ml Balance 0 ml 480 ml Intake Oral 0 ml 480 ml # Voids 3 Laboratory Tests Test 09/07/19 17:15 09/08/19 07:50 White Blood Count 5.9 K/UL (4.8-10.8) 6.0 K/UL (4.8-10.8) Red Blood Count 4.06 M/UL (4.20-5.40) L 3.82 M/UL (4.20-5.40) L Hemoglobin 11.7 G/DL (12.0-16.0) L 10.8 G/DL (12.0-16.0) L Hematocrit 34.5 % (37.0-47.0) L 33.7 % (37.0-47.0) L Mean Corpuscular Volume 85 FL (80-99) 88 FL (80-99) Mean Corpuscular Hemoglobin 28.9 PG (27.0-31.0) 28.2 PG (27.0-31.0) Mean Corpuscular Hemoglobin Concent 33.9 G/DL (32.0-36.0) 31.9 G/DL (32.0-36.0) L Red Cell Distribution Width 10.3 % (11.6-14.8) L 11.7 % (11.6-14.8) Platelet Count 199 K/UL (150-450) 180 K/UL (150-450) Mean Platelet Volume 9.4 FL (6.5-10.1) 9.5 FL (6.5-10.1) Neutrophils (%) (Auto) 56.5 % (45.0-75.0) 63.3 % (45.0-75.0) Lymphocytes (%) (Auto) 29.4 % (20.0-45.0) 23.1 % (20.0-45.0) Monocytes (%) (Auto) 11.3 % (1.0-10.0) H 11.3 % (1.0-10.0) H Eosinophils (%) (Auto) 1.4 % (0.0-3.0) 1.3 % (0.0-3.0) Basophils (%) (Auto) 1.3 % (0.0-2.0) 0.9 % (0.0-2.0) Sodium Level 139 MMOL/L (136-145) Potassium Level 4.0 MMOL/L (3.5-5.1) Chloride Level 101 MMOL/L (98-107) Carbon Dioxide Level 31 MMOL/L (21-32) Anion Gap 7 mmol/L (5-15) Blood Urea Nitrogen 27 mg/dL (7-18) H Creatinine 1.3 MG/DL (0.55-1.30) Estimat Glomerular Filtration Rate 49.2 mL/min (>60) Glucose Level 159 MG/DL (74-106) H Calcium Level 9.6 MG/DL (8.5-10.1) Total Bilirubin 0.3 MG/DL (0.2-1.0) Aspartate Amino Transf (AST/SGOT) 23 U/L (15-37) Alanine Aminotransferase (ALT/SGPT) 26 U/L (12-78) Alkaline Phosphatase 94 U/L (46-116) Troponin I 0.000 ng/mL (0.000-0.056) Total Protein 8.8 G/DL (6.4-8.2) H Albumin 4.1 G/DL (3.4-5.0) Globulin 4.7 g/dL Albumin/Globulin Ratio 0.9 (1.0-2.7) L Prothrombin Time 10.5 SEC (9.30-11.50) Prothromb Time International Ratio 1.0 (0.9-1.1) Activated Partial Thromboplast Time 24 SEC (23-33) C-Reactive Protein, Quantitative < 0.4 mg/dL (0.00-0.90) Triglycerides Level 42 MG/DL (30-150) Cholesterol Level 215 MG/DL (< 200) H LDL Cholesterol 109 mg/dL (<100) H HDL Cholesterol 93 MG/DL (40-60) H Cholesterol/HDL Ratio 2.3 (3.3-4.4) L Thyroid Stimulating Hormone (TSH) 3.734 uiU/mL (0.358-3.740) Height (Feet): 5 Height (Inches): 3.00 Weight (Pounds): 127 Medications Current Medications Medications (Trade) Dose Ordered Sig/Harjit Route PRN Reason Start Time Stop Time Status Last Admin Dose Admin Acetaminophen (Tylenol) 650 mg Q4H PRN ORAL FEVER 09/07/19 17:45 10/07/19 17:44 Albuterol/ Ipratropium (Albuterol/ Ipratropium) 3 ml Q4H PRN HHN Shortness of Breath 09/07/19 17:45 09/12/19 17:44 Diltiazem HCl (Cardizem) 10 mg Q1H PRN IV heart rate more than 120 09/07/19 17:45 10/07/19 17:44 Enalaprilat (Vasotec) 2.5 mg Q6H PRN IV sbp more than 160 09/07/19 17:45 10/07/19 17:44 Heparin Sodium (Porcine) (Heparin 5000 units/ml) 5,000 units EVERY 12 HOURS SUBQ 09/07/19 21:00 10/07/19 20:59 09/08/19 08:49 Nitroglycerin (Ntg) 0.4 mg Q5M PRN SL Prn Chest Pain 09/07/19 17:45 10/07/19 17:44 Ondansetron HCl (Zofran) 4 mg Q6H PRN IVP Nausea & Vomiting 09/07/19 17:45 10/07/19 17:44 Pantoprazole (Protonix) 40 mg DAILY ORAL 09/08/19 09:00 10/08/19 08:59 09/08/19 08:47 Polyethylene Glycol (Miralax) 17 gm DAILYPRN PRN ORAL Constipation 09/07/19 17:45 10/07/19 17:44 Temazepam (Restoril) 15 mg HSPRN PRN ORAL Insomnia 09/07/19 17:45 09/14/19 17:44 Assessment/Plan Problem List: (1) Uncontrolled hypertension ICD Codes: I10 - Essential (primary) hypertension SNOMED: 04083677, 36405185 (2) Uncontrolled diabetes mellitus ICD Codes: E11.65 - Uncontrolled diabetes mellitus SNOMED: 010408715 (3) CKD stage 3 due to type 2 diabetes mellitus ICD Codes: E11.22 - Type 2 diabetes mellitus with diabetic chronic kidney disease; N18.3 - Chronic kidney disease, stage 3 (moderate) SNOMED: 75001122, 943472868019 Assessment/Plan: telemetry monitoring sliding scale diabetic diet pt/ot Vidal Diaz MD Sep 08, 2019 12:48
--- NOTE | 2019-09-08 13:29 | Cardiology Report ---
APPROVED REPORT EXAM: Two-dimensional and M-mode echocardiogram with Doppler and color Doppler. INDICATION LV Function M-Mode DIMENSIONS IVSd1.4 (0.7-1.1cm)Left Atrium (MM)2.8 (1.6-4.0cm) LVDd3.1 (3.5-5.6cm)Aortic Root2.2 (2.0-3.7cm) PWd1.3 (0.7-1.1cm)Aortic Cusp Exc.1.7 (1.5-2.0cm) LVDs1.8 (2.5-4.0cm) PWs1.4 cm Normal left ventricular chamber size, systolic function and wall motion. Left ventricular ejection fraction estimated to be 65 %. Mild left ventricular hypertrophy. Trivial pericardial effusion. Focal aortic valve sclerosis with adequate cusp excursion. Thickened mitral valve leaflets with normal excursion. Mitral annulus and aortic root calcification. Normal pulmonic valve structure. Normal tricuspid valve structure. IVC at normal size with slight physiologic collapse. A color flow and spectral Doppler study was performed and revealed: Trace aortic regurgitation. Trace mitral regurgitation. Mitral diastolic velocities suggest reduced left ventricular relaxation c/w mild LV diastolic dysfunction (Grade I). Trace tricuspid regurgitation. Tricuspid systolic velocities suggests peak right ventricular systolic pressure of 24 mmHg. Trace pulmonic regurgitation present.
[2019-09-08] MEDS ORDERED: MULTIVITAMINS1 EAC2 ORAL (13:31)
[2019-09-08] MEDS ORDERED: VITAMIN B-12500 MCG ORAL (13:31)
[2019-09-08] MEDS ORDERED: VITAMIN C500 M1 ORAL (13:31)
--- NOTE | 2019-09-08 14:45 | NUR ---
CASE MANAGEMENT:REVIEW 68 YR OLD FEMALE SENT TO ER BY PCP CC: ELEVATED BLOOD PRESSURE SI: MALIGNANT HYPERTENSION 98.0 81 16 184/73 99% ON RA H/H-11.7/34.5 BUN+27 IS: IV HYDRALAZINE IV VASOTEC CT HEAD 2DECHO CHEST XRAY : TO TELEMETRY
[2019-09-08 16:00] VITALS: BP 114/55
--- NOTE | 2019-09-08 19:31 | NUR ---
HAND-OFF: Report given to Sherry. Endorsed the plan of care. Patient is in stable condition.
--- NOTE | 2019-09-08 19:35 | NUR ---
NURSE NOTES: Pt is alert and oriented x4. resting comfortably in bed, on room air. Denies any pain at this time, no s/s of respiratory distress or SOB noted at this time. Bed is in lowest position with bedside rails up X2. Call light is within reach. Will continue with the plan of care
--- NOTE | 2019-09-08 19:45 | Consultation ---
DATE OF CONSULTATION: 09/08/2019 ENDOCRINOLOGY CONSULTATION CONSULTING PHYSICIAN: Ilya Lopez M.D. REFERRING PHYSICIAN: Vidal Diaz M.D. REASON FOR CONSULTATION: Diabetes management. HISTORY OF PRESENT ILLNESS: The patient is a 68-year-old female with past medical history of diabetes, hypertension, and CVA who presented to the hospital with elevated blood pressure. The patient stopped taking her medications. Glucose was elevated. Endocrinology was consulted. PAST MEDICAL HISTORY: 1. Diabetes. 2. Hypertension 3. CVA. ALLERGIES: To sulfa and codeine. FAMILY HISTORY: Noncontributory. SOCIAL HISTORY: No smoking, alcohol, or drug use. REVIEW OF SYSTEMS: As per HPI. LABORATORY VALUES: Sodium 139, potassium 4, chloride 101, bicarb 31, BUN 27, creatinine 1.3, glucose 169. TSH 3.7. PHYSICAL EXAMINATION: VITAL SIGNS: Blood pressure 114/55, pulse 65, temperature of 97.7, respiratory rate 18. HEENT: Pupils are reactive to light. Sclerae are anicteric. NECK: No JVD. No thyromegaly. No bruit. LUNGS: Clear. HEART: Regular rate and rhythm. ABDOMEN: Positive bowel sounds. EXTREMITIES: No clubbing, cyanosis, edema. DIAGNOSES: 1. Hypertensive urgency. 2. Diabetes out of control. 3. Noncompliance. PLAN: 1. Resume Januvia 100 mg daily. 2. Hold off on Starlix. 3. NovoLog sliding scale, low dose. 4. Check hemoglobin A1c. 5. Further adjustment according to blood glucose values. Thank you, Dr. Diaz, for the courtesy of this consultation. Ilya Lopez M.D. DR: ALFREDO JOB#: [id number] CC:
[2019-09-08 20:00] VITALS: BP 143/65
[2019-09-08] MEDS: NovoLOG Insulin Flexpen SUBQ SCH (21:29)
[2019-09-09] VITALS (7 sets, daily range): BP systolic 113–155; BP diastolic 46–72
[2019-09-09] MEDS: NovoLOG Insulin Flexpen SUBQ SCH ×4 (06:42→20:46)
--- NOTE | 2019-09-09 07:27 | NUR ---
HAND-OFF: Report given to SANDIP Singh.
--- NOTE | 2019-09-09 07:30 | NUR ---
NURSE NOTES: Pt is awake, alert and oriented x4. resting comfortably in bed, on room air. eating breakfast. Denies any pain at this time, no s/s of respiratory distress or SOB noted at this time. Bed is in lowest position with bedside rails up X2. Call light is within reach. Will continue with the plan of care
[2019-09-09] MEDS: Heparin 5000 units/ml inj SUBQ SCH ×2 (08:13→20:45)
--- NOTE | 2019-09-09 11:36 | NUR ---
NURSE NOTES: patient IV access got removed by accident and refused to be reinserted. Explained the indications and remained refused. will cont to monitor.
[2019-09-09] MEDS ORDERED: JANUVIA100 MG ORAL (12:41)
--- NOTE | 2019-09-09 12:44 | Pulmonology Progress Note ---
Assessment/Plan Problems: (1) Uncontrolled hypertension (2) Uncontrolled diabetes mellitus (3) CKD stage 3 due to type 2 diabetes mellitus Assessment/Plan Januvia and sliding scale resume Norvasc 2.5 BID f/u endo recommendations Subjective ROS Limited/Unobtainable: No Constitutional: Reports: no symptoms HEENT: Repors: no symptoms Respiratory: Reports: no symptoms Allergies: Coded Allergies: SULFA (SULFONAMIDE ANTIBIOTICS) (Verified Allergy, Intermediate, Hives, ) CODEINE (Verified Adverse Reaction, Mild, vomiting, 08/12/13) Objective Last 24 Hour Vital Signs Date Time Temp Pulse Resp B/P (MAP) Pulse Ox O2 Delivery O2 Flow Rate FiO2 09/09/19 12:00 98.1 76 18 155/70 (98) 98 09/09/19 09:00 Room Air 09/09/19 08:00 96.8 76 18 146/67 (93) 100 09/09/19 04:00 64 09/09/19 04:00 96.5 64 18 129/60 (83) 97 09/09/19 00:00 96.2 62 18 137/64 (88) 95 09/09/19 00:00 58 09/08/19 21:00 Room Air 09/08/19 20:00 99.5 68 18 143/65 (91) 99 09/08/19 20:00 83 09/08/19 16:00 65 09/08/19 16:00 97.7 77 18 114/55 (74) 99 Intake and Output 09/08/19 09/09/19 19:00 07:00 Intake Total 720 ml Output Total 1 ml Balance 719 ml Intake Oral 720 ml Output Urine Total 1 ml # Voids 1 # Bowel Movements 2 Objective General Appearance: WD/WN, no acute distress HEENT: normocephalic, atraumatic Respiratory/Chest: chest wall non-tender, lungs clear Breasts: no masses Cardiovascular: normal rate Abdomen: normal bowel sounds, soft, non tender Genitourinary: normal external genitalia Extremities: no cyanosis General Appearance: WD/WN HEENT: atraumatic Laboratory Tests 09/08/19 16:50: Troponin I 0.019 Current Medications Medications (Trade) Dose Ordered Sig/Harjit Route PRN Reason Start Time Stop Time Status Last Admin Dose Admin Acetaminophen (Tylenol) 650 mg Q4H PRN ORAL FEVER 09/07/19 17:45 10/07/19 17:44 Albuterol/ Ipratropium (Albuterol/ Ipratropium) 3 ml Q4H PRN HHN Shortness of Breath 09/07/19 17:45 09/12/19 17:44 Dextrose (Dextrose 50%) 25 ml Q30M PRN IV Hypoglycemia 09/08/19 19:00 10/08/19 18:59 Dextrose (Dextrose 50%) 50 ml Q30M PRN IV Hypoglycemia 09/08/19 19:00 10/08/19 18:59 Diltiazem HCl (Cardizem) 10 mg Q1H PRN IV heart rate more than 120 09/07/19 17:45 10/07/19 17:44 Enalaprilat (Vasotec) 2.5 mg Q6H PRN IV sbp more than 160 09/07/19 17:45 10/07/19 17:44 Heparin Sodium (Porcine) (Heparin 5000 units/ml) 5,000 units EVERY 12 HOURS SUBQ 09/07/19 21:00 10/07/19 20:59 09/09/19 08:13 Insulin Aspart (NovoLOG) BEFORE MEALS AND HS SUBQ 09/08/19 21:00 10/08/19 20:59 09/09/19 06:42 Nitroglycerin (Ntg) 0.4 mg Q5M PRN SL Prn Chest Pain 09/07/19 17:45 10/07/19 17:44 Ondansetron HCl (Zofran) 4 mg Q6H PRN IVP Nausea & Vomiting 09/07/19 17:45 10/07/19 17:44 Pantoprazole (Protonix) 40 mg DAILY ORAL 09/08/19 09:00 10/08/19 08:59 09/09/19 08:10 Polyethylene Glycol (Miralax) 17 gm DAILYPRN PRN ORAL Constipation 09/07/19 17:45 10/07/19 17:44 Sitagliptin Phosphate (Januvia) 100 mg ACBREAKFAST ORAL 09/09/19 06:30 10/09/19 06:29 09/09/19 06:41 Temazepam (Restoril) 15 mg HSPRN PRN ORAL Insomnia 09/07/19 17:45 09/14/19 17:44 Vidal Diaz MD Sep 09, 2019 12:44
--- NOTE | 2019-09-09 13:30 | NUR ---
NURSE NOTES: PMD made aware of no IV access. will cont to monitor.
--- NOTE | 2019-09-09 13:37 | NUR ---
CASE MANAGEMENT:REVIEW 09/09/19 SI: UNCONTROLLED HYPERTENSION UNCONTROLLED DM 98.1 76 18 155/70 98% ON RA IS: NORVASC PO BID JANUVIA PO QAM SS INSULIN SQ AC+HS PROTONIX PO QD HEPARIN SQ Q12 : TELEMETRY STATUS DCP: FROM HOME
--- NOTE | 2019-09-09 19:28 | NUR ---
HAND-OFF: Report given to Akiko.
--- NOTE | 2019-09-09 20:00 | NUR ---
NURSE NOTES: RECEIVED PATIENT LYING IN BED, AWAKE, ALERT/ORIENTED X4, VERBALLY RESPONSIVE, DENIES PAIN. 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 NO REPORT OF GI DISCOMFORT, NO NAUSEA/VOMITING. NO IV ACCESS, MD AWARE. ENCOURAGED PATIENT TO UTILIZE CALL LIGHT FOR ASSISTANCE, VERBALIZED UNDERSTANDING. SIDE RAILS UP X2 FOR MOBILITY, BED IN LOWEST POSITION FOR SAFETY. CONTINUE WITH CURRENT PLAN OF CARE. NAD.
[2019-09-10] VITALS: BP 132/63
--- NOTE | 2019-09-10 06:05 | NUR ---
NURSE NOTES: BLOOD GLUCOSE LEVEL MONITORED VIA GLUCOMETER WITH RESULT 113MG/DL, ASYMPTOMATIC, INSULIN PER SLIDING SCALE. NO SIGNIFICANT CHANGE OF CONDITION NOTED THROUGHOUT THE NIGHT, SAFETY MAINTAINED. NAD.
[2019-09-10] MEDS: NovoLOG Insulin Flexpen SUBQ SCH ×2 (06:47→12:11)
--- NOTE | 2019-09-10 07:01 | NUR ---
HAND-OFF: Report given to JAMIE PÉREZ.
--- NOTE | 2019-09-10 07:26 | Pulmonology Progress Note ---
Assessment/Plan Problems: (1) Uncontrolled hypertension (2) Uncontrolled diabetes mellitus (3) CKD stage 3 due to type 2 diabetes mellitus Assessment/Plan doing better wants to go home Januvia and sliding scale resume Norvasc 2.5 BID f/u endo recommendations Subjective ROS Limited/Unobtainable: No Constitutional: Reports: no symptoms HEENT: Repors: no symptoms Allergies: Coded Allergies: SULFA (SULFONAMIDE ANTIBIOTICS) (Verified Allergy, Intermediate, Hives, ) CODEINE (Verified Adverse Reaction, Mild, vomiting, 08/12/13) Objective Last 24 Hour Vital Signs Date Time Temp Pulse Resp B/P (MAP) Pulse Ox O2 Delivery O2 Flow Rate FiO2 09/10/19 04:00 63 09/10/19 04:00 63 09/10/19 00:00 84 09/10/19 00:00 97.7 84 18 132/63 (86) 99 09/09/19 21:00 Room Air 09/09/19 20:30 141/72 (95) 09/09/19 20:00 63 09/09/19 20:00 97.7 89 20 146/46 (79) 100 09/09/19 17:22 71 142/69 09/09/19 16:00 97.5 71 18 142/69 (93) 100 09/09/19 12:00 79 09/09/19 12:00 98.1 76 18 155/70 (98) 98 09/09/19 09:00 Room Air 09/09/19 08:00 96.8 76 18 146/67 (93) 100 Intake and Output 09/09/19 09/10/19 19:00 07:00 Intake Total 1140 ml 120 ml Balance 1140 ml 120 ml Intake Oral 1140 ml 120 ml # Voids 10 3 Objective General Appearance: WD/WN, no acute distress HEENT: normocephalic, atraumatic Respiratory/Chest: chest wall non-tender, lungs clear Breasts: no masses Cardiovascular: normal rate Abdomen: normal bowel sounds, soft, non tender Genitourinary: normal external genitalia Extremities: no cyanosis Laboratory Tests 09/09/19 18:00: Troponin I 0.000 Current Medications Medications (Trade) Dose Ordered Sig/Harjit Route PRN Reason Start Time Stop Time Status Last Admin Dose Admin Acetaminophen (Tylenol) 650 mg Q4H PRN ORAL FEVER 09/07/19 17:45 10/07/19 17:44 Albuterol/ Ipratropium (Albuterol/ Ipratropium) 3 ml Q4H PRN HHN Shortness of Breath 09/07/19 17:45 09/12/19 17:44 Amlodipine Besylate (Norvasc) 2.5 mg BID ORAL 09/09/19 18:00 10/09/19 17:59 09/09/19 17:22 Dextrose (Dextrose 50%) 25 ml Q30M PRN IV Hypoglycemia 09/08/19 19:00 10/08/19 18:59 Dextrose (Dextrose 50%) 50 ml Q30M PRN IV Hypoglycemia 09/08/19 19:00 10/08/19 18:59 Diltiazem HCl (Cardizem) 10 mg Q1H PRN IV heart rate more than 120 09/07/19 17:45 10/07/19 17:44 Enalaprilat (Vasotec) 2.5 mg Q6H PRN IV sbp more than 160 09/07/19 17:45 10/07/19 17:44 Heparin Sodium (Porcine) (Heparin 5000 units/ml) 5,000 units EVERY 12 HOURS SUBQ 09/07/19 21:00 10/07/19 20:59 09/09/19 20:45 Insulin Aspart (NovoLOG) BEFORE MEALS AND HS SUBQ 09/08/19 21:00 10/08/19 20:59 09/10/19 06:47 Nitroglycerin (Ntg) 0.4 mg Q5M PRN SL Prn Chest Pain 09/07/19 17:45 10/07/19 17:44 Ondansetron HCl (Zofran) 4 mg Q6H PRN IVP Nausea & Vomiting 09/07/19 17:45 10/07/19 17:44 Pantoprazole (Protonix) 40 mg DAILY ORAL 09/08/19 09:00 10/08/19 08:59 09/09/19 08:10 Polyethylene Glycol (Miralax) 17 gm DAILYPRN PRN ORAL Constipation 09/07/19 17:45 10/07/19 17:44 Sitagliptin Phosphate (Januvia) 100 mg ACBREAKFAST ORAL 09/09/19 06:30 1/12/20 06:29 09/10/19 06:45 Temazepam (Restoril) 15 mg HSPRN PRN ORAL Insomnia 09/07/19 17:45 09/14/19 17:44 Vidal Diaz MD Sep 10, 2019 07:26
[2019-09-10 08:00] VITALS: BP 150/77
--- NOTE | 2019-09-10 08:10 | NUR ---
NURSE NOTES: pt eating breakfast in bed. Pt on monitoring and evaluation advisor no signs of cardiac or respiratory distress at this time. She will be DC today home. Bed is locked and in lowest position. Call light within reach. Pt does not have and IV inserted, doctor is aware. Will continue to monitor pt and follow plans of care.
--- NOTE | 2019-09-10 09:31 | General Progress Note ---
Assessment/Plan Problem List: (1) Hypertensive urgency ICD Codes: I16.0 - Hypertensive urgency SNOMED: 101189711 (2) Uncontrolled diabetes mellitus ICD Codes: E11.65 - Uncontrolled diabetes mellitus SNOMED: 548795419 Assessment/Plan: continue Januvia 100 mg daily no need to resume Starlix for now continue NISS ac / hs Subjective Allergies: Coded Allergies: SULFA (SULFONAMIDE ANTIBIOTICS) (Verified Allergy, Intermediate, Hives, ) CODEINE (Verified Adverse Reaction, Mild, vomiting, 08/12/13) All Systems: reviewed and negative except above Subjective events noted glucose values are stable Item Value Date Time Bedside Blood Glucose 113 mg/dl 09/10/19 0647 Bedside Blood Glucose 127 mg/dl H 09/09/19 2046 Bedside Blood Glucose 181 mg/dl H 09/09/19 1720 Bedside Blood Glucose 97 mg/dl 09/09/19 1134 Objective Last 24 Hour Vital Signs Date Time Temp Pulse Resp B/P (MAP) Pulse Ox O2 Delivery O2 Flow Rate FiO2 09/10/19 08:00 97.2 80 18 150/77 (101) 99 09/10/19 04:00 63 09/10/19 04:00 63 09/10/19 00:00 84 09/10/19 00:00 97.7 84 18 132/63 (86) 99 09/09/19 21:00 Room Air 09/09/19 20:30 141/72 (95) 09/09/19 20:00 63 09/09/19 20:00 97.7 89 20 146/46 (79) 100 09/09/19 17:22 71 142/69 09/09/19 16:00 97.5 71 18 142/69 (93) 100 09/09/19 12:00 79 09/09/19 12:00 98.1 76 18 155/70 (98) 98 Intake and Output 09/09/19 09/10/19 19:00 07:00 Intake Total 1140 ml 120 ml Balance 1140 ml 120 ml Intake Oral 1140 ml 120 ml # Voids 10 3 Laboratory Tests 09/09/19 18:00: Troponin I 0.000 Height (Feet): 5 Height (Inches): 3.00 Weight (Pounds): 127 General Appearance: no apparent distress Neck: normal alignment Cardiovascular: normal rate Respiratory/Chest: decreased breath sounds Objective Current Medications Medications (Trade) Dose Ordered Sig/Harjit Route PRN Reason Start Time Stop Time Status Last Admin Dose Admin Acetaminophen (Tylenol) 650 mg Q4H PRN ORAL FEVER 09/07/19 17:45 10/07/19 17:44 Albuterol/ Ipratropium (Albuterol/ Ipratropium) 3 ml Q4H PRN HHN Shortness of Breath 09/07/19 17:45 09/12/19 17:44 Amlodipine Besylate (Norvasc) 2.5 mg BID ORAL 09/09/19 18:00 10/09/19 17:59 09/09/19 17:22 Dextrose (Dextrose 50%) 25 ml Q30M PRN IV Hypoglycemia 09/08/19 19:00 10/08/19 18:59 Dextrose (Dextrose 50%) 50 ml Q30M PRN IV Hypoglycemia 09/08/19 19:00 10/08/19 18:59 Diltiazem HCl (Cardizem) 10 mg Q1H PRN IV heart rate more than 120 09/07/19 17:45 10/07/19 17:44 Enalaprilat (Vasotec) 2.5 mg Q6H PRN IV sbp more than 160 09/07/19 17:45 10/07/19 17:44 Heparin Sodium (Porcine) (Heparin 5000 units/ml) 5,000 units EVERY 12 HOURS SUBQ 09/07/19 21:00 10/07/19 20:59 09/09/19 20:45 Insulin Aspart (NovoLOG) BEFORE MEALS AND HS SUBQ 09/08/19 21:00 10/08/19 20:59 09/10/19 06:47 Nitroglycerin (Ntg) 0.4 mg Q5M PRN SL Prn Chest Pain 09/07/19 17:45 10/07/19 17:44 Ondansetron HCl (Zofran) 4 mg Q6H PRN IVP Nausea & Vomiting 09/07/19 17:45 10/07/19 17:44 Pantoprazole (Protonix) 40 mg DAILY ORAL 09/08/19 09:00 10/08/19 08:59 09/09/19 08:10 Polyethylene Glycol (Miralax) 17 gm DAILYPRN PRN ORAL Constipation 09/07/19 17:45 10/07/19 17:44 Sitagliptin Phosphate (Januvia) 100 mg ACBREAKFAST ORAL 09/09/19 06:30 10/09/19 06:29 09/10/19 06:45 Temazepam (Restoril) 15 mg HSPRN PRN ORAL Insomnia 09/07/19 17:45 09/14/19 17:44 Ilya Lopez MD Sep 10, 2019 09:31
[2019-09-10 10:13] VITALS: BP 150/77
[2019-09-10] MEDS: Heparin 5000 units/ml inj SUBQ SCH (10:14)
--- NOTE | 2019-09-10 12:21 | Cardiology Progress Note ---
Assessment/Plan Assessment/Plan [id number] Objective Last 24 Hour Vital Signs Date Time Temp Pulse Resp B/P (MAP) Pulse Ox O2 Delivery O2 Flow Rate FiO2 09/10/19 10:13 80 150/77 09/10/19 09:00 Room Air 09/10/19 08:00 61 09/10/19 08:00 97.2 80 18 150/77 (101) 99 09/10/19 04:00 63 09/10/19 04:00 63 09/10/19 00:00 84 09/10/19 00:00 97.7 84 18 132/63 (86) 99 09/09/19 21:00 Room Air 09/09/19 20:30 141/72 (95) 09/09/19 20:00 63 09/09/19 20:00 97.7 89 20 146/46 (79) 100 09/09/19 17:22 71 142/69 09/09/19 16:00 97.5 71 18 142/69 (93) 100 Intake and Output 09/09/19 09/10/19 19:00 07:00 Intake Total 1140 ml 120 ml Balance 1140 ml 120 ml Intake Oral 1140 ml 120 ml # Voids 10 3 Laboratory Tests Test 09/09/19 18:00 Troponin I 0.000 ng/mL (0.000-0.056) Nir Dewitt MD Sep 10, 2019 12:20
--- NOTE | 2019-09-10 13:43 | NUR ---
NURSE NOTES: pt Dc in stable condition. pt left with family (son) via private vehicle. cardiac rehabilitation specialist was taken off from pt. Pt had no IV. Medical bracelet was taken off. DC instructions were given twice, once to pt and the final time with pt and family member. Pt. was given prescription and she will fill it out today. Pt. verbalized understanding of DC instructions and will follow up with PCP within 1 wk of DC. She also agreed to take B/P meds as well as diabetic meds daily because she doesn't want to be back to the hospital. Son is also looking for a person to help his mom with medication administration.
--- NOTE | 2019-09-10 20:51 | Discharge Summary ---
Discharge Summary Discharge Summary _ DATE OF ADMISSION: 09/07/2019 DATE OF DISCHARGE: 09/10/2019 DISCHARGED BY: Dr. Diaz REASON FOR ADMISSION: 68 years old female with past medical history of hypertension, diabetes mellitus , recent CVA, sent to emergency department for evaluation. Patient stopped taking her medications. her blood pressure was significantly elevated. Blood sugar was elevated as well. Upon evaluation blood pressure was 184/73. BUN 27 creatinine 1.3. Stable electrolytes. CBC unremarkable. Stable LFT. Troponin negative. EKG revealed sinus rhythm ,no acute ischemic changes. Chest x-ray revealed no acute cardiopulmonary pathology. CT of the head demonstrated no evidence of acute intracranial bleeding ,mass effect or cortical edema. Chronic lacunar infarcts in the bilateral basal ganglia. Patient subsequently admitted to telemetry floor for further management CONSULTANTS: division road supervisor Dr. Dewitt mult au matic operator Dr. Lopez [facility] COURSE: Patient admitted to telemetry floor. Director Surgical followed. Antihypertensive regimen was optimized. Echocardiogram revealed preserved ejection fraction of 65% and mild left ventricular hypertrophy. No evidence of wall motion abnormality. Right ventricular systolic pressure of 24. Lipid panel revealed elevated cholesterol 215 ,elevated LDL 109 ,stable triglycerides. Patient was instructed on low fat low cholesterol cardiac diabetic diet. Patient was reluctant to start statin. Repeated troponin x2 were negative as well. TSH within normal limits. Blood pressure was managed with calcium channel jt . blood pressure improved. Diabetic diet provided. Blood sugar was managed as per mult au matic operator recommendation with Januvia and sliding scale of insulin as needed. Hemoglobin A1c 7.4. Patient was working with physical therapist. Supportive care provided. Patient clinically stabilized and was ready for discharge home. Patient was strongly advised on compliance with medication regimen. FINAL DIAGNOSES: Hypertensive urgency Uncontrolled diabetes mellitus Chronic kidney disease stage III due to type 2 diabetes mellitus Medication noncompliance Hyperlipidemia History of CVA DISCHARGE MEDICATIONS: See Medication Reconciliation list. DISCHARGE INSTRUCTIONS: Patient was discharged home. Patient was encouraged compliance with medication regimen and diet. Follow-up with a primary care provider in 1 week. I have been assigned to dictate discharge summary for this account. I was not involved in the patient's management. Lore Schreiber NP Sep 10, 2019 20:51
--- NOTE | 2019-09-10 23:15 | Consultation ---
DATE OF CONSULTATION: 09/10/2019 CONSULTING PHYSICIAN: Nir Dewitt M.D. REFERRING PHYSICIAN: Vidal Diaz M.D. REASON FOR REFERRAL: Hypertension. HISTORY OF PRESENT ILLNESS: This is an elderly female, who is known to me from prior evaluation hospitalization. The patient presented to the hospital because of elevated blood sugar. She has been noncompliant with her medications including diabetic and hypertensive. She indicated that she was doing so well and she thought that she no longer has to take the medication. So, she stopped. She went to her primary care doctor's office with significant elevated blood pressure, was sent to the emergency room. At the present time, she has done better. With the resumption of the medication, she feels better. She has no chest pain or shortness of breath. No PND or orthopnea. She uses two pillows. There is no dizziness or lightheadedness on standing. She is ambulatory. She walks around. She does go some shopping she says. She does pain, pressure, tightness or heaviness in her chest. PAST MEDICAL HISTORY: Positive for history of diabetes mellitus, hypertension, cervical cancer, history of tuberculosis that was treated as a child, history of rheumatoid arthritis, chronic renal insufficiency, and atypical chest pain. ALLERGIES: She has had allergies to sulfa. SOCIAL HISTORY: She does not smoke and never drank alcoholic beverages. She lives at home. REVIEW OF SYSTEMS: GASTROINTESTINAL: Positive for constipation. GENITOURINARY: Negative. PULMONARY: Negative. CONSTITUTIONAL: Negative. NEUROLOGICAL: Negative. PHYSICAL EXAMINATION: GENERAL: Shows to be an elderly female in no respiratory distress. NECK: Supple. No jugular venous distention. LUNGS: Clear to auscultation and percussion. CARDIAC: S1 is normal. S2 is normal. Regular rate and rhythm. No heaves, thrills, gallops, or rubs are noted. ABDOMEN: Soft and nontender. Positive bowel sounds. EXTREMITIES: There is no clubbing or cyanosis. There is no edema. NEUROLOGICAL: She is awake, alert, responsive, in no apparent respiratory distress. LABORATORY VALUES: At the time of her initial hospitalization presentation, blood pressure 184/73. Her most recent blood pressure is 150/77. She has been resumed on medications. White count of 6, hemoglobin 10.9, and platelet count of 180,000. Sodium is 139, potassium 4.0, chloride 102, bicarbonate 33, BUN 27, creatinine 1.3, and glucose of 159. Her 3 sets of cardiac enzymes all negative. Total cholesterol 202 with LDL of 109 and HDL of 93. TSH of 3.374. A1c of 7.4. Coags, INR 1 and PTT of 24. Her chest x-ray that was performed in the emergency room, no radiographic evidence of cardiopulmonary disease and she did have a CT scan of her head that showed no evidence of acute intracranial hemorrhage, and no atrophy of nonspecific periventricular hypoattenuation to suggest chronic ischemic microvascular changes, chronic or acute infarctions. An echocardiogram performed on 09/08/2019 showed normal ejection fraction of 65%. Really no significant valvular regurgitation. There is mild diastolic relaxation abnormality. ASSESSMENT: 1. Hypertension. 2. Medication noncompliance. 3. History of diabetes mellitus. 4. History of stroke. 5. History of hyperlipidemia. PLAN: Dr. Diaz, this patient was seen in cardiac consultation. The patient's blood pressure has improved and she should be continued on medications. She may be fine tuning the medications as outpatient and during the last hospitalization her medications were amlodipine 2.5 mg twice daily and she was apparently responsive to that medication. At this time, she is on amlodipine again and that seems to be working. If she has room to increase, she may need ARBs for her diabetes and hypertension as well. Dr. Diaz, thank you for allowing me to participate in the care of this patient. Nir Dewitt M.D. DR: SHANE JOB#: [id number] CC:
== END 2019-09-10 13:50 | disposition home or self-care (01) | DRG 305 ==
LOC: EMR 17:15 → 2E 18:13 → EDBEDREQ 18:51
DX: I16.0 Hypertensive urgency (principal); I10 Essential (primary) hypertension; E11.22 Type 2 diabetes mellitus with diabetic chronic kidney disease; N18.3 Chronic kidney disease, stage 3 (moderate); Z88.6 Allergy status to analgesic agent; Z88.2 Allergy status to sulfonamides; Z91.14 Patient's other noncompliance with medication regimen; Z86.73 Personal history of transient ischemic attack (TIA), and cerebral infarction without residual deficits; E11.65 Type 2 diabetes mellitus with hyperglycemia; E78.5 Hyperlipidemia, unspecified; F03.90 Unspecified dementia, unspecified severity, without behavioral disturbance, psychotic disturbance, mood disturbance, and anxiety; Z85.41 Personal history of malignant neoplasm of cervix uteri; Z86.11 Personal history of tuberculosis; M06.9 Rheumatoid arthritis, unspecified
CPT/HCPCS: 36415; 70450; 71045; 80053; 80061; 82962; 83036; 84443; 84484; 85025; 85610; 85730; 86140; 93005; 93306; 96374; 99285; J1815

== ENCOUNTER 2019-11-17 16:20 | Emergency (ER) | payer MEDICARE ==
[~2019-11-17] VITALS: Ht 160 cm; Wt 58.1 kg
[~2019-11-17 16:20] MED LIST changes: +MULTIVITAMINS1 EAC2 ORAL; +NATEGLINIDE60 MG PO; +VITAMIN B-12500 MCG ORAL; +VITAMIN C500 M1 ORAL
--- NOTE | 2019-11-17 16:54 | Emergency Room Report ---
History of Present Illness General Chief Complaint: General Complaint Source: Patient Present Illness HPI 68 YO female presents to the ED c/o beign sent here to have BP checked. A note from her PCP states BP needs to be less than 160/100. Pt .was just seen by here PCP yesterday and had blood work done. She reports hx of HTn and CVA. She has had to be admitted several times in the past for HTN urgency and uncontrolled HTN. She denies SMITH, SOB, CP or Palpitations. She still has her written rx's for BP medications. She also has hx of DM. She denies any symptoms at this time. Denies Dizziness or visual changes. Allergies: Coded Allergies: SULFA (SULFONAMIDE ANTIBIOTICS) (Verified Allergy, Intermediate, Hives, ) CODEINE (Verified Adverse Reaction, Mild, vomiting, 08/12/13) Patient History Past Medical History: see triage record, HTN, CVA/TIA Past Surgical History: unable to obtain Pertinent Family History: none Now: No Reviewed Nursing Documentation: PMH: Agreed; PSxH: Agreed Nursing Documentation-PMH Hx Cardiac Problems: Yes Hx Hypertension: Yes Hx Diabetes: Yes Hx Cancer: No Hx Gastrointestinal Problems: No Hx Neurological Problems: Yes Hx Cerebrovascular Accident: Yes - April 2019 Hx Dementia: Yes Review of Systems All Other Systems: negative except mentioned in HPI Physical Exam Vital Signs Date Time Temp Pulse Resp B/P (MAP) Pulse Ox O2 Delivery O2 Flow Rate FiO2 11/17/19 16:32 97.5 68 17 140/69 (92) 98 Room Air Sp02 EP Interpretation: reviewed, normal General Appearance: no apparent distress, alert, GCS 15, non-toxic Head: normocephalic, atraumatic Eyes: bilateral eye normal inspection, bilateral eye PERRL ENT: hearing grossly normal, normal voice Neck: full range of motion Respiratory: chest non-tender, lungs clear, normal breath sounds, speaking full sentences Cardiovascular #1: regular rate, rhythm, no edema Musculoskeletal: back normal, normal range of motion, gait/station normal, non- tender Neurologic: alert, motor strength/tone normal, oriented x3, sensory intact, responsive, speech normal Psychiatric: judgement/insight normal Medical Decision Making PA Attestation Dr. Sharif is my supervising Physician whom patient management has been discussed with. Diagnostic Impression: Primary Impression: Encounter for medical screening examination ER Course 68 YO female presents to the ED c/o beign sent here to have BP checked. A note from her PCP states BP needs to be less than 160/100. Pt .was just seen by here PCP yesterday and had blood work done. She reports hx of HTn and CVA. She has had to be admitted several times in the past for HTN urgency and uncontrolled HTN. She denies SMITH, SOB, CP or Palpitations. She still has her written rx's for BP medications. She also has hx of DM. She denies any symptoms at this time. Denies Dizziness or visual changes. Ddx considered but are not limited to HTN urgency/emergency, CVA, elevated BP, normal exam just to name a few. Vital signs: are WNL, pt. is afebrile H&PE are most consistent with normal medical screening exam, normal BP reading. ORDERS: none required at this time, the diagnosis is clinical ED INTERVENTIONS: None required at this time. DISCHARGE: At this time pt. is stable for d/c to home. Will provide printed patient care instructions, and any necessary prescriptions. Care plan and follow up instructions have been discussed with the patient prior to discharge. Last Vital Signs Date Time Temp Pulse Resp B/P (MAP) Pulse Ox O2 Delivery O2 Flow Rate FiO2 11/17/19 16:32 97.5 68 17 140/69 (92) 98 Room Air Disposition: HOME, SELF-CARE Condition: Stable Patient Instructions: Form - Blood Pressure Record Sheet, How to Take Your Blood Pressure, [id number] Additional Instructions: Take medications as directed. Follow up with a Primary Care Provider in 3-5 days, even if your symptoms have resolved. Return sooner to ED if new symptoms occur, or current symptoms become worse. - Please note that this Emergency Department Report was dictated using [employer] employee communications technology software, occasionally this can lead to erroneous entry secondary to interpretation by the dictation equipment. Risa Polanco Nov 17, 2019 16:54
--- NOTE | 2019-11-17 17:00 | NUR ---
ER DISCHARGE NOTE: Patient is cleared to be discharged per ERMD, pt is aox4, on room air, with stable vital signs. pt was given dc instructions, pt was able to verbalize understanding, pt is able to ambulate with steady gait. pt took all belongings.
[2019-11-17 17:09] VITALS: BP 140/69
[2019-11-17 17:11] VITALS: BP 140/69
== END 2019-11-17 17:00 | disposition home or self-care (01) ==
LOC: EMR 16:58
DX: Z76.89 Persons encountering health services in other specified circumstances (principal); I10 Essential (primary) hypertension; E11.9 Type 2 diabetes mellitus without complications; F03.90 Unspecified dementia, unspecified severity, without behavioral disturbance, psychotic disturbance, mood disturbance, and anxiety; Z86.73 Personal history of transient ischemic attack (TIA), and cerebral infarction without residual deficits; Z88.2 Allergy status to sulfonamides; Z88.5 Allergy status to narcotic agent
CPT/HCPCS: 99281